=== PATIENT | female | born 1955 | race Caucasian/White ===

== ENCOUNTER 2016-10-27 18:36 | Inpatient (IN) ==
[2016-10-27] MEDS ORDERED: 0.9 % Sodium Chloride 1,000 ML IVC ONE (18:50)
[2016-10-27 19:10] LABS: Basophils % 0.2 %; Eosinophils % 0.1 %; Hematocrit 38.8 % (35.3-44.9); Hemoglobin 12.8 g/dL (11.5-15.4); Immature Granulocytes % 0.6 % (0-4); Lymphocytes # 1.5 K/mcL (0.6-4.6); Lymphocytes % 9.5 %; Mean Corpuscular Volume 91.1 fL (83.0-100.0); Mean Platelet Volume 9.6 fL (9.4-12.4); Monocytes % 6.1 %; Neutrophils # 13.3 K/mcL (1.6-8.9); Platelet Count 262 K/mcL (140-400); Red Blood Count 4.26 M/mcL (3.82-4.97); Red Cell Distribution Width 15.4 % (11.5-14.5); Segmented Neutrophils % 83.5 %
[2016-10-27 19:15] LABS: ABG Base Excess 4.7 mEq/L (-2.0 to 3.0); ABG HCO3 28.2 mEQ/L (21-27); ABG Oxygen Saturation 91 % (95-98); ABG PCO2 37 mmHg (35-45); ABG PH 7.49 pH Units (7.32-7.45); ABG PO2 55 mmHg (85-104); ABG TCO2 29.3 mEq/L (20-26); Blood Gas FiO2 28 %; INR 1.2; Prothrombin Time 12.6 Seconds (9.4-12.1)
[2016-10-27 19:17] LABS: Activated Partial Thrombo Time 27.9 Seconds (26.0-36.0)
[2016-10-27] MEDS ORDERED: Ipratropium/Albuterol Neb 3 ML IH ONE (19:17)
--- NOTE | 2016-10-27 19:18 | Emergency Department Note ---
Disposition Clinical Impression: Hypoxemia Pneumonia Qualifiers: Pneumonia type: due to unspecified organism Laterality: left Lung location: lower lobe of lung Qualified Code(s): J18.1 - Lobar pneumonia, unspecified organism Disposition: Admitted As Inpatient SOB HPI - General Chief Complaint: ED Altered Mental Status Stated Complaint: ams low o2 Time Seen by Provider: 10/27/16 18:37 Source: family (), EMS Mode of arrival: EMS Limitations: no limitations Nursing Notes Reviewed: Yes Vital Signs Reviewed: Yes - History of Present Illness Pt Subjective Complaint: shortness of breath Onset (ago): day(s) (3) Context: recent illness Severity: moderate Consistency/Duration: intermittent, gradually worsening Improves with: rest, bronchodilators Worsens with: nothing Known history of: COPD Associated symptoms: Reports: fever, cough, wheezing, sputum production Treatment prior to arrival: oxygen, bronchodilator Cough present: Yes Cough Description: Involuntary Cough Frequency: Intermittent Sputum production: Yes Sputum Amount: Small Sputum Color: Clear - Related Data Home Medications Medication Instructions Recorded Confirmed Alprazolam [Xanax 0.5 MG Tablet] 0.25 - 0.5 mg PO BID PRN 03/16/16 10/27/16 Atorvastatin Calcium [Lipitor] 20 mg PO HS 03/16/16 10/27/16 Citalopram Hydrobromide [Celexa] 40 mg PO QAM 03/16/16 10/27/16 Cyclobenzaprine [Flexeril] 10 mg PO TID 03/16/16 10/27/16 Metoprolol XL (24 HR) Succ [Toprol 25 mg PO DAILY 03/16/16 10/27/16 Xl] Albuterol Neb [Proventil Neb] 2.5 mg IH TID PRN 10/27/16 10/27/16 Budesonide/Formoterol 160/4.5 2 puff IH BIDR 10/27/16 10/27/16 [Symbicort 160/4.5] Gabapentin [Neurontin] 600 mg PO TID 10/27/16 10/27/16 Montelukast [Singulair] 10 mg PO HS 10/27/16 10/27/16 Naloxegol Oxalate [Movantik] 25 mg PO DAILY 10/27/16 10/27/16 Oxycodone HCl/Acetaminophen 1 each PO TID PRN 10/27/16 10/27/16 [Percocet 7.5-325 mg Tablet] Varenicline Tartrate [Chantix] 1 mg PO Q12H 10/27/16 10/27/16 Allergies Allergy/AdvReac Type Severity Reaction Status Date / Time No Known Allergies Allergy Unverified 08/12/15 09:10 All systems ED: reviewed and negative except as stated. Constitutional: Reports: fever, weakness Respiratory: Reports: cough, dyspnea, wheezes Past Medical History - Past Medical History Source: patient, old records reviewed, obtained from family, nursing notes reviewed Medical history: Reports: arthritis, asthma, COPD, hyperlipidemia, other Surgical history: Reports: hysterectomy, orthopedic, other Psychiatric history: Reports: anxiety, depression - Social History Smoking Status: Current every day smoker Smokeless Tobacco Status: No Alcohol use: Reports: occasionally Drug use: Reports: none Physical Exam - General Limitations: altered mental status (patient has some minor confusion with recalling some answers to her illness the last 2 days) General appearance: alert - Head Head exam: atraumatic, normocephalic, normal inspection - Eye Eye exam: Present: normal appearance, PERRL, EOMI - Expanded Eye Exam Pupils: Left: reactive - ENT ENT exam: normal exam, normal oropharynx, mucous membranes moist - Expanded ENT Exam External ear exam: Present: normal external inspection Mouth exam: Present: normal external inspection Teeth exam: Present: normal inspection Throat exam: Present: normal inspection - Neck Neck exam: Present: normal inspection, full ROM, trachea midline - Chest Chest inspection: Present: normal inspection, symmetric chest wall rise - Respiratory Respiratory exam: Present: wheezes (with course scattered rhonchi). Absent: respiratory distress - Cardiovascular Cardiovascular exam: Present: tachycardia - Abdominal Exam Abdominal exam: Present: soft, Non-Tender. Absent: tenderness, distention, guarding, rebound, rigidity - Extremities Exam Extremities exam: Present: normal inspection, full ROM. Absent: tenderness, pedal edema - Expanded Upper Extremity Exam Shoulder exam: Present: normal inspection, full ROM Arm exam: Present: normal inspection, full ROM Elbow exam: Present: normal inspection, full ROM Forearm/Wrist exam: Present: normal inspection, full ROM Hand exam: Present: normal inspection, full ROM Vascular exam: Normal: capillary refill, radial pulse - Expanded Lower Extremity Exam Hip/Pelvis exam: Present: normal inspection, full ROM Upper leg exam: Present: normal inspection, full ROM Knee exam: Present: normal inspection, full ROM Lower leg exam: Present: normal inspection, full ROM Ankle exam: Present: normal inspection, full ROM Foot/toe exam: Present: normal inspection, full ROM Neurovascular/Tendon exam: Absent: motor deficit, sensory deficit, tendon deficit - Back Exam Back exam: Present: normal inspection, full ROM. Absent: tenderness - Neurological Exam Neurological exam: Present: alert, oriented X3 - Expanded Neurological Exam Patient oriented to: Present: person, place, time Coma Scale Eye Opening: Spontaneous Coma Scale Motor Response: Obeys Commands Coma Scale Verbal Response: Oriented Coma Scale Total: 15 - Psychiatric Psychiatric exam: Present: normal affect, normal mood - Skin Skin exam: Present: warm, dry, intact, normal color Course Vital Signs Temperature 102.9 F H 10/27/16 18:37 Pulse Rate 122 10/27/16 18:37 Respiratory Rate 18 10/27/16 18:37 Blood Pressure 136/84 10/27/16 18:37 O2 Sat by Pulse Oximetry 88 L 10/27/16 18:37 Temperature 97.8 F 10/29/16 10:50 Pulse Rate 98 10/29/16 10:50 Respiratory Rate 16 10/29/16 10:50 Blood Pressure 100/68 10/29/16 10:50 O2 Sat by Pulse Oximetry 92 L 10/29/16 10:50 Oxygen Delivery Oxygen Delivery Nasal Cannula Shortness of Breath/Dyspnea - Differential Diagnosis Likely: acute exacerbation of chronic obstructive airways disease, congestive heart failure, pneumonia, asthma with exacerbation, pulmonary embolism, pneumothorax, arrhythmia - Medical Records Medical records reviewed: Yes I reviewed the patient's medical records. - Lab Data Lab results reviewed: Yes I reviewed the patient's lab results. Result diagrams: 10/28/16 03:24 10/28/16 03:24 Lab Results 10/27/16 10/27/16 10/27/16 Range/Units 18:50 18:50 18:50 WBC 15.9 H (4.3-11.1) K/mcL RBC 4.26 (3.82-4.97) M/mcL Hgb 12.8 (11.5-15.4) g/dL Hct 38.8 (35.3-44.9) % MCV 91.1 (83.0-100.0) fL MCH 30.0 (28.0-33.3) pg MCHC 33.0 (31.6-35.5) g/dL RDW 15.4 H (11.5-14.5) % Plt Count 262 (140-400) K/mcL MPV 9.6 (9.4-12.4) fL Immature Gran % 0.6 (0-4) % Seg Neutrophils % 83.5 % Lymphocytes % 9.5 % Monocytes % 6.1 % Eosinophils % 0.1 % Basophils % 0.2 % Neutrophils # 13.3 H (1.6-8.9) K/mcL Lymphocytes # 1.5 (0.6-4.6) K/mcL Monocytes # 1.0 (0.0-1.3) K/mcL Eosinophils # 0.0 (0.0-0.6) K/mcL Basophils # 0.0 (0.0-0.2) K/mcL PT 12.6 H (9.4-12.1) Seconds INR 1.2 APTT 27.9 (26.0-36.0) Seconds ABG pH (7.32-7.45) pH Units ABG pCO2 (35-45) mmHg ABG pO2 (85-104) mmHg ABG HCO3 (21-27) mEQ/L ABG Total CO2 (20-26) mEq/L ABG O2 Saturation (95-98) % ABG Base Excess (-2.0 to 3.0) mEq/L Blood Gas Modality Inspired O2 % Sodium 132 L (136-145) mEq/L Potassium 3.6 (3.5-4.5) mEq/L Chloride 95 L (98-109) mEq/L Carbon Dioxide 26 (19-29) mEq/L BUN 9 (7-20) mg/dL Creatinine 0.76 (0.57-1.11) mg/dL Est GFR ( Amer) > 60 (> 60) Est GFR (Non-Af Amer) > 60 (> 60) BUN/Creatinine Ratio 12 (6-26) Glucose 87 (70-99) mg/dL Calculated Osmolality 272 L (280-300) Lactic Acid (0.5-2.2) mmol/L Calcium 8.9 (8.6-10.8) mg/dL Troponin I (0-0.03) ng/mL B-Natriuretic Peptide (0-100) pg/mL 10/27/16 10/27/16 10/27/16 Range/Units 18:50 18:50 18:50 WBC (4.3-11.1) K/mcL RBC (3.82-4.97) M/mcL Hgb (11.5-15.4) g/dL Hct (35.3-44.9) % MCV (83.0-100.0) fL MCH (28.0-33.3) pg MCHC (31.6-35.5) g/dL RDW (11.5-14.5) % Plt Count (140-400) K/mcL MPV (9.4-12.4) fL Immature Gran % (0-4) % Seg Neutrophils % % Lymphocytes % % Monocytes % % Eosinophils % % Basophils % % Neutrophils # (1.6-8.9) K/mcL Lymphocytes # (0.6-4.6) K/mcL Monocytes # (0.0-1.3) K/mcL Eosinophils # (0.0-0.6) K/mcL Basophils # (0.0-0.2) K/mcL PT (9.4-12.1) Seconds INR APTT (26.0-36.0) Seconds ABG pH 7.49 H (7.32-7.45) pH Units ABG pCO2 37 (35-45) mmHg ABG pO2 55 L (85-104) mmHg ABG HCO3 28.2 H (21-27) mEQ/L ABG Total CO2 29.3 H (20-26) mEq/L ABG O2 Saturation 91 L (95-98) % ABG Base Excess 4.7 H (-2.0 to 3.0) mEq/L Blood Gas Modality [place] Inspired O2 28 % Sodium (136-145) mEq/L Potassium (3.5-4.5) mEq/L Chloride (98-109) mEq/L Carbon Dioxide (19-29) mEq/L BUN (7-20) mg/dL Creatinine (0.57-1.11) mg/dL Est GFR ( Amer) (> 60) Est GFR (Non-Af Amer) (> 60) BUN/Creatinine Ratio (6-26) Glucose (70-99) mg/dL Calculated Osmolality (280-300) Lactic Acid (0.5-2.2) mmol/L Calcium (8.6-10.8) mg/dL Troponin I 0.01 (0-0.03) ng/mL B-Natriuretic Peptide 15 (0-100) pg/mL 10/27/16 Range/Units 18:50 WBC (4.3-11.1) K/mcL RBC (3.82-4.97) M/mcL Hgb (11.5-15.4) g/dL Hct (35.3-44.9) % MCV (83.0-100.0) fL MCH (28.0-33.3) pg MCHC (31.6-35.5) g/dL RDW (11.5-14.5) % Plt Count (140-400) K/mcL MPV (9.4-12.4) fL Immature Gran % (0-4) % Seg Neutrophils % % Lymphocytes % % Monocytes % % Eosinophils % % Basophils % % Neutrophils # (1.6-8.9) K/mcL Lymphocytes # (0.6-4.6) K/mcL Monocytes # (0.0-1.3) K/mcL Eosinophils # (0.0-0.6) K/mcL Basophils # (0.0-0.2) K/mcL PT (9.4-12.1) Seconds INR APTT (26.0-36.0) Seconds ABG pH (7.32-7.45) pH Units ABG pCO2 (35-45) mmHg ABG pO2 (85-104) mmHg ABG HCO3 (21-27) mEQ/L ABG Total CO2 (20-26) mEq/L ABG O2 Saturation (95-98) % ABG Base Excess (-2.0 to 3.0) mEq/L Blood Gas Modality Inspired O2 % Sodium (136-145) mEq/L Potassium (3.5-4.5) mEq/L Chloride (98-109) mEq/L Carbon Dioxide (19-29) mEq/L BUN (7-20) mg/dL Creatinine (0.57-1.11) mg/dL Est GFR ( Amer) (> 60) Est GFR (Non-Af Amer) (> 60) BUN/Creatinine Ratio (6-26) Glucose (70-99) mg/dL Calculated Osmolality (280-300) Lactic Acid 1.1 (0.5-2.2) mmol/L Calcium (8.6-10.8) mg/dL Troponin I (0-0.03) ng/mL B-Natriuretic Peptide (0-100) pg/mL - Radiology Data Radiology results reviewed: Yes I reviewed the patient's radiology results. Critical Care Time Critical Care Time: Yes Total Critical Care Time: 35 Attestation: Critical care performed: Time is exclusive of separately billable procedures. Time includes: direct patient care, patient reassessment, coordination of patient care, interpretation of data (laboratory data, radiology data, and respiratory data), review of patient's medical records, medical consultation and documentation of patient care. Procedures included in critical care time: Procedures excluded from critical care time:
[2016-10-27 19:24] LABS: BUN/Creatinine Ratio 12 (6-26); Blood Urea Nitrogen 9 mg/dL (7-20); Calcium 8.9 mg/dL (8.6-10.8); Carbon Dioxide 26 mEq/L (19-29); Chloride 95 mEq/L (98-109); Glucose 87 mg/dL (70-99); Osmolality,Calculated 272 (280-300); Potassium 3.6 mEq/L (3.5-4.5); Sodium 132 mEq/L (136-145); eGFR For African Americans > 60 (> 60); eGFR For Non-African Americans > 60 (> 60)
[2016-10-27] MEDS ORDERED: methylPREDNISolone 125 MG/2 ML VIAL IVP ONE (19:46)
[2016-10-27] MEDS ORDERED: Levofloxacin 750 MG/150 ML 750 MG/150 ML BAG IVPB ONE (19:46)
--- NOTE | 2016-10-28 00:28 | Internal Med History&Physical ---
Date of Encounter: 10/27/16 Time of Encounter: 23:55 Assessment and Plan (1) COPD exacerbation Current visit: No Status: Acute COPD exacerbation with associated leukocytosis and possible pneumonia according to chest x-ray. We will continue with IV antibiotics. Systemic steroids and nebulizer therapy. Negative influenza testing. Oxygen supplementation will be provided. DVT prophylaxis as per hospital protocol. GI prophylaxis. Negative troponin. Brain natriuretic peptide within normal limits. (2) DVT prophylaxis Current visit: No Status: Acute DVT prophylaxis as per hospital protocol. (3) HTN (hypertension) Current visit: No Status: Acute Qualifiers: Qualified Code(s): I10 - Essential (primary) hypertension (4) Hyponatremia Current visit: No Status: Acute Seems to be chronic, hyponatremia levels noted in the past. Continue monitoring. Internal Medicine - H&P: HPI Chief complaint: Fever Admitted From: Emergency Dept Plans for Post Hospital Care: Home History of present illness: Ms. Dutton is a 61 year old female with past medical history of COPD, former smoker, hypertension. The patient presented to our emergency department complaining of 5 days of progressive shortness of breath, productive cough of yellowish sputum, fever and chills associated with generalized weakness and confusion. The patient has been febrile since arrival to our emergency department. She denies chest pain, loss of consciousness, recent trauma. Initial workup included a Duragesic count of 15.9, he will be put 0.5. Biochemistry was significant for sodium of 132, potassium 3.6, creatinine 0.76, glucose 87. Troponin initially negative, brain atretic peptide was 16. Chest x -ray was reported as possible atelectasis versus pneumonia. The patient has been admitted for further management and workup. Testing for influenza was negative. During my encounter with the patient she was alert, awake, oriented in time, place and person. Past Med Surg Social Fam HX - Past Medical History Medical history: arthritis, asthma, COPD, hyperlipidemia, other Psychiatric history: anxiety, depression - Past Surgical History Surgical History: hysterectomy, orthopedic, other - Social History Smoking Status: Former smoker Smokeless Tobacco Status: No Alcohol use: occasionally Drug use: none - Family History Mother Hx Family Cardiac Disorders: Yes (CHF) Hx Family Respiratory Disorders: Yes Father Hx Family Cardiac Disorders: Yes (DC) Internal Medicine - H&P: Meds Alprazolam [Xanax 0.5 MG Tablet] 0.25 - 0.5 mg PO BID PRN 03/16/16 [History] Atorvastatin Calcium [Lipitor] 20 mg PO HS 03/16/16 [History] Citalopram Hydrobromide [Celexa] 40 mg PO QAM 03/16/16 [History] Cyclobenzaprine [Flexeril] 10 mg PO TID 03/16/16 [History] Metoprolol XL (24 HR) Succ [Toprol Xl] 25 mg PO DAILY 03/16/16 [History] Albuterol Neb [Proventil Neb] 2.5 mg IH TID PRN 10/27/16 [History] Budesonide/Formoterol 160/4.5 [Symbicort 160/4.5] 2 puff IH BIDR 10/27/16 [ History] Gabapentin [Neurontin] 600 mg PO TID 10/27/16 [History] Montelukast [Singulair] 10 mg PO HS 10/27/16 [History] Naloxegol Oxalate [Movantik] 25 mg PO DAILY 10/27/16 [History] Oxycodone HCl/Acetaminophen [Percocet 7.5-325 mg Tablet] 1 each PO TID PRN 10/27 [History] Varenicline Tartrate [Chantix] 1 mg PO Q12H 10/27/16 [History] Allergies No Known Allergies Allergy (Unverified 08/12/15 09:10) All Systems PM: A 10-system review of systems was performed and is negative for pertinent findings except as documented above in the HPI. - Constitutional Constitutional: as per HPI, chills, excessive sweating, fever(s), malaise, no night sweats - EENT Eyes: as per HPI, no change in vision, no discharge, no pain, no photophobia Ears: as per HPI, no ear discharge, no ear pain, no tinnitus Nose, mouth and throat: as per HPI, no dysphagia, no nasal discharge, no neck pain, no sore throat - Breasts Breasts: as per HPI - Cardiovascular Cardiovascular ROS IM: as per HPI, no chest pain, no diaphoresis, no dyspnea, no lightheadedness, no palpitations, no syncope - Respiratory Respiratory: as per HPI, cough, dyspnea, no wheezing, no excessive phlegm production - Gastrointestinal Gastrointestinal: as per HPI, no abdominal pain, no diarrhea, no hematemesis, no hematochezia, no melena, no nausea, no vomiting - Genitourinary Genitourinary: as per HPI, no change in urinary stream, no dysuria, no flank pain, no hematuria Menstruation: as per HPI - Musculoskeletal Musculoskeletal ROS IM: as per HPI, no numbness, no tingling - Integumentary Integumentary IM: as per HPI, no rash, no unusual bruising - Neurological Neurological ROS: as per HPI, no confusion, no convulsions, no focal weakness, no numbness, no tingling, no tremor(s) - Psychiatric Psychiatric: as per HPI - Endocrine Endocrine IM: as per HPI - Hematologic/Lymphatic Hematologic/Lymphatic: as per HPI, no easy bruising - Constitutional Vitals: Temp Pulse Resp BP Pulse Ox 99.6 F 101 14 100/62 93 L 10/27/16 21:56 10/27/16 21:56 10/27/16 21:56 10/27/16 21:56 10/27/16 21:56 General appearance: Present: cooperative, A&O X 3, pleasant, no acute distress - Head Head exam: Present: atraumatic, normocephalic - Eye Eye exam: Present: PERRL, conjuntiva pink, sclera anicteric Pupils: Present: PERRL - Neck Neck exam general surgery: Present: supple, trachea midline. Absent: lymphadenopathy - Respiratory Respiratory exam: Present: decreased breath sounds, wheezes. Absent: accessory muscle use, rales, rhonchi - Cardiovascular Cardiovascular exam: Present: RRR, +S1, +S2. Absent: diastolic murmur, gallop, rubs, systolic murmur - GI/Abdominal GI/Abdominal exam: Present: normal bowel sounds, soft, no peritoneal signs. Absent: distended, tenderness - Extremities Exam Extremities exam: Present: warm, radial pulses palpable and symetrical. Absent : calf tenderness, cyanotic, pedal edema - Neurological Exam Neurological exam: Present: CN II-XII intact, oriented X3, no focal deficits. Absent: pronater drift, facial droop, speech deficit - Skin Skin exam: Present: dry, intact Internal Med - H&P Results - Labs CBC & Chem 7: 10/27/16 18:50 10/27/16 18:50
[2016-10-28] MEDS ORDERED: Naloxone 0.4 MG/ML INJ IVP PRN (00:32)
[2016-10-28] MEDS ORDERED: *HR* Morphine 2 MG/ML SYRINGE IVP PRN (00:32)
[2016-10-28] MEDS ORDERED: Ondansetron 4 MG/2 ML VIAL IVP PRN (00:32)
[2016-10-28] MEDS ORDERED: Albuterol 2.5 MG/3 ML NEBULIZER IH PRN (00:32)
[2016-10-28] MEDS ORDERED: Acetaminophen 325 MG TABLET PO PRN (00:32)
[2016-10-28 02:20] LABS: Bilirubin,Urine Negative (Negative); Blood,Urine Negative (Negative); Clarity,Urine Cloudy (Clear); Color,Urine Yellow (Yellow); Glucose,Urine (UA) Normal (Normal); Ketones,Urine Negative (Negative); Leukocyte Esterase,Urine Small (Negative); Nitrite,Urine Negative (Negative); Protein,Urine Negative (Neg-Trace); Specific Gravity,Urine 1.014 (1.010-1.025); Urobilinogen,Urine Normal (Normal)
[2016-10-28 02:22] LABS: Hyaline Casts,Urine None Seen per lpf (None-Few); Squamous Epithelial Cell,Urine Many per lpf (None-Few)
[2016-10-28 02:31] LABS: Bacteria,Urine Many per hpf (None-Few)
[2016-10-28] MEDS ORDERED: 0.9 % Sodium Chloride 1,000 ML IVC ONE (04:01)
[2016-10-28 04:25] LABS: Basophils % 0.1 %; Hematocrit 34.5 % (35.3-44.9); Hemoglobin 11.5 g/dL (11.5-15.4); Immature Granulocytes % 0.6 % (0-4); Lymphocytes # 0.6 K/mcL (0.6-4.6); Lymphocytes % 3.8 %; Mean Corpuscular HGB Conc 33.3 g/dL (31.6-35.5); Mean Corpuscular Hemoglobin 30.7 pg (28.0-33.3); Mean Corpuscular Volume 92.2 fL (83.0-100.0); Mean Platelet Volume 10.3 fL (9.4-12.4); Monocytes # 0.3 K/mcL (0.0-1.3); Monocytes % 1.6 %; Platelet Count 250 K/mcL (140-400); Red Blood Count 3.74 M/mcL (3.82-4.97); Red Cell Distribution Width 15.4 % (11.5-14.5); Segmented Neutrophils % 93.9 %
[2016-10-28 04:51] LABS: BUN/Creatinine Ratio 13 (6-26); Blood Urea Nitrogen 9 mg/dL (7-20); Calcium 8.2 mg/dL (8.6-10.8); Carbon Dioxide 24 mEq/L (19-29); Chloride 99 mEq/L (98-109); Glucose 156 mg/dL (70-99); Osmolality,Calculated 276 (280-300); Potassium 3.8 mEq/L (3.5-4.5); Sodium 132 mEq/L (136-145); eGFR For African Americans > 60 (> 60); eGFR For Non-African Americans > 60 (> 60)
[2016-10-28] MEDS: Ipratropium/Albuterol Neb 3 ML IH SCH ×4 (05:12→20:31)
[2016-10-28] MEDS: MethylPREDNISolone 40 MG/ML VIAL IVP SCH ×2 (05:32→18:13)
[2016-10-28] MEDS: Famotidine 20 MG/2 ML VIAL IVP SCH ×2 (05:33→18:12)
[2016-10-28] MEDS: *HR* Heparin 5,000 UNIT/ML VIAL SQ SCH ×2 (05:37→18:12)
[2016-10-28] MEDS ORDERED: ALPRAZolam 0.5 MG TABLET PO PRN (13:17)
[2016-10-28] MEDS ORDERED: *HR* HYDROcodone/Acet 5/325 mg TABLET PO PRN (13:47)
[2016-10-28] MEDS: 0.9 % Sodium Chloride 1,000 ML IVC SCH (14:38)
[2016-10-28] MEDS: Gabapentin 300 MG CAPSULE PO SCH ×2 (14:45→20:57)
[2016-10-28] MEDS: Metoprolol XL (24 HR) Succ 25 MG TAB.ER.24H PO SCH (14:46)
[2016-10-28] MEDS: (Naloxegol Oxalate [Movantik] 25 MG) PO SCH (14:46)
--- NOTE | 2016-10-28 14:52 | Internal Med Progress Note ---
Date of Encounter: 10/28/16 Time of Encounter: 14:00 - Assessment and plan (1) Pneumonia Current Visit: Yes Status: Acute Assessment and plan: Chest x-ray consistent with left lower lobe atelectasis versus pneumonia. Given her leukocytosis and fever upon presentation, clinical findings more consistent with pneumonia. Will continue levofloxacin. Continue pulmonary toilet measures. Flu swab negative. Currently tolerating room air. ITS Impressions Chest X-Ray 10/27/16 18:37 IMPRESSION: Linear opacities in the left lung base, atelectasis versus pneumonia. D/ / Elliot Novak MD / Elliot Novak MD Interpreting Provider: Elliot Novak MD (2) COPD exacerbation Current Visit: No Status: Acute Assessment and plan: On examination, patient is tolerating room air at this time however she states she is still more short of breath than usual. Poor aeration noted throughout. We will obtain an echocardiogram as well. Leukocytosis noted. Hypotension noted in treating with IV fluids. Heart rate stable. Lactic acid normal. Urine test for strep pneumoniae and Legionella negative. Patient with musculoskeletal chest pain worsened with coughing and movement. We will control her pain and anxiety. Mucolytics added (3) Acute on chronic respiratory failure with hypoxia and hypercapnia Current Visit: No Status: Chronic Assessment and plan: Acute on chronic. Patient states she uses 2 L per nasal cannula as needed at home and mostly only needs it at bedtime however over the past week or so she has had to use it more during the day. She is currently tolerating room air. (4) DVT prophylaxis Current Visit: No Status: Acute Assessment and plan: Subcutaneous heparin (5) HTN (hypertension) Current Visit: No Status: Chronic Assessment and plan: Patient has been borderline hypotensive thus far in the admission. Currently holding her metoprolol. We will continue to trend. Gentle IV fluids. Qualifiers: Qualified Code(s): I10 - Essential (primary) hypertension (6) Tobacco abuse Current Visit: No Status: Resolved (7) Anxiety Current Visit: No Status: Chronic Assessment and plan: Home Xanax has been continued (8) Hyponatremia Current Visit: No Status: Acute Assessment and plan: Acute on chronic times and associated with hyperosmolality. Patient stated she does not typically eat very much, we will continue to trend - Subjective Interval history: Patient seen and examined. On examination, patient sitting upright in bed. Patient alert and oriented 3 currently complains of chest pain with coughing as well as rib pain. Patient stating she is still more short of breath and usual. She states she is eating well. She also states her cough is now more productive. - Constitutional Vitals: Temp Pulse Resp BP Pulse Ox 96.9 F L 93 16 92/60 94 L 10/28/16 11:04 10/28/16 11:04 10/28/16 11:04 10/28/16 11:04 10/28/16 11:04 General appearance: Present: cooperative, mild distress, A&O X 3, pleasant, answers questions appropriately - Head Head exam: Present: atraumatic, normocephalic - Eye Eye exam: Present: PERRL, conjuntiva pink, sclera anicteric Pupils: Present: PERRL - Neck Neck exam general surgery: Present: supple, trachea midline. Absent: lymphadenopathy - Respiratory Respiratory exam: Present: accessory muscle use, decreased breath sounds, prolonged expiratory phase, respiratory distress (mild), wheezes. Absent: rales , rhonchi - Cardiovascular Cardiovascular exam: Present: RRR, +S1, +S2. Absent: diastolic murmur, gallop, rubs, systolic murmur - GI/Abdominal GI/Abdominal exam: Present: normal bowel sounds, soft, no peritoneal signs. Absent: distended, tenderness - Extremities Exam Extremities exam: Present: warm, radial pulses palpable and symetrical. Absent : calf tenderness, cyanotic, pedal edema - Neurological Exam Neurological exam: Present: alert, CN II-XII intact, oriented X3, no focal deficits, strengths equal and symetr throughout. Absent: pronater drift, facial droop, speech deficit - Skin Skin exam: Present: dry, intact, normal color, warm Internal Medicine: Result - Labs CBC & Chem 7: 10/28/16 03:24 10/28/16 03:24 Labs: Short CBC 10/28/16 Range/Units 03:24 WBC 16.0 H (4.3-11.1) K/mcL Hgb 11.5 (11.5-15.4) g/dL Hct 34.5 L (35.3-44.9) % Plt Count 250 (140-400) K/mcL Neutrophils # 15.0 H (1.6-8.9) K/mcL BMP 10/28/16 03:24 Sodium 132 L Potassium 3.8 Chloride 99 Carbon Dioxide 24 BUN 9 Creatinine 0.69 Glucose 156 H Calcium 8.2 L Urine 10/28/16 Range/Units 02:00 Urine Color Yellow (Yellow) Urine Clarity Cloudy A (Clear) Urine pH 6.0 (5.0-8.0) pH Units Ur Specific [place] 1.014 (1.010-1.025) Urine Protein Negative (Neg-Trace) mg/dL Urine Glucose (UA) Normal (Normal) mg/dL - ABG Interpretation ABG results: ABG ABG pH 7.49 pH Units (7.32-7.45) H 10/27/16 18:50 ABG pCO2 37 mmHg (35-45) 10/27/16 18:50 ABG pO2 55 mmHg (85-104) L 10/27/16 18:50 ABG O2 Saturation 91 % (95-98) L 10/27/16 18:50 PT/INR, D-dimer PT 12.6 Seconds (9.4-12.1) H 10/27/16 18:50 Consult Discharge Plan - Plan Referrals: Francois Daly MD [Primary Care Provider] -
[2016-10-28] MEDS: Budesonide/Formoterol 160/4.5 MDI IH SCH ×2 (16:49→20:31)
--- NOTE | 2016-10-28 18:07 | Electrocardiograph Report ---
[place] [id number] Test Date: 2016-10-27 Pat Name: Lore Dutton Department: 103 Room: 3B48 Gender: F [employer]: LISA : 1955 Requested By: Jean De La Rosa Order Number: [id number] Reading MD: Adelina Moulton Measurements Intervals [place] Rate: 120 P: 63 NV: 136 QRS: 71 QRSD: 81 T: 55 QT: 294 QTc: 366 Interpretive Statements SINUS TACHYCARDIA Electronically Signed On 10-28-2016 18:05:53 EDT by Adelina Moulton
[2016-10-28] MEDS: *HR* OxyCODONE/APAP 7.5/325 TABLET PO PRN (18:12)
[2016-10-28] MEDS ORDERED: Levofloxacin 750 MG/150 ML 750 MG/150 ML BAG IVPB SCH (21:00)
[2016-10-28] MEDS: ALPRAZolam 0.5 MG TABLET PO PRN (22:19)
[2016-10-29] MEDS: Ipratropium/Albuterol Neb 3 ML IH SCH ×5 (00:14→15:25)
[2016-10-29] MEDS: MethylPREDNISolone 40 MG/ML VIAL IVP SCH (05:32)
[2016-10-29] MEDS: Famotidine 20 MG/2 ML VIAL IVP SCH (05:33)
[2016-10-29] MEDS: *HR* Heparin 5,000 UNIT/ML VIAL SQ SCH (05:35)
[2016-10-29] MEDS: *HR* OxyCODONE/APAP 7.5/325 TABLET PO PRN ×2 (05:39→14:56)
[2016-10-29] MEDS: Budesonide/Formoterol 160/4.5 MDI IH SCH (07:56)
[2016-10-29] MEDS: Gabapentin 300 MG CAPSULE PO SCH ×2 (08:09→14:55)
[2016-10-29] MEDS: (Naloxegol Oxalate [Movantik] 25 MG) PO SCH (08:12)
[2016-10-29] MEDS: Metoprolol XL (24 HR) Succ 25 MG TAB.ER.24H PO SCH (08:20)
[2016-10-29] MEDS: 0.9 % Sodium Chloride 1,000 ML IVC SCH (10:03)
--- NOTE | 2016-10-29 10:54 | ECHO - Doppler Report ---
Echocardiogram Name: Lore Dutton Date of Study: 10/28/2016 Date: 1955 Ht: 62.0 in Medical Record#: [id number] Age: 61 Wt: 137.0 lb Gender: Female BSA: 1.63 Order #: [id number] Location: [facility] Room #: [id number] Reading Physician: Raudel Mart DO, KYRA, AGUSTIN PONCE E [employer] Retailer: Amy Elias Ordering Physician: Alicia Hodges CNP Primary Physician: Francois Daly MD Indications: Shortness of breath Impressions: LVEF 60-65%. Normal LV chamber size, wall thickness and function. Atypical septal motion possibly due to bundle branch block. Mild left ventricular diastolic dysfunction. Normal right ventricular structure and function. No evidence of pulmonary hypertension. No significant valvular dysfunction. Left Ventricular Wall Motion: Rest Echo Findings All wall segments showed normal motion. Findings: Study Quality * Technically adequate exam. ECG Findings * Normal sinus rhythm with a possible bundle branch block. Left Ventricle * LVEF 60-65%. * Normal LV chamber size, wall thickness and function. * Atypical septal motion possibly due to bundle branch block. * Mild left ventricular diastolic dysfunction. Right Ventricle * Normal right ventricular structure and function. Left Atrium * Mildly dilated left atrium. Right Atrium * Normal right atrial size. Interatrial Septum * Interatrial septum not well evaluated. Aortic Valve * Trileaflet aortic valve. * Trileaflet aortic valve with normal function. * No aortic regurgitation. * No aortic stenosis. Mitral Valve * Normal mitral valve structure and function. * No mitral stenosis. * No mitral regurgitation. Tricuspid Valve * Normal tricuspid valve structure and function. * Trace tricuspid regurgitation. * No evidence of pulmonary hypertension. Pulmonic Valve * Pulmonic valve not well visualized. * No pulmonic regurgitation. Aorta * Normally sized aortic root. Pericardium * The pericardium appears normal. IVC * Normal IVC dimensions and inspiratory collapse. Pulmonary Artery * Normal visualized portions of the main pulmonary artery. History Hypercholesteremia Family History of CAD 08/08/2011 a Previous Echo was performed. Measurements: BP: 111/ 71 2D Normal Values RVIDd: 2.80 cm <2.7 cm IVSd: .70 cm 0.6 - 1.0 cm LVIDd: 3.70 cm 3.7 - 5.6 cm LVPWd: .80 cm 0.6 - 1.1 cm LVIDs: 2.70 cm 1.5 - 3.6 cm AO: 2.30 cm < 4.0 cm LA: 3.10 cm 2.0 - 4.0cm %FS: 27.00 cm >25 % LA volume: 47 Mitral Valve Peak E:.89 m/sec Peak A:.79 m/sec E/A Ratio:1.1 Peak E' Lat Endy:10.2 cm/s Peak E' Med Endy:8.58 cm/s E/E' Lat Ratio:8.8 E/E' Med Ratio:10.4 Tricuspid Valve TV Regurg Peak Grad: 21.00mmHg TV Regurg Peak Endy: 2.27m/sec Updated by Raudel Mart DO, KYRA, KRIS, AGUSTIN on 10/29/2016 10:50:02 AM electronically signed on 10/29/2016 10:50:26 AM with status of Final Wall Motion Carpio: 1=Normal, 2=Hypokinesis, 3=Akinesis, 4=Dyskinesis, 5=Aneurysmal, 6=Hyperkinetic, X=Not Visualized (Blank)=Missing
[2016-10-29 15:14] VITALS: BP 125/81
[2016-10-29] MEDS: ALPRAZolam 0.5 MG TABLET PO PRN (15:38)
--- NOTE | 2016-10-29 17:32 | Discharge Summary ---
Date of Encounter: 10/29/16 Time of Encounter: 16:00 - Discharge Diagnosis (1) Pneumonia Priority: Primary Status: Acute Comments: Chest x-ray consistent with left lower lobe atelectasis versus pneumonia. Given her leukocytosis and fever upon presentation, she was treated for pneumonia of unknown etiology, no recent admissions or concern for pseudomonas, likely community-acquired and she was treated with levofloxacin. (2) COPD exacerbation Priority: Primary Status: Resolved Comments: Patient denies shortness of breath above her normal day of discharge (3) Acute on chronic respiratory failure with hypoxia and hypercapnia Priority: Secondary Status: Chronic Comments: Acute on chronic. Patient states she uses 2 L per nasal cannula as needed at home and mostly only needs it at bedtime however over the past week or so she has had to use it more during the day. She tolerated room air while admitted (4) DVT prophylaxis Priority: Primary Status: Acute Comments: Subcutaneous heparin while admitted (5) HTN (hypertension) Priority: Secondary Status: Chronic Comments: Patient was initially borderline hypotensive however became normotensive prior to discharge. Recommend daily blood pressure checks at home, keeping a log, and following up outpatient. (6) Tobacco abuse Priority: Secondary Status: Resolved (7) Anxiety Priority: Secondary Status: Chronic (8) Hyponatremia Priority: Primary Status: Acute Comments: Acute on chronic and associated with hyperosmolality. Patient stated she does not typically eat very much. Follow-up outpatient (9) Abnormal urinalysis Priority: Primary Status: Ruled-out Comments: Urine culture negative (10) Skin abnormality Priority: Primary Status: Acute Comments: Patient with cystic-like area to her left posterior upper back that she states is been present for several years. Consistent with benign cyst however just superior to this area is a skin tag that warrants further investigation of possible biopsy at the discretion of her primary care provider. She was instructed to show her primary care provider. She has a lengthy history of tanning. - Discharge Medications Prescriptions: GuaiFENesin ER [Mucinex] 600 mg PO BID #14 tbbp.12hr Levofloxacin 750 mg PO DAILY #5 tablet PredniSONE 10 mg PO DAILY #41 tablet Home Medications: Alprazolam [Xanax 0.5 MG Tablet] 0.25 - 0.5 mg PO BID PRN 03/16/16 [History] Atorvastatin Calcium [Lipitor] 20 mg PO HS 03/16/16 [History] Citalopram Hydrobromide [Celexa] 40 mg PO QAM 03/16/16 [History] Cyclobenzaprine [Flexeril] 10 mg PO TID 03/16/16 [History] Metoprolol XL (24 HR) Succ [Toprol Xl] 25 mg PO DAILY 03/16/16 [History] Albuterol Neb [Proventil Neb] 2.5 mg IH TID PRN 10/27/16 [History] Budesonide/Formoterol 160/4.5 [Symbicort 160/4.5] 2 puff IH BIDR 10/27/16 [ History] Gabapentin [Neurontin] 600 mg PO TID 10/27/16 [History] Montelukast [Singulair] 10 mg PO HS 10/27/16 [History] Naloxegol Oxalate [Movantik] 25 mg PO DAILY 10/27/16 [History] Oxycodone HCl/Acetaminophen [Percocet 7.5-325 mg Tablet] 1 each PO TID PRN 10/27 [History] Varenicline Tartrate [Chantix] 1 mg PO Q12H 10/27/16 [History] GuaiFENesin ER [Mucinex] 600 mg PO BID #14 tbbp.12hr 10/29/16 [Rx] Levofloxacin 750 mg PO DAILY #5 tablet 10/29/16 [Rx] PredniSONE 10 mg PO DAILY #41 tablet 10/29/16 [Rx] Allergies/Adverse Reactions: Allergies No Known Allergies Allergy (Unverified 08/12/15 09:10) Procedures/tests Complete & Pending: Procedures Performed prior 72 hours Category Date Time Status EV echocardiogram Routine Y 10/28/16 09:26 Completed Date of admission: 10/28/16 00:50 Primary care physician: Francois Daly MD Consults: 10/28/16 00:32 Consult to Nurse Navigator [CONS] Routine Comment: Discharging clinician: Alicia Hodges Anticipated date of discharge: 10/29/16 - Patient Status Disposition: Home, Self-Care Condition: Fair Functional capacity at discharge: independent ambulation Overall status at discharge: patient is progressing back to baseline - Discharge Instructions Follow Up With: Francois Daly MD [Primary Care Provider] - 11/05/16 3:00 pm Additional Instructions: Follow-up with primary care provider as scheduled - Diet and Activity Activity: increase activity as tolerated Diet: low fat, low cholesterol, low salt diet Hospital course: Ms. Dutton is a 61 year old female with history of COPD on 2 L per nasal cannula as needed at home, former tobacco abuse, hypertension. Patient presented to the emergency department chief complaint 5 days of progressive shortness of breath, productive cough with yellow sputum, fever and chills associated with generalized weakness and confusion. Patient was febrile upon presentation to the emergency department. Patient denied chest pain or loss of consciousness. Workup in the emergency department revealing left lower lobe atelectasis versus pneumonia. She had mild leukocytosis so she was admitted to the hospitalist service for further evaluation and management with suspicion of pneumonia and COPD exacerbation. Patient remained alert and oriented 3 throughout this admission and her leukocytosis remained stable. ABGs unremarkable. She was initially mildly hypotensive that resolved with IV fluids and her lactic acid was normal. Her urines test for strep pneumonia and legionella were negative. Patient had musculoskeletal chest pain that was abated with her regular pain medication. She was admitted and observed over the course of 3 days and on day of discharge, she denied shortness of breath above her norm and she was tolerating room air well. An echocardiogram was obtained due to her multiple readmissions for shortness of breath and initial weakness. Echocardiogram unremarkable with ejection fraction of 60-65%, mild diastolic dysfunction, with a possible bundle branch block-follow up outpatient with primary care provider. Patient also had an abnormal urinalysis however urine culture was negative. Flu swab negative. She was treated for her pneumonia with Levaquin. She was back to her baseline on day of discharge and she was discharged home in stable condition. Also of note, patient had an abnormal lesion to her back and she was extracted to show her primary care provider. She has a lengthy history of tanning. ITS Impressions Chest X-Ray 10/27/16 18:37 IMPRESSION: Linear opacities in the left lung base, atelectasis versus pneumonia. D/ / Elliot Novak MD / Elliot Novak MD Interpreting Provider: Elliot Novak MD Echocardiogram impressions: LVEF 60-65%. Normal LV chamber size, wall thickness and function. Atypical septal motion possibly due to bundle branch block. Mild left ventricular diastolic dysfunction. Normal right ventricular structure and function. No evidence of pulmonary hypertension. No significant valvular dysfunction. - Time Spent with Patient Total time spent providing and/or coordinating discharge services: - Constitutional Vitals: Temp Pulse Resp BP Pulse Ox 98.1 F 106 16 125/81 90 L 10/29/16 15:11 10/29/16 15:11 10/29/16 15:11 10/29/16 15:11 10/29/16 15:11 General appearance: Present: cooperative, A&O X 3, pleasant, no acute distress, answers questions appropriately - Head Head exam: Present: atraumatic, normocephalic - Eye Eye exam: Present: PERRL, conjuntiva pink, sclera anicteric Pupils: Present: PERRL - Neck Neck exam general surgery: Present: supple, trachea midline. Absent: lymphadenopathy - Respiratory Respiratory exam: Present: decreased breath sounds, prolonged expiratory phase, wheezes. Absent: accessory muscle use, rales, respiratory distress, rhonchi - Cardiovascular Cardiovascular exam: Present: RRR, +S1, +S2. Absent: diastolic murmur, gallop, rubs, systolic murmur - GI/Abdominal GI/Abdominal exam: Present: normal bowel sounds, soft, no peritoneal signs. Absent: distended, tenderness - Extremities Exam Extremities exam: Present: warm, radial pulses palpable and symetrical. Absent : calf tenderness, cyanotic, pedal edema - Neurological Exam Neurological exam: Present: alert, CN II-XII intact, normal gait, oriented X3, no focal deficits, strengths equal and symetr throughout. Absent: pronater drift, facial droop, speech deficit - Skin Skin exam: Present: dry, intact, normal color, warm
[2016-10-29] MEDS ORDERED: Famotidine 20 MG TABLET PO SCH (21:00)
== END 2016-10-29 18:25 | disposition home or self-care (01) | DRG 190 ==
LOC: EMEROO 18:36 → 3BNU 18:36
PROVIDERS: ADMIT Internal Medicine; ATTEND Nurse Practitioner Family

== ENCOUNTER 2016-12-24 07:46 | Inpatient (IN) ==
[2016-12-24] MEDS ORDERED: Ipratropium/Albuterol Neb 3 ML IH ONE (08:07)
[2016-12-24] MEDS ORDERED: Albuterol 2.5 MG/3 ML NEBULIZER IH ONE ×2 (08:07→10:33)
--- NOTE | 2016-12-24 08:28 | Emergency Department Note ---
Disposition Clinical Impression: COPD exacerbation Disposition: Admitted As Inpatient Condition: Fair Referrals: NO,PCP [Non-Partnered Physician] - Forms: ED Satisfaction Letter Time of Disposition: 11:24 SOB HPI - General Chief Complaint: ED Shortness of Breath/Dyspnea Stated Complaint: short of breath Time Seen by Provider: 12/24/16 07:57 Source: EMS Mode of arrival: EMS Limitations: altered mental status Nursing Notes Reviewed: Yes Vital Signs Reviewed: Yes - History of Present Illness 61-year-old female patient presents to the emergency department via EMS with complaint of altered mental status as well as shortness of breath. Patient has known COPD. It was reported by EMS that patient's oxygen saturation at home was 65% on 2 L which she normally wears. Patient is significantly somnolent, and it has been reported that she does take Percocet 7.5 mg. She denies any chest pain. She denies any recent illnesses. She denies any fever, chills, nausea, vomiting or abdominal pain. She denies any dizziness or lightheadedness. She has no known drug allergies. She has been on Percocet for an extended period of time which is prescribed by Dr. Payne for chronic back pain. Pt Subjective Complaint: shortness of breath, cough Onset (ago): hour(s) Severity: moderate, severe Consistency/Duration: constant, gradually worsening Improves with: bronchodilators Worsens with: nothing Known history of: COPD Associated symptoms: Reports: cough, wheezing. Denies: chest pain, pain with inspiration, fever Treatment prior to arrival: oxygen, bronchodilator, other (Solu-Medrol, 125 mg via IV) - Related Data Home Medications Medication Instructions Recorded Confirmed ALPRAZolam [Xanax 0.5 MG Tablet] 0.25 - 0.5 mg PO BID PRN 03/16/16 10/27/16 Atorvastatin Calcium [Lipitor] 20 mg PO HS 03/16/16 10/27/16 Citalopram Hydrobromide [Celexa] 40 mg PO QAM 03/16/16 10/27/16 Cyclobenzaprine [Flexeril] 10 mg PO TID 03/16/16 10/27/16 Metoprolol XL (24 HR) Succ [Toprol 25 mg PO DAILY 03/16/16 10/27/16 Xl] Albuterol Neb [Proventil Neb] 2.5 mg IH TID PRN 10/27/16 10/27/16 Budesonide/Formoterol 160/4.5 2 puff IH BIDR 10/27/16 10/27/16 [Symbicort 160/4.5] Gabapentin [Neurontin] 600 mg PO TID 10/27/16 10/27/16 Montelukast [Singulair] 10 mg PO HS 10/27/16 10/27/16 Naloxegol Oxalate [Movantik] 25 mg PO DAILY 10/27/16 10/27/16 Oxycodone HCl/Acetaminophen 1 each PO TID PRN 10/27/16 10/27/16 [Percocet 7.5-325 mg Tablet] Varenicline Tartrate [Chantix] 1 mg PO Q12H 10/27/16 10/27/16 Previous Rx's Medication Instructions Recorded GuaiFENesin ER [Mucinex] 600 mg PO BID #14 tbbp.12hr 10/29/16 levoFLOXacin [Levofloxacin] 750 mg PO DAILY #5 tablet 10/29/16 predniSONE [PredniSONE] 10 mg PO DAILY #41 tablet 10/29/16 Allergies Allergy/AdvReac Type Severity Reaction Status Date / Time No Known Allergies Allergy Unverified 08/12/15 09:10 All systems ED: reviewed and negative except as stated. Constitutional: Denies: fever, chills Cardiovascular: Denies: chest pain, palpitations Respiratory: Reports: cough, dyspnea, wheezes Gastrointestinal: Denies: abdominal pain, nausea, vomiting Genitourinary: Denies: urgency, dysuria Musculoskeletal: Denies: back pain, neck pain Integumentary: Denies: rash, abrasion, lesions Neurological: Denies: headache Psychiatric: Denies: anxiety, depression, suicidal thoughts, homicidal thoughts Past Medical History - Past Medical History Attestation: Yes The following information was validated with the patient. Source: patient, nursing notes reviewed Medical history: Reports: arthritis, asthma, COPD, hyperlipidemia, other Surgical history: Reports: hysterectomy, orthopedic, other Psychiatric history: Reports: anxiety, depression - Social History Smoking Status: Former smoker Smokeless Tobacco Status: No Alcohol use: Reports: occasionally Drug use: Reports: none Physical Exam - General Limitations: no limitations General appearance: appears intoxicated - Head Head exam: atraumatic, normocephalic, normal inspection - Eye Eye exam: Present: normal appearance, PERRL - Neck Neck exam: Present: normal inspection, full ROM, trachea midline - Chest Chest inspection: Present: normal inspection, symmetric chest wall rise - Expanded Respiratory Exam Location: wheezes: Lower, Upper, Right, Left, decreased breath sounds: Lower - Cardiovascular Cardiovascular exam: Present: regular rate, normal rhythm, normal heart sounds - Abdominal Exam Abdominal exam: Present: soft, Non-Tender, normal bowel sounds - Extremities Exam Extremities exam: Present: normal inspection, full ROM. Absent: tenderness, pedal edema - Expanded Lower Extremity Exam Gait: observed and normal - Back Exam Back exam: Present: normal inspection, full ROM. Absent: tenderness - Neurological Exam Neurological exam: Present: alert, oriented X3 - Psychiatric Psychiatric exam: Present: normal affect, normal mood - Skin Skin exam: Present: warm, dry, intact, normal color Course Course Narrative: Patient was very somnolent upon arrival to the emergency department, 2 mg of Narcan was administered and patient has been alert and oriented, appropriate since this medication was administered. Nebulize treatments being given at this time. Awaiting results of patient's chest x-ray. Oxygen saturation 96-97 % on 2 L which the patient wears at home. Patient is afebrile, nontoxic appearing. She continues to deny any chest pain. We will reevaluate the patient with plan to discharge home. - Consultations Consultation #1: I spoke with the Hospitalist, Dr. Murillo, he accepts the patient. Additional labs being ordered. Vital Signs Temperature 97.4 F L 12/24/16 07:49 Pulse Rate 98 12/24/16 07:49 Respiratory Rate 16 12/24/16 07:49 Blood Pressure 112/65 12/24/16 07:49 O2 Sat by Pulse Oximetry 100 12/24/16 07:49 Temperature 97.4 F L 12/24/16 07:49 Pulse Rate 90 12/24/16 11:03 Respiratory Rate 14 12/24/16 11:03 Blood Pressure 100/54 12/24/16 11:03 O2 Sat by Pulse Oximetry 94 12/24/16 11:03 Oxygen Delivery Oxygen Delivery Bipap Shortness of Breath/Dyspnea - Lab Data Lab results reviewed: Yes I reviewed the patient's lab results. Lab Results 05/19/17 Range/Units 09:49 VBG pH 7.30 L (7.32-7.42) pH Units VBG pCO2 71 H (41-51) mmHg VBG pO2 52 H (25-40) mmHg VBG HCO3 34.9 H (21-27) mEq/L - Radiology Data Radiology results reviewed: Yes I reviewed the patient's radiology results.
[2016-12-24 09:56] LABS: VBG HCO3 34.9 mEq/L (21-27); VBG PH 7.3 pH Units (7.32-7.42)
[2016-12-24] MEDS ORDERED: Ondansetron 4 MG/2 ML VIAL IVP PRN (11:26)
[2016-12-24] MEDS ORDERED: Acetaminophen 325 MG TABLET PO PRN (11:26)
[2016-12-24] MEDS ORDERED: Naloxone 0.4 MG/ML INJ IVP PRN (11:26)
[2016-12-24 11:46] LABS: ABG Base Excess 5.9 mEq/L (-2.0 to 3.0); ABG HCO3 33.1 mEQ/L (21-27); ABG Oxygen Saturation 91 % (95-98); ABG PCO2 60 mmHg (35-45); ABG PH 7.35 pH Units (7.32-7.45); ABG PO2 65 mmHg (85-104); ABG TCO2 34.9 mEq/L (20-26); Blood Gas FiO2 40 %
[2016-12-24] MEDS: Ipratropium/Albuterol Neb 3 ML IH SCH ×3 (11:47→21:28)
[2016-12-24 11:52] LABS: Basophils # 0.1 K/mcL (0.0-0.2); Basophils % 0.3 %; Eosinophils % 0.2 %; Hematocrit 38.4 % (35.3-44.9); Immature Granulocytes % 0.4 % (0-4); Lymphocytes # 1.3 K/mcL (0.6-4.6); Lymphocytes % 7.8 %; Mean Corpuscular HGB Conc 31.3 g/dL (31.6-35.5); Mean Corpuscular Hemoglobin 30.6 pg (28.0-33.3); Mean Platelet Volume 10.4 fL (9.4-12.4); Monocytes # 0.7 K/mcL (0.0-1.3); Monocytes % 4.3 %; Neutrophils # 14.5 K/mcL (1.6-8.9); Platelet Count 271 K/mcL (140-400); Red Blood Count 3.92 M/mcL (3.82-4.97); Red Cell Distribution Width 14.4 % (11.5-14.5)
--- NOTE | 2016-12-24 11:53 | Internal Med History&Physical ---
Date of Encounter: 12/24/16 Time of Encounter: 11:50 Assessment and Plan (1) COPD with acute exacerbation Current visit: Yes Status: Acute Patient has a history of COPD and uses home breathing treatments. She is on home oxygen. She has worsening shortness of breath, cough and change in the color of her sputum and amount of sputum. She was somnolent on arrival to the emergency room and received Narcan with partial resolution of symptoms. Exam reveals diffuse wheezing bilaterally. She is currently on BiPAP support. VBG reveals pH of 7.3. ABG reveals hypoxia and hypercapnia. Patient will be admitted to the hospital for acute exacerbation of COPD to inpatient status. I expect the patient to be in the hospital at least 2 midnights. High-risk due to risk of worsening respiratory failure that may require intubation and mechanical ventilation. Intravenous steroids and by mouth antibiotics. Current BiPAP support for now. Breathing treatments around the clock. (2) Acute on chronic respiratory failure with hypoxia and hypercapnia Current visit: Yes Status: Acute Patient's ABG reveals a PCO2 of 60 and PO2 of 65. Mild respiratory acidosis with a pH of 7.35 on BiPAP. Continue BiPAP support with supplemental oxygen to keep oxygen saturation between 88-92%. Management of COPD exacerbation as above. (3) HTN (hypertension) Current visit: Yes Status: Chronic Control blood pressure. Continue home medications. Qualifiers: Hypertension type: essential hypertension Qualified Code(s): I10 - Essential (primary) hypertension (4) Abdominal pain Current visit: Yes Status: Acute Patient reports abdominal pain over the past week. We will obtain a bladder scan as the patient reports urinary urgency but inability to urinate. We will also obtain a KUB. Patient will be given stool softeners. Further management to depend on the results of imaging. Qualifiers: Abdominal location: generalized Qualified Code(s): R10.84 - Generalized abdominal pain (5) Tobacco abuse Current visit: Yes Status: Chronic Patient counseled regarding smoking cessation. She states that nicotine patch causes itching. She is willing to quit. Will order nicotine gum when necessary. Internal Medicine - H&P: HPI Chief complaint: Shortness of breath Admitted From: Emergency Dept Plans for Post Hospital Care: Home History of present illness: Ms. Dutton is a 61 year old female with a history of COPD on home oxygen who presented to the emergency room via EMS after she was found to have worsening shortness of breath and was found to be somnolent. According to EMS report, she was found to have a saturation of 65% on 2 L of oxygen at home. She was brought to the emergency department and was given Narcan. The patient was placed on BiPAP and an ABG and VBG were obtained in the emergency department. Patient is being admitted for COPD exacerbation and respiratory failure. Patient states that she has had shortness of breath over the past week that has been gradually getting worse. She reports baseline cough with white colored sputum production. However, over the past week, her sputum has changed yellowish and is increased in amount. She has been experiencing worsening shortness of breath which shortness of breath currently present at rest. She also reports palpitations and feeling lightheaded over the past week. She denies any nausea or vomiting. She reports having regular bowel movements with her last bowel movement yesterday morning. However, she reports having abdominal pain over the past week that started in the lower abdomen and is currently diffuse. She reports that her abdominal pain improves with bowel movements and denies any aggravating factors. There is no radiation of the pain. Denies any diarrhea or constipation. No relation of the abdominal pain to food. She reports some wheezing but denies having any chest pain. She denies any swelling in her legs. She reports a 3 pound weight gain recently. She states that she continues to smoke and smokes about 4 cigarettes every day. Past Med Surg Social Fam HX - Past Medical History Attestation: Yes The following information was validated with the patient. Source: patient Medical history: arthritis, asthma, COPD, hyperlipidemia Psychiatric history: anxiety, depression - Past Surgical History Surgical History: hysterectomy, orthopedic, other - Social History Smoking Status: Current every day smoker Smokeless Tobacco Status: No Alcohol use: occasionally Drug use: none Current living situation: Home Activity Level: Independent ambulation - Family History Mother Hx Family Cardiac Disorders: Yes (CHF) Hx Family Respiratory Disorders: Yes Father Hx Family Cardiac Disorders: Yes ([place]) Internal Medicine - H&P: Meds ALPRAZolam [Xanax 0.5 MG Tablet] 0.25 - 0.5 mg PO BID PRN 03/16/16 [History] Atorvastatin Calcium [Lipitor] 20 mg PO HS 03/16/16 [History] Citalopram Hydrobromide [Celexa] 40 mg PO QAM 03/16/16 [History] Cyclobenzaprine [Flexeril] 10 mg PO TID 03/16/16 [History] Metoprolol XL (24 HR) Succ [Toprol Xl] 25 mg PO DAILY 03/16/16 [History] Albuterol Neb [Proventil Neb] 2.5 mg IH TID PRN 10/27/16 [History] Budesonide/Formoterol 160/4.5 [Symbicort 160/4.5] 2 puff IH BIDR 10/27/16 [ History] Gabapentin [Neurontin] 600 mg PO TID 10/27/16 [History] Montelukast [Singulair] 10 mg PO HS 10/27/16 [History] Naloxegol Oxalate [Movantik] 25 mg PO DAILY 10/27/16 [History] Oxycodone HCl/Acetaminophen [Percocet 7.5-325 mg Tablet] 1 each PO TID PRN 10/27 [History] Varenicline Tartrate [Chantix] 1 mg PO Q12H 10/27/16 [History] GuaiFENesin ER [Mucinex] 600 mg PO BID #14 tbbp.12hr 10/29/16 [Rx] levoFLOXacin [Levofloxacin] 750 mg PO DAILY #5 tablet 10/29/16 [Rx] predniSONE [PredniSONE] 10 mg PO DAILY #41 tablet 10/29/16 [Rx] Allergies No Known Allergies Allergy (Unverified 08/12/15 09:10) All Systems PM: A 10-system review of systems was performed and is negative for pertinent findings except as documented above in the HPI. Review of systems: 10 systems have been reviewed and are negative except as mentioned in the history of present illness - Constitutional Vitals: Temp Pulse Resp BP Pulse Ox 97.4 F L 90 14 100/54 94 12/24/16 07:49 12/24/16 11:03 12/24/16 11:49 12/24/16 11:49 12/24/16 11:49 Exam: Gen.: Lying in bed with a BiPAP connected. Mild distress. Eyes: Pupils equal, round and reactive to light. Extraocular muscles intact. ENT: Moist mucous membranes. No oropharyngeal erythema or discharge. Chest: Reduced breath sounds. Bilateral diffuse intermittent wheezing present. CVS: First and second heart sounds present. No murmurs, rubs or gallops. Abdomen: Soft, tenderness to palpation diffusely without any rebound tenderness , guarding or rigidity; mildly distended. Bowel sounds present. Skin: No decubitus ulcers appreciated. HYDRAULIC BLOCKER: No focal neuro deficits present. Psychiatric: Alert, awake and oriented to time, place and person. Lymphatic system: No lymphadenopathy appreciated Internal Med - H&P Results - ABG Interpretation Interpretation: ABG interpreted by me ABG results: 12/24/16 12/24/16 09:49 11:15 ABG pH 7.35 ABG pCO2 60 H ABG pO2 65 L ABG HCO3 33.1 H ABG Total CO2 34.9 H ABG O2 Saturation 91 L ABG Base Excess 5.9 H VBG pH 7.30 L VBG pCO2 71 H VBG pO2 52 H VBG HCO3 34.9 H Interpretation: abnormal (Hypoxia and hypercapnia), respiratory acidosis (Mild) - EKG Data -: EKG Interpreted by Myself EKG shows normal: sinus rhythm, ST-T waves (No ST-T wave changes suggestive of ischemia) Rate: tachycardia - EKG Data Prior EKG available for review: no - Impressions ITS Impressions Chest X-Ray 12/24/16 08:07 IMPRESSION: Patchy airspace disease to the left base may represent atelectasis or evolving infiltrate. Follow-up recommended to ensure resolution. D/ / 12/24/2016 09:30:53 Jude Simpson MD / [email or web address] Interpreting Provider: Jude Simpson MD - Diagnostic Studies Chest x-ray Status: image reviewed by me (Questionable left lower lobe infiltrate versus atelectasis seen)
[2016-12-24 12:01] LABS: BUN/Creatinine Ratio 13 (6-26); Blood Urea Nitrogen 10 mg/dL (7-20); Calcium 9.3 mg/dL (8.6-10.8); Carbon Dioxide 31 mEq/L (19-29); Chloride 98 mEq/L (98-109); Glucose 136 mg/dL (70-99); Osmolality,Calculated 287 (280-300); Potassium 3.8 mEq/L (3.5-4.5); Sodium 138 mEq/L (136-145); eGFR For African Americans > 60 (> 60); eGFR For Non-African Americans > 60 (> 60)
[2016-12-24] MEDS: methylPREDNISolone 40 MG in 0.9 % Sodium Chloride 50 ML IVPB SCH ×2 (14:11→20:58)
[2016-12-24] MEDS: Sennosides/Docusate Sodium TABLET PO SCH ×2 (14:12→21:18)
[2016-12-24] MEDS: Doxycycline 100 MG CAPSULE PO SCH ×2 (14:12→21:18)
[2016-12-24] MEDS ORDERED: ALPRAZolam 0.5 MG TABLET PO PRN (17:21)
[2016-12-24] MEDS: *HR* OxyCODONE/APAP 7.5/325 TABLET PO PRN (18:08)
[2016-12-24] MEDS: *HR* Heparin 5,000 UNIT/ML VIAL SQ SCH (18:11)
[2016-12-24] MEDS: Gabapentin 300 MG CAPSULE PO SCH (21:18)
[2016-12-24] MEDS: ALPRAZolam 0.25 MG TABLET PO PRN (21:19)
[2016-12-24] MEDS: Budesonide/Formoterol 160/4.5 MDI IH SCH (21:28)
[2016-12-25] MEDS: *HR* Heparin 5,000 UNIT/ML VIAL SQ SCH ×3 (00:17→16:17)
[2016-12-25] MEDS: Ipratropium/Albuterol Neb 3 ML IH SCH ×4 (03:30→21:04)
[2016-12-25] MEDS: *HR* OxyCODONE/APAP 7.5/325 TABLET PO PRN ×3 (03:45→20:40)
[2016-12-25 04:02] LABS: Basophils % 0.1 %; Hematocrit 34.3 % (35.3-44.9); Hemoglobin 10.9 g/dL (11.5-15.4); Immature Granulocytes % 0.8 % (0-4); Lymphocytes # 0.9 K/mcL (0.6-4.6); Lymphocytes % 5.3 %; Mean Corpuscular HGB Conc 31.8 g/dL (31.6-35.5); Mean Corpuscular Hemoglobin 30.7 pg (28.0-33.3); Mean Corpuscular Volume 96.6 fL (83.0-100.0); Mean Platelet Volume 9.9 fL (9.4-12.4); Monocytes # 0.5 K/mcL (0.0-1.3); Monocytes % 2.9 %; Neutrophils # 14.9 K/mcL (1.6-8.9); Platelet Count 261 K/mcL (140-400); Red Blood Count 3.55 M/mcL (3.82-4.97); Red Cell Distribution Width 14.3 % (11.5-14.5); Segmented Neutrophils % 90.9 %
[2016-12-25 04:35] LABS: Alanine Aminotransferase 14 Units/L (0-55); Albumin 3.1 g/dL (3.5-5.0); Alkaline Phosphatase 43 Units/L (38-126); Aspartate Amino Transferase 16 Units/L (5-34); BUN/Creatinine Ratio 15 (6-26); Bilirubin,Total 0.3 mg/dL (0.2-1.2); Blood Urea Nitrogen 11 mg/dL (7-20); Calcium 9.1 mg/dL (8.6-10.8); Carbon Dioxide 29 mEq/L (19-29); Chloride 100 mEq/L (98-109); Globulin 3.1 g/dL (2.4-3.5); Glucose 131 mg/dL (70-99); Osmolality,Calculated 283 (280-300); Potassium 4.6 mEq/L (3.5-4.5); Sodium 136 mEq/L (136-145); Total Protein 6.2 g/dL (6.0-8.3); eGFR For African Americans > 60 (> 60); eGFR For Non-African Americans > 60 (> 60)
[2016-12-25] MEDS: Gabapentin 300 MG CAPSULE PO SCH ×3 (08:25→20:41)
[2016-12-25] MEDS: Metoprolol XL (24 HR) Succ 25 MG TAB.ER.24H PO SCH (08:25)
[2016-12-25] MEDS: Sennosides/Docusate Sodium TABLET PO SCH ×2 (08:26→20:40)
[2016-12-25] MEDS: Doxycycline 100 MG CAPSULE PO SCH ×2 (08:26→20:41)
[2016-12-25] MEDS: MethylPREDNISolone 40 MG/ML VIAL IVP SCH ×2 (08:26→20:41)
[2016-12-25] MEDS: Levofloxacin 750 MG/150 ML 750 MG/150 ML BAG IVPB SCH (08:26)
--- NOTE | 2016-12-25 09:36 | Internal Med Progress Note ---
Date of Encounter: 12/25/16 Time of Encounter: 09:33 - Assessment and plan (1) Pneumonia Current Visit: Yes Status: Acute Assessment and plan: Left lower lung suspicious for infiltrates Patient with increasing work of breathing and change in sputum culture on presentation She also has rhonchi on lung exam She has leukocytosis which has not improved since admission Will start her on levofloxacin Obtain sputum culture Check Streptococcal and Legionella Ag Qualifiers: Pneumonia type: due to unspecified organism Laterality: left Lung location: lower lobe of lung Qualified Code(s): J18.1 - Lobar pneumonia, unspecified organism (2) COPD exacerbation Current Visit: Yes Status: Acute Assessment and plan: Patient has a history of COPD and chronic resp failure on home oxygen She has worsening shortness of breath, cough and change in the color of her sputum and amount of sputum. She was somnolent on arrival to the emergency room and received Narcan with partial resolution of symptoms. ABG revealed hypoxia and hypercapnia, she was placed on BIPAP She seems to have slighlty improved this am Continue IV steroids for one more day Change to prednisone po from tmrw am Start levoflox for suspected pneumonia, follow pneumonia work up Continue duonebs (3) Acute on chronic respiratory failure with hypoxia and hypercapnia Current Visit: Yes Status: Acute Assessment and plan: As above, continue O2 (4) HTN (hypertension) Current Visit: Yes Status: Chronic Assessment and plan: Continue home meds Qualifiers: Hypertension type: essential hypertension Qualified Code(s): I10 - Essential (primary) hypertension (5) HLD (hyperlipidemia) Current Visit: Yes Status: Chronic Assessment and plan: Continue Zocor Qualifiers: Qualified Code(s): E78.5 - Hyperlipidemia, unspecified (6) Constipation Current Visit: Yes Status: Chronic Assessment and plan: Possibly secondary to opiate use Continue senna plus Qualifiers: Constipation type: unspecified constipation type Qualified Code(s): K59.00 - Constipation, unspecified - Subjective Interval history: 61 F with PMH of COPD, Chronic respiratory failure on home O2, HTN, Chronic pain on opiates Seen and evaluated at bedside She is admitted and being managed for acute on chronic hypoxic and hypercapneic respiratory failure secondary to COPDE, suspected pneumonia on L lung base Denies new complains - Constitutional Vitals: Temp Pulse Resp BP Pulse Ox 97.4 F L 89 14 105/55 92 05/20/17 06:50 12/25/16 06:50 12/25/16 06:50 12/25/16 06:50 12/25/16 06:50 General appearance: Present: A&O X 3, pleasant, no acute distress - Head Head exam: Present: atraumatic, normocephalic - Eye Eye exam: Present: PERRL, conjuntiva pink, sclera anicteric Pupils: Present: PERRL - Neck Neck exam general surgery: Present: supple, trachea midline. Absent: lymphadenopathy - Respiratory Respiratory exam: Present: rhonchi (Left lung base rhonchi). Absent: accessory muscle use, rales, wheezes, tachypnea - Cardiovascular Cardiovascular exam: Present: RRR, +S1, +S2. Absent: diastolic murmur, gallop, rubs, systolic murmur - GI/Abdominal GI/Abdominal exam: Present: normal bowel sounds, soft, no peritoneal signs. Absent: distended, tenderness - Extremities Exam Extremities exam: Present: warm, radial pulses palpable and symetrical. Absent : calf tenderness, cyanotic, pedal edema - Neurological Exam Neurological exam: Present: alert, CN II-XII intact, oriented X3, no focal deficits. Absent: pronater drift, facial droop, speech deficit - Skin Skin exam: Present: dry, intact Internal Medicine: Result - Labs CBC & Chem 7: 12/25/16 03:35 12/25/16 03:35 Labs: Short CBC 12/25/16 Range/Units 03:35 WBC 16.4 H (4.3-11.1) K/mcL Hgb 10.9 L (11.5-15.4) g/dL Hct 34.3 L (35.3-44.9) % Plt Count 261 (140-400) K/mcL Neutrophils # 14.9 H (1.6-8.9) K/mcL BMP 12/25/16 03:35 Sodium 136 Potassium 4.6 H Chloride 100 Carbon Dioxide 29 BUN 11 Creatinine 0.73 Glucose 131 H Calcium 9.1 Liver Function 12/25/16 Range/Units 03:35 Total Bilirubin 0.3 (0.2-1.2) mg/dL AST 16 (5-34) Units/L ALT 14 (0-55) Units/L Alkaline Phosphatase 43 (38-126) Units/L Albumin 3.1 L (3.5-5.0) g/dL - ABG Interpretation ABG results: ABG ABG pH 7.35 pH Units (7.32-7.45) 12/24/16 11:15 ABG pCO2 60 mmHg (35-45) H 12/24/16 11:15 ABG pO2 65 mmHg (85-104) L 12/24/16 11:15 ABG O2 Saturation 91 % (95-98) L 12/24/16 11:15 Consult Discharge Plan - Plan Referrals: Francois Daly MD [Primary Care Provider] - 01/04/17 2:00 pm
[2016-12-25] MEDS: Budesonide/Formoterol 160/4.5 MDI IH SCH ×2 (10:55→21:04)
[2016-12-25] MEDS: ALPRAZolam 0.25 MG TABLET PO PRN (22:23)
[2016-12-26] MEDS: *HR* Heparin 5,000 UNIT/ML VIAL SQ SCH ×4 (00:47→23:49)
[2016-12-26 04:01] LABS: Basophils % 0.1 %; Hematocrit 35.6 % (35.3-44.9); Hemoglobin 11.3 g/dL (11.5-15.4); Immature Granulocytes % 0.9 % (0-4); Lymphocytes # 1.1 K/mcL (0.6-4.6); Lymphocytes % 5.9 %; Mean Corpuscular HGB Conc 31.7 g/dL (31.6-35.5); Mean Corpuscular Volume 97.5 fL (83.0-100.0); Mean Platelet Volume 10.3 fL (9.4-12.4); Monocytes # 0.7 K/mcL (0.0-1.3); Monocytes % 3.6 %; Platelet Count 311 K/mcL (140-400); Red Blood Count 3.65 M/mcL (3.82-4.97); Red Cell Distribution Width 14.6 % (11.5-14.5); Segmented Neutrophils % 89.5 %
[2016-12-26 04:13] LABS: BUN/Creatinine Ratio 22 (6-26); Blood Urea Nitrogen 18 mg/dL (7-20); Calcium 9.2 mg/dL (8.6-10.8); Carbon Dioxide 29 mEq/L (19-29); Chloride 101 mEq/L (98-109); Glucose 142 mg/dL (70-99); Osmolality,Calculated 292 (280-300); Potassium 4.4 mEq/L (3.5-4.5); Sodium 139 mEq/L (136-145); eGFR For African Americans > 60 (> 60); eGFR For Non-African Americans > 60 (> 60)
[2016-12-26] MEDS: Ipratropium/Albuterol Neb 3 ML IH SCH ×4 (04:50→21:10)
[2016-12-26] MEDS: Sennosides/Docusate Sodium TABLET PO SCH ×2 (08:06→20:23)
[2016-12-26] MEDS: Gabapentin 300 MG CAPSULE PO SCH ×3 (08:06→20:24)
[2016-12-26] MEDS: Doxycycline 100 MG CAPSULE PO SCH ×2 (08:06→20:23)
[2016-12-26] MEDS: Metoprolol XL (24 HR) Succ 25 MG TAB.ER.24H PO SCH (08:06)
[2016-12-26] MEDS: Levofloxacin 750 MG/150 ML 750 MG/150 ML BAG IVPB SCH (08:07)
[2016-12-26] MEDS ORDERED: predniSONE 20 MG TABLET PO SCH (09:00)
--- NOTE | 2016-12-26 09:27 | Internal Med Progress Note ---
Date of Encounter: 12/26/16 Time of Encounter: 09:25 - Assessment and plan (1) Pneumonia Current Visit: Yes Status: Acute Assessment and plan: Left lower lung suspicious for infiltrates Patient with increasing work of breathing and change in sputum culture on presentation She also has rhonchi on lung exam She has leukocytosis which has not improved since admission Sputum culture negative Continue levoflox Worsening leukocytosis possibly from steroids, patient reports clinical improvement, will monitor Qualifiers: Pneumonia type: due to unspecified organism Laterality: left Lung location: lower lobe of lung Qualified Code(s): J18.1 - Lobar pneumonia, unspecified organism (2) COPD exacerbation Current Visit: Yes Status: Acute Assessment and plan: Patient has a history of COPD and chronic resp failure on home oxygen She has worsening shortness of breath, cough and change in the color of her sputum and amount of sputum. She was somnolent on arrival to the emergency room and received Narcan with partial resolution of symptoms. ABG revealed hypoxia and hypercapnia, she was placed on BIPAP She seems to have slighlty improved this am Continue duonebs, prednisone, levoflox (3) Acute on chronic respiratory failure with hypoxia and hypercapnia Current Visit: Yes Status: Acute Assessment and plan: As above, continue O2 (4) HTN (hypertension) Current Visit: Yes Status: Chronic Assessment and plan: Continue home meds Qualifiers: Hypertension type: essential hypertension Qualified Code(s): I10 - Essential (primary) hypertension (5) HLD (hyperlipidemia) Current Visit: Yes Status: Chronic Assessment and plan: Continue Zocor Qualifiers: Hyperlipidemia type: unspecified Qualified Code(s): E78.5 - Hyperlipidemia , unspecified (6) Constipation Current Visit: Yes Status: Chronic Assessment and plan: Possibly secondary to opiate use Continue senna plus Qualifiers: Constipation type: unspecified constipation type Qualified Code(s): K59.00 - Constipation, unspecified (7) Leukocytosis Current Visit: Yes Status: Acute Assessment and plan: Possibly from use of steroids COntinue to monitor Qualifiers: Leukocytosis type: unspecified Qualified Code(s): D72.829 - Elevated white blood cell count, unspecified - Subjective Interval history: 61 F with PMH of COPD, Chronic respiratory failure on home O2, HTN, Chronic pain on opiates Seen and evaluated at bedside She is admitted and being managed for acute on chronic hypoxic and hypercapneic respiratory failure secondary to COPDE, suspected pneumonia on L lung base Denies new complains She is moving her bowels now leukocytosis slightly worse, possibly from steroids - Constitutional Vitals: Temp Pulse Resp BP Pulse Ox 98.2 F 87 16 119/78 96 12/26/16 06:37 12/26/16 06:37 12/26/16 06:37 12/26/16 06:37 12/26/16 06:37 General appearance: Present: A&O X 3, pleasant, no acute distress - Head Head exam: Present: atraumatic, normocephalic - Eye Eye exam: Present: PERRL, conjuntiva pink, sclera anicteric Pupils: Present: PERRL - Neck Neck exam general surgery: Present: supple, trachea midline. Absent: lymphadenopathy - Respiratory Respiratory exam: Present: rhonchi (LL base). Absent: accessory muscle use, rales, wheezes - Cardiovascular Cardiovascular exam: Present: RRR, +S1, +S2. Absent: diastolic murmur, gallop, rubs, systolic murmur - GI/Abdominal GI/Abdominal exam: Present: normal bowel sounds, soft, no peritoneal signs. Absent: distended, tenderness - Extremities Exam Extremities exam: Present: warm, radial pulses palpable and symetrical. Absent : calf tenderness, cyanotic, pedal edema - Neurological Exam Neurological exam: Present: alert, CN II-XII intact, oriented X3, no focal deficits. Absent: pronater drift, facial droop, speech deficit - Skin Skin exam: Present: dry, intact Internal Medicine: Result - Labs CBC & Chem 7: 12/26/16 03:40 12/26/16 03:40 Labs: Short CBC 12/26/16 Range/Units 03:40 WBC 17.9 H (4.3-11.1) K/mcL Hgb 11.3 L (11.5-15.4) g/dL Hct 35.6 (35.3-44.9) % Plt Count 311 (140-400) K/mcL Neutrophils # 16.0 H (1.6-8.9) K/mcL BMP 12/26/16 03:40 Sodium 139 Potassium 4.4 Chloride 101 Carbon Dioxide 29 BUN 18 Creatinine 0.83 Glucose 142 H Calcium 9.2 - ABG Interpretation ABG results: ABG ABG pH 7.35 pH Units (7.32-7.45) 12/24/16 11:15 ABG pCO2 60 mmHg (35-45) H 12/24/16 11:15 ABG pO2 65 mmHg (85-104) L 12/24/16 11:15 ABG O2 Saturation 91 % (95-98) L 12/24/16 11:15 Consult Discharge Plan - Plan Referrals: Francois Daly MD [Primary Care Provider] - 01/04/17 2:00 pm
[2016-12-26] MEDS: Budesonide/Formoterol 160/4.5 MDI IH SCH ×2 (10:46→21:10)
[2016-12-26] MEDS: *HR* OxyCODONE/APAP 7.5/325 TABLET PO PRN ×2 (12:28→20:24)
[2016-12-26] MEDS: ALPRAZolam 0.25 MG TABLET PO PRN (20:23)
[2016-12-27] MEDS: Ipratropium/Albuterol Neb 3 ML IH SCH (03:44)
[2016-12-27 05:13] LABS: Basophils % 0.1 %; Hematocrit 35.1 % (35.3-44.9); Hemoglobin 11.3 g/dL (11.5-15.4); Immature Granulocytes % 1.3 % (0-4); Lymphocytes # 2.9 K/mcL (0.6-4.6); Lymphocytes % 19.1 %; Mean Corpuscular HGB Conc 32.2 g/dL (31.6-35.5); Mean Corpuscular Hemoglobin 31.1 pg (28.0-33.3); Mean Corpuscular Volume 96.7 fL (83.0-100.0); Mean Platelet Volume 10.3 fL (9.4-12.4); Monocytes # 1.3 K/mcL (0.0-1.3); Monocytes % 8.4 %; Neutrophils # 10.6 K/mcL (1.6-8.9); Platelet Count 303 K/mcL (140-400); Red Blood Count 3.63 M/mcL (3.82-4.97); Red Cell Distribution Width 14.6 % (11.5-14.5); Segmented Neutrophils % 71.1 %
[2016-12-27 07:54] VITALS: BP 160/99
--- NOTE | 2016-12-27 10:23 | Discharge Summary ---
Date of Encounter: 12/27/16 Time of Encounter: 10:17 - Discharge Diagnosis (1) Pneumonia Priority: Primary Status: Acute Qualifiers: Pneumonia type: due to unspecified organism Laterality: left Lung location: lower lobe of lung Qualified Code(s): J18.1 - Lobar pneumonia, unspecified organism (2) COPD exacerbation Priority: Primary Status: Acute (3) Acute on chronic respiratory failure with hypoxia and hypercapnia Priority: Primary Status: Acute (4) HTN (hypertension) Priority: Secondary Status: Chronic Qualifiers: Hypertension type: essential hypertension Qualified Code(s): I10 - Essential (primary) hypertension (5) HLD (hyperlipidemia) Priority: Secondary Status: Chronic Qualifiers: Hyperlipidemia type: unspecified Qualified Code(s): E78.5 - Hyperlipidemia , unspecified (6) Constipation Priority: Secondary Status: Chronic Qualifiers: Constipation type: unspecified constipation type Qualified Code(s): K59.00 - Constipation, unspecified (7) Leukocytosis Priority: Primary Status: Acute Qualifiers: Leukocytosis type: unspecified Qualified Code(s): D72.829 - Elevated white blood cell count, unspecified - Discharge Medications Prescriptions: levoFLOXacin [Levofloxacin] 750 mg PO DAILY #3 tablet predniSONE [PredniSONE] 40 mg PO DAILY #6 tablet Home Medications: ALPRAZolam [Xanax 0.5 MG Tablet] 0.25 - 0.5 mg PO BID PRN 03/16/16 [History] Atorvastatin Calcium [Lipitor] 20 mg PO HS 03/16/16 [History] Citalopram Hydrobromide [Celexa] 40 mg PO QAM 03/16/16 [History] Cyclobenzaprine [Flexeril] 10 mg PO TID 03/16/16 [History] Metoprolol XL (24 HR) Succ [Toprol Xl] 25 mg PO DAILY 03/16/16 [History] Albuterol Neb [Proventil Neb] 2.5 mg IH TID PRN 10/27/16 [History] Budesonide/Formoterol 160/4.5 [Symbicort 160/4.5] 2 puff IH BIDR 10/27/16 [ History] Gabapentin [Neurontin] 600 mg PO TID 10/27/16 [History] Montelukast [Singulair] 10 mg PO HS 10/27/16 [History] Naloxegol Oxalate [Movantik] 25 mg PO DAILY 10/27/16 [History] Oxycodone HCl/Acetaminophen [Percocet 7.5-325 mg Tablet] 1 each PO TID PRN 10/27 [History] Varenicline Tartrate [Chantix] 1 mg PO Q12H 10/27/16 [History] Albuterol Sulfate [Proair Hfa] 2 puff IH Q4-6H PRN 12/24/16 [History] Tiotropium [Spiriva] 1 cap IH DAILY 12/24/16 [History] levoFLOXacin [Levofloxacin] 750 mg PO DAILY #3 tablet 12/27/16 [Rx] predniSONE [PredniSONE] 40 mg PO DAILY #6 tablet 12/27/16 [Rx] Allergies/Adverse Reactions: Allergies No Known Allergies Allergy (Verified 12/24/16 13:53) Date of admission: 12/24/16 12:18 Primary care physician: Francois Daly MD Discharging clinician: Reji Farley Anticipated date of discharge: 12/27/16 - Patient Status Disposition: Home, Self-Care Condition: Fair Functional capacity at discharge: independent ambulation Overall status at discharge: patient is back to baseline - Discharge Instructions Follow Up With: Francois Daly MD [Primary Care Provider] - 01/04/17 2:00 pm - Diet and Activity Activity: resume usual activities as tolerated, wear oxygen at night Diet: low salt diet Interval History: See below Hospital course: Ms. Dutton is a 61 year old female with PMH of chronic pain, COPD, HTN, Tobacco abuse, chronic resp failure on home O2 patient was admitted and managed for altered mental status, Acute on chronic respiratory failure secondary to COPD exacerbation and LLL pnuemonia She was managed with IV antibiotics, Steroids, nebs and BiPAP She has made remarkable improvement and has not required oxygen supplementation during the day Sputum culture was negative, CBC on admission with leukocytosis, CXR with LLL infiltrate. ABG with hypoxia and hypercapnea. Patient denies using excess of her pain medications. patient has been clinically stable for the past 24 hrs Incidental worsening leukocytosis secodnary to steroids, this has improved with changing IV steroids to po Patient is discharged on 3 more days of Levofloxacin, Prednsione Continue home spiriva and symbicort Follow up with PCP Plan of care discussed, verbalized understanding Spent 3 minutes on tobacco cessation counselling, verbalizes understanding, has chantix at home Time spent discussing smoking cessation with patient: 3 to 10 minutes (3 minutes spent on tobacco cessation counselling) - Time Spent with Patient Total time spent providing and/or coordinating discharge services: Less than 30 minutes - Constitutional Vitals: Temp Pulse Resp BP Pulse Ox 97.9 F 90 16 160/99 95 12/27/16 07:50 12/27/16 07:50 12/27/16 07:50 12/27/16 07:50 12/27/16 08:15 General appearance: Present: A&O X 3, pleasant, no acute distress - Head Head exam: Present: atraumatic, normocephalic - Eye Eye exam: Present: PERRL, conjuntiva pink, sclera anicteric Pupils: Present: PERRL - Neck Neck exam general surgery: Present: supple, trachea midline. Absent: lymphadenopathy - Respiratory Respiratory exam: Present: CTAB. Absent: accessory muscle use, rales, rhonchi, wheezes - Cardiovascular Cardiovascular exam: Present: RRR, +S1, +S2. Absent: diastolic murmur, gallop, rubs, systolic murmur - GI/Abdominal GI/Abdominal exam: Present: normal bowel sounds, soft, no peritoneal signs. Absent: distended, tenderness - Extremities Exam Extremities exam: Present: warm, radial pulses palpable and symetrical. Absent : calf tenderness, cyanotic, pedal edema - Neurological Exam Neurological exam: Present: alert, CN II-XII intact, oriented X3, no focal deficits. Absent: pronater drift, facial droop, speech deficit - Skin Skin exam: Present: dry, intact
--- NOTE | 2016-12-27 16:36 | Electrocardiograph Report ---
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
== END 2016-12-27 10:14 | disposition home or self-care (01) | DRG 189 ==
LOC: 3ANU 07:46 → EMEROO 07:46 → 3ANU 13:06
PROVIDERS: ADMIT Internal Medicine Sleep Medicine; ATTEND Internal Medicine

== ENCOUNTER 2017-01-03 19:13 | Inpatient (IN) ==
[2017-01-03] MEDS ORDERED: Ipratropium/Albuterol Neb 3 ML IH ONE (19:22)
[2017-01-03] MEDS ORDERED: methylPREDNISolone 125 MG/2 ML VIAL IVP ONE (19:23)
[2017-01-03] MEDS ORDERED: Acetaminophen 650 MG RECTAL SUPP RC ONE (19:24)
[2017-01-03] MEDS ORDERED: Piperacillin/Tazobactam 4.5 GM in D5% in Water (Mini-Bag+) 100 ML IVPB ONE (19:26)
--- NOTE | 2017-01-03 19:27 | Emergency Department Note ---
Disposition Clinical Impression: Hypoxia Pneumonia Qualifiers: Pneumonia type: due to unspecified organism Laterality: unspecified laterality Lung location: unspecified part of lung Qualified Code(s): J18.9 - Pneumonia, unspecified organism Sepsis Qualifiers: Sepsis type: sepsis due to unspecified organism Qualified Code(s): A41.9 - Sepsis, unspecified organism Altered mental status Qualifiers: Altered mental status type: unspecified Qualified Code(s): R41.82 - Altered mental status, unspecified Disposition: Admitted As Inpatient Condition: Fair Referrals: NO,PCP [Non-Partnered Physician] - Forms: ED Satisfaction Letter SOB HPI - General Chief Complaint: ED Shortness of Breath/Dyspnea Stated Complaint: SOB Source: patient Mode of arrival: EMS Limitations: no limitations Nursing Notes Reviewed: Yes Vital Signs Reviewed: Yes - History of Present Illness 61-year-old female with a significant history of COPD on home oxygen therapy as well as home steroids. Patient presents via EMS due to concerns of confusion and hypoxia. EMS reports that the patient was hypoxic with oxygen saturations 65-70%. Patient is typically on 2 L nasal cannula. EMS also reported the patient was hypotensive upon arrival with systolic pressure in the 70s. Patient received IV fluid hydration with improvement in blood pressure. Patient also received 2 neb treatments in route. Patient is a poor historian and does not provide a very accurate history. Patient's family at bedside also notes that the patient is an noncurrent smoker. Patient denies any abdominal pain. No nausea or vomiting. No chest pain. Patient does note a cough. Patient's history was reviewed in [facility]. Patient was recently admitted for altered mental status, pneumonia. Patient was discharged on the of this month. Patient has been culture which grew Pseudomonas. - Related Data Home Medications Medication Instructions Recorded Confirmed ALPRAZolam [Xanax 0.5 MG Tablet] 0.25 - 0.5 mg PO BID PRN 03/16/16 12/24/16 Atorvastatin Calcium [Lipitor] 20 mg PO HS 03/16/16 12/24/16 Citalopram Hydrobromide [Celexa] 40 mg PO QAM 03/16/16 12/24/16 Cyclobenzaprine [Flexeril] 10 mg PO TID 03/16/16 12/24/16 Metoprolol XL (24 HR) Succ [Toprol 25 mg PO DAILY 03/16/16 12/24/16 Xl] Albuterol Neb [Proventil Neb] 2.5 mg IH TID PRN 10/27/16 12/24/16 Budesonide/Formoterol 160/4.5 2 puff IH BIDR 10/27/16 12/24/16 [Symbicort 160/4.5] Gabapentin [Neurontin] 600 mg PO TID 10/27/16 12/24/16 Montelukast [Singulair] 10 mg PO HS 10/27/16 12/24/16 Naloxegol Oxalate [Movantik] 25 mg PO DAILY 10/27/16 12/24/16 Oxycodone HCl/Acetaminophen 1 each PO TID PRN 10/27/16 12/24/16 [Percocet 7.5-325 mg Tablet] Varenicline Tartrate [Chantix] 1 mg PO Q12H 10/27/16 12/24/16 Albuterol Sulfate [Proair Hfa] 2 puff IH Q4-6H PRN 12/24/16 12/24/16 Tiotropium [Spiriva] 1 cap IH DAILY 12/24/16 12/24/16 Previous Rx's Medication Instructions Recorded levoFLOXacin [Levofloxacin] 750 mg PO DAILY #3 tablet 12/27/16 predniSONE [PredniSONE] 40 mg PO DAILY #6 tablet 12/27/16 Allergies Allergy/AdvReac Type Severity Reaction Status Date / Time No Known Allergies Allergy Verified 12/24/16 13:53 Limitations: ROS unobtainable due to patients medical condition Past Medical History - Past Medical History Medical history: Reports: arthritis, asthma, COPD, hyperlipidemia, hypertension , other Surgical history: Reports: hysterectomy, orthopedic, other Psychiatric history: Reports: anxiety, depression - Social History Smoking Status: Former smoker Smokeless Tobacco Status: No Alcohol use: Reports: occasionally Drug use: Reports: unknown Physical Exam - General Limitations: no limitations General appearance: alert, in distress - Head Head exam: atraumatic, normocephalic, normal inspection - Eye Eye exam: Present: normal appearance, PERRL, EOMI. Absent: scleral icterus - ENT ENT exam: normal exam, mucous membranes dry - Neck Neck exam: Present: normal inspection, trachea midline - Chest Chest inspection: Present: normal inspection, symmetric chest wall rise - Respiratory Respiratory exam: Present: respiratory distress, accessory muscle use, prolonged expiratory phase, other (Scattered rhonchi with diffuse expiratory wheeze) - Cardiovascular Cardiovascular exam: Present: normal rhythm, tachycardia - Abdominal Exam Abdominal exam: Present: soft, Non-Tender. Absent: guarding, rebound - Extremities Exam Extremities exam: Present: normal inspection. Absent: pedal edema - Back Exam Back exam: Present: normal inspection. Absent: CVA tenderness (R), CVA tenderness (L) - Neurological Exam Neurological exam: Present: alert, CN II-XII intact, other (Patient is alert to person, place. Patient is slow to respond.) - Skin Skin exam: Present: warm, dry, intact, normal color Course Course Narrative: Patient seen and examined. Patient does meet SIRS criteria with tachycardia and temperature. Source is likely in the lungs. Patient will get the sepsis order set. Patient received IV fluid in route. Patient will get supplemented with continued IV fluid hydration. Lab work, EKG, chest x-ray. Respiratory a bedside is provided positive pressure ventilation as well as aerosols and steroids. Patient states that if her breathing does not improve she is aware that she may need to be intubated. However will try to avoid this with aggressive respiratory measures early on. Patient's history was reviewed and she had left lower lobe pneumonia received Levaquin for Pseudomonas. Patient was discharged with Levaquin. Given this information the patient was prophylactically started on Zosyn for presumed pneumonia. - Reevaluation(s) Reevaluation #1: patient seen and examined. Patient appears patient's blood pressures responded to IV fluids. Patient's oxygen saturation is improved after positive pressure. Awaiting head CT. Patient's labs reviewed. Patient does have a leukocytosis. Likely combination of recent steroid use as well as worsening infection. Patient's lactate was normal. Patients receiving 2 L normal saline plus the IV fluids plus what the patient received an route meets the 30 cc/kg. plan of care was discussed with the patient as well as the patient's family at bedside. Time: 20:37 Reevaluation #2: Patient returned from CAT scan. Paged hospitalist for admission. Patient does not need intubation at this time. Patient's resting M BiPAP. No increased work of breathing. Time: 21:02 Reevaluation #3: Spoke with hospitalist for admission. Hospitalist states they will come down to evaluate the patient. Time: 21:18 Vital Signs Temperature 100.9 F H 01/03/17 19:16 Pulse Rate 118 01/03/17 19:16 Respiratory Rate 24 01/03/17 19:16 Blood Pressure 119/32 01/03/17 19:16 O2 Sat by Pulse Oximetry 85 01/03/17 19:16 Temperature 100.9 F H 01/03/17 19:16 Pulse Rate 103 01/03/17 21:04 Respiratory Rate 24 01/03/17 21:04 Blood Pressure 104/90 01/03/17 21:04 O2 Sat by Pulse Oximetry 92 01/03/17 21:04 Oxygen Delivery Oxygen Delivery Bipap Shortness of Breath/Dyspnea - MDM Narrative Medical decision making narrative: 61-year-old female history of COPD presents for violation of altered mental status, hypoxia. EMS reported the patient was hypoxic with oxygen saturation 60s 70%. Patients typically on 2 L nasal cannula. Patient was hypoxic with her normal home oxygen. Patient was placed on BiPAP initially upon arrival to the ED. Patient is also noted be hypotensive with blood pressure in the 70s. Patient's blood pressure has responded to fluids. Patient vitals and clinical exam did trigger sepsis with likely source in the lungs. Patient's records reviewed and was on Levaquin the past which grew Pseudomonas. Patient was started on Vanco and Zosyn preemptively. Patient's chest x-ray shows worsening left lower lobe pneumonia. Patient received IV fluids in route via EMS as well as 2 L of normal saline ordered from the ER. Patient's labwork reviewed shows that she is acidotic with a respiratory component. PCO2 of 68. Bicarbonate was also elevated likely secondary to compensation. Patient's lactate was normal. Patient's urine does show no signs of infection. Patient's abdominal exam was benign and not warranting any imaging in the emergency department. Patient did have a history of a fall and was a poor historian on exam and based on the patient's mental status a CT of the head was warranted and obtained. Family as well as the patient has been updated throughout the ED course. Patient's aware that she is going to be admitted for pneumonia receiving IV antibiotics. CODE STATUS was discussed and the patient states that she would like intubation for respiratory status were to decline. - Lab Data Lab results reviewed: Yes I reviewed the patient's lab results. Result diagrams: 01/03/17 19:49 01/03/17 19:49 Lab Results 01/03/17 01/03/17 01/03/17 Range/Units 19:49 19:49 19:49 WBC 16.0 H (4.3-11.1) K/mcL RBC 4.06 (3.82-4.97) M/mcL Hgb 12.4 (11.5-15.4) g/dL Hct 39.8 (35.3-44.9) % MCV 98.0 (83.0-100.0) fL MCH 30.5 (28.0-33.3) pg MCHC 31.2 L (31.6-35.5) g/dL RDW 14.3 (11.5-14.5) % Plt Count 267 (140-400) K/mcL MPV 9.0 L (9.4-12.4) fL Immature Gran % 0.8 (0-4) % Seg Neutrophils % 84.0 % Lymphocytes % 10.8 % Monocytes % 3.7 % Eosinophils % 0.5 % Basophils % 0.2 % Neutrophils # 13.4 H (1.6-8.9) K/mcL Lymphocytes # 1.7 (0.6-4.6) K/mcL Monocytes # 0.6 (0.0-1.3) K/mcL Eosinophils # 0.1 (0.0-0.6) K/mcL Basophils # 0.0 (0.0-0.2) K/mcL Immature Plt Fraction 2.3 (1.1-6.1) % PT 11.8 (9.4-12.1) Seconds INR 1.1 APTT 25.4 L (26.0-36.0) Seconds ABG pH (7.32-7.45) pH Units ABG pCO2 (35-45) mmHg ABG pO2 (85-104) mmHg ABG HCO3 (21-27) mEQ/L ABG Total CO2 (20-26) mEq/L ABG O2 Saturation (95-98) % ABG Base Excess (-2.0 to 3.0) mEq/L Blood Gas Modality Inspired O2 % Sodium 135 L (136-145) mEq/L Potassium 4.1 (3.5-4.5) mEq/L Chloride 101 (98-109) mEq/L Carbon Dioxide 24 (19-29) mEq/L BUN 16 (7-20) mg/dL Creatinine 0.85 (0.57-1.11) mg/dL Est GFR ( Amer) > 60 (> 60) Est GFR (Non-Af Amer) > 60 (> 60) BUN/Creatinine Ratio 19 (6-26) Glucose 78 (70-99) mg/dL Calculated Osmolality 280 (280-300) Lactic Acid (0.5-2.2) mmol/L Calcium 8.6 (8.6-10.8) mg/dL Phosphorus 4.0 (2.3-4.7) mg/dL Magnesium 1.6 (1.6-2.6) mg/dL Total Bilirubin 0.6 (0.2-1.2) mg/dL Direct Bilirubin 0.3 (0.0-0.5) mg/dL Indirect Bilirubin 0.3 (0.0-1.2) mg/dL AST 26 (5-34) Units/L ALT 23 (0-55) Units/L Alkaline Phosphatase 44 (38-126) Units/L Troponin I (0-0.03) ng/mL Serum Total Protein 5.9 L (6.0-8.3) g/dL Albumin 3.1 L (3.5-5.0) g/dL Globulin 2.8 (2.4-3.5) g/dL Albumin/Globulin Ratio 1.1 (1.1-2.2) Urine Color (Yellow) Urine Clarity (Clear) Urine pH (5.0-8.0) pH Units Ur Specific [place] (1.010-1.025) Urine Protein (Neg-Trace) mg/dL Urine Glucose (UA) (Normal) mg/dL Urine Ketones (Negative) mg/dL Urine Blood (Negative) Urine Nitrite (Negative) Urine Bilirubin (Negative) Urine Urobilinogen (Normal) mg/dL Ur Leukocyte Esterase (Negative) Ur Culture Indicated? (NO) 01/03/17 01/03/17 01/03/17 Range/Units 19:49 19:49 19:50 WBC (4.3-11.1) K/mcL RBC (3.82-4.97) M/mcL Hgb (11.5-15.4) g/dL Hct (35.3-44.9) % MCV (83.0-100.0) fL MCH (28.0-33.3) pg MCHC (31.6-35.5) g/dL RDW (11.5-14.5) % Plt Count (140-400) K/mcL MPV (9.4-12.4) fL Immature Gran % (0-4) % Seg Neutrophils % % Lymphocytes % % Monocytes % % Eosinophils % % Basophils % % Neutrophils # (1.6-8.9) K/mcL Lymphocytes # (0.6-4.6) K/mcL Monocytes # (0.0-1.3) K/mcL Eosinophils # (0.0-0.6) K/mcL Basophils # (0.0-0.2) K/mcL Immature Plt Fraction (1.1-6.1) % PT (9.4-12.1) Seconds INR APTT (26.0-36.0) Seconds ABG pH 7.27 L (7.32-7.45) pH Units ABG pCO2 68 H (35-45) mmHg ABG pO2 52 L (85-104) mmHg ABG HCO3 31.2 H (21-27) mEQ/L ABG Total CO2 33.3 H (20-26) mEq/L ABG O2 Saturation 81 L (95-98) % ABG Base Excess 2.4 (-2.0 to 3.0) mEq/L Blood Gas Modality [place] Inspired O2 32 % Sodium (136-145) mEq/L Potassium (3.5-4.5) mEq/L Chloride (98-109) mEq/L Carbon Dioxide (19-29) mEq/L BUN (7-20) mg/dL Creatinine (0.57-1.11) mg/dL Est GFR ( Amer) (> 60) Est GFR (Non-Af Amer) (> 60) BUN/Creatinine Ratio (6-26) Glucose (70-99) mg/dL Calculated Osmolality (280-300) Lactic Acid 1.3 (0.5-2.2) mmol/L Calcium (8.6-10.8) mg/dL Phosphorus (2.3-4.7) mg/dL Magnesium (1.6-2.6) mg/dL Total Bilirubin (0.2-1.2) mg/dL Direct Bilirubin (0.0-0.5) mg/dL Indirect Bilirubin (0.0-1.2) mg/dL AST (5-34) Units/L ALT (0-55) Units/L Alkaline Phosphatase (38-126) Units/L Troponin I 0.00 (0-0.03) ng/mL Serum Total Protein (6.0-8.3) g/dL Albumin (3.5-5.0) g/dL Globulin (2.4-3.5) g/dL Albumin/Globulin Ratio (1.1-2.2) Urine Color (Yellow) Urine Clarity (Clear) Urine pH (5.0-8.0) pH Units Ur Specific [place] (1.010-1.025) Urine Protein (Neg-Trace) mg/dL Urine Glucose (UA) (Normal) mg/dL Urine Ketones (Negative) mg/dL Urine Blood (Negative) Urine Nitrite (Negative) Urine Bilirubin (Negative) Urine Urobilinogen (Normal) mg/dL Ur Leukocyte Esterase (Negative) Ur Culture Indicated? (NO) 01/03/17 Range/Units 20:30 WBC (4.3-11.1) K/mcL RBC (3.82-4.97) M/mcL Hgb (11.5-15.4) g/dL Hct (35.3-44.9) % MCV (83.0-100.0) fL MCH (28.0-33.3) pg MCHC (31.6-35.5) g/dL RDW (11.5-14.5) % Plt Count (140-400) K/mcL MPV (9.4-12.4) fL Immature Gran % (0-4) % Seg Neutrophils % % Lymphocytes % % Monocytes % % Eosinophils % % Basophils % % Neutrophils # (1.6-8.9) K/mcL Lymphocytes # (0.6-4.6) K/mcL Monocytes # (0.0-1.3) K/mcL Eosinophils # (0.0-0.6) K/mcL Basophils # (0.0-0.2) K/mcL Immature Plt Fraction (1.1-6.1) % PT (9.4-12.1) Seconds INR APTT (26.0-36.0) Seconds ABG pH (7.32-7.45) pH Units ABG pCO2 (35-45) mmHg ABG pO2 (85-104) mmHg ABG HCO3 (21-27) mEQ/L ABG Total CO2 (20-26) mEq/L ABG O2 Saturation (95-98) % ABG Base Excess (-2.0 to 3.0) mEq/L Blood Gas Modality Inspired O2 % Sodium (136-145) mEq/L Potassium (3.5-4.5) mEq/L Chloride (98-109) mEq/L Carbon Dioxide (19-29) mEq/L BUN (7-20) mg/dL Creatinine (0.57-1.11) mg/dL Est GFR ( Amer) (> 60) Est GFR (Non-Af Amer) (> 60) BUN/Creatinine Ratio (6-26) Glucose (70-99) mg/dL Calculated Osmolality (280-300) Lactic Acid (0.5-2.2) mmol/L Calcium (8.6-10.8) mg/dL Phosphorus (2.3-4.7) mg/dL Magnesium (1.6-2.6) mg/dL Total Bilirubin (0.2-1.2) mg/dL Direct Bilirubin (0.0-0.5) mg/dL Indirect Bilirubin (0.0-1.2) mg/dL AST (5-34) Units/L ALT (0-55) Units/L Alkaline Phosphatase (38-126) Units/L Troponin I (0-0.03) ng/mL Serum Total Protein (6.0-8.3) g/dL Albumin (3.5-5.0) g/dL Globulin (2.4-3.5) g/dL Albumin/Globulin Ratio (1.1-2.2) Urine Color Yellow (Yellow) Urine Clarity Clear (Clear) Urine pH 6.0 (5.0-8.0) pH Units Ur Specific [place] 1.013 (1.010-1.025) Urine Protein Negative (Neg-Trace) mg/dL Urine Glucose (UA) Normal (Normal) mg/dL Urine Ketones Negative (Negative) mg/dL Urine Blood Negative (Negative) Urine Nitrite Negative (Negative) Urine Bilirubin Negative (Negative) Urine Urobilinogen Normal (Normal) mg/dL Ur Leukocyte Esterase Negative (Negative) Ur Culture Indicated? NO (NO) - Radiology Data Radiology results reviewed: Yes I reviewed the patient's radiology results. Chest X-Ray 01/03/17 19:22 IMPRESSION: Marked worsening in the appearance of the chest. Very large left lung pneumonia. Moderate to large right lung pneumonia. Moderate underlying emphysematous changes. D/ / Placido Farrell MD / Placido Farrell MD Interpreting Provider: Placido Farrell MD Chest X-Ray 01/03/17 19:22 IMPRESSION: Marked worsening in the appearance of the chest. Very large left lung pneumonia. Moderate to large right lung pneumonia. Moderate underlying emphysematous changes. D/ / Placido Farrell MD / Placido Farrell MD Interpreting Provider: Placido Farrell MD - EKG Data EKG attestation: Yes I reviewed and interpreted this EKG. EKG shows normal: Reports: sinus rhythm Rate: Reports: tachycardia Rhythm: Reports: NSR [place]/QRS: Reports: normal T wave inversions noted in: Reports: v1 Interpretation: Reports: no acute changes, unchanged when compared to prior tracing (date), nonspecific ST-T wave changes S.B.A.R. - S.B.A.R. Situation: Demographics, MOA Background: Presenting Complaint, Relevant PMH, Meds, & Allergies Assessment: Vital Signs, Course and respsone to treatment, Patient/Family Expectation Recommendation: Barrier(s) to disposition, Recommendation based on pending studies, treatments, or consults S.B.A.R. Report Given to: Dr. Dias [email or web address] Repor Time: 21:18
[2017-01-03] MEDS: 0.9 % Sodium Chloride 1,000 ML IVC SCH (19:33)
[2017-01-03] MEDS ORDERED: Vancomycin 1,000 MG in D5% in Water 250 ML IVPB ONE (19:44)
[2017-01-03 19:58] LABS: Basophils % 0.2 %; Eosinophils # 0.1 K/mcL (0.0-0.6); Eosinophils % 0.5 %; Hematocrit 39.8 % (35.3-44.9); Hemoglobin 12.4 g/dL (11.5-15.4); Immature Granulocytes % 0.8 % (0-4); Immature Platelets 2.3 % (1.1-6.1); Lymphocytes # 1.7 K/mcL (0.6-4.6); Lymphocytes % 10.8 %; Mean Corpuscular HGB Conc 31.2 g/dL (31.6-35.5); Mean Corpuscular Hemoglobin 30.5 pg (28.0-33.3); Monocytes # 0.6 K/mcL (0.0-1.3); Monocytes % 3.7 %; Neutrophils # 13.4 K/mcL (1.6-8.9); Platelet Count 267 K/mcL (140-400); Red Blood Count 4.06 M/mcL (3.82-4.97); Red Cell Distribution Width 14.3 % (11.5-14.5)
[2017-01-03 20:04] LABS: INR 1.1; Prothrombin Time 11.8 Seconds (9.4-12.1)
[2017-01-03 20:06] LABS: Activated Partial Thrombo Time 25.4 Seconds (26.0-36.0)
[2017-01-03 20:06] LABS: ABG Base Excess 2.4 mEq/L (-2.0 to 3.0); ABG HCO3 31.2 mEQ/L (21-27); ABG Oxygen Saturation 81 % (95-98); ABG PCO2 68 mmHg (35-45); ABG PH 7.27 pH Units (7.32-7.45); ABG PO2 52 mmHg (85-104); ABG TCO2 33.3 mEq/L (20-26)
[2017-01-03 20:07] LABS: Blood Gas FiO2 32 %
[2017-01-03 20:11] LABS: BUN/Creatinine Ratio 19 (6-26); Blood Urea Nitrogen 16 mg/dL (7-20); Carbon Dioxide 24 mEq/L (19-29); Chloride 101 mEq/L (98-109); Glucose 78 mg/dL (70-99); Potassium 4.1 mEq/L (3.5-4.5); Sodium 135 mEq/L (136-145); eGFR For African Americans > 60 (> 60); eGFR For Non-African Americans > 60 (> 60)
[2017-01-03 20:12] LABS: Alanine Aminotransferase 23 Units/L (0-55); Albumin 3.1 g/dL (3.5-5.0); Albumin/Globulin Ratio 1.1 (1.1-2.2); Alkaline Phosphatase 44 Units/L (38-126); Aspartate Amino Transferase 26 Units/L (5-34); Bilirubin,Direct 0.3 mg/dL (0.0-0.5); Bilirubin,Indirect 0.3 mg/dL (0.0-1.2); Bilirubin,Total 0.6 mg/dL (0.2-1.2); Calcium 8.6 mg/dL (8.6-10.8); Globulin 2.8 g/dL (2.4-3.5); Magnesium 1.6 mg/dL (1.6-2.6); Osmolality,Calculated 280 (280-300); Total Protein 5.9 g/dL (6.0-8.3)
[2017-01-03 20:34] LABS: Bilirubin,Urine Negative (Negative); Blood,Urine Negative (Negative); Clarity,Urine Clear (Clear); Color,Urine Yellow (Yellow); Glucose,Urine (UA) Normal (Normal); Ketones,Urine Negative (Negative); Leukocyte Esterase,Urine Negative (Negative); Nitrite,Urine Negative (Negative); Protein,Urine Negative (Neg-Trace); Specific Gravity,Urine 1.013 (1.010-1.025); Urobilinogen,Urine Normal (Normal)
[2017-01-03] MEDS ORDERED: 0.9 % Sodium Chloride 1,000 ML IVC ONE (21:09)
[2017-01-03] MEDS ORDERED: Naloxone 0.4 MG/ML INJ IVP PRN (21:55)
[2017-01-03] MEDS ORDERED: Ondansetron 4 MG/2 ML VIAL IVP PRN (21:55)
[2017-01-03] MEDS ORDERED: Acetaminophen 325 MG TABLET PO PRN ×2 (21:55→22:23)
--- NOTE | 2017-01-03 22:41 | Internal Med History&Physical ---
<MonalisaKwaku Jerri - Last Filed: 01/03/17 23:06> Date of Encounter: 01/03/17 Time of Encounter: 22:32 Assessment and Plan (1) Acute on chronic respiratory failure with hypoxia and hypercapnia Current visit: No Status: Acute Secondary to pneumonia and COPD exacerbation. Respiratory acidosis upon arrival. Patient tolerating BiPAP well, oxygenation and mentation improving. Continue BiPAP. Discussed with family and patient and they are all agreeable to intubation and mechanical ventilation if required. (2) Pneumonia Current visit: No Status: Acute Recently discharged from hospital with pneumonia due to pseudomonas, which was stovall-sensitive. Patient apparently improved for a short time with levaquin but then worsened. Patient received total of 7 days which was likey inadequate. Will initiate zosyn 4.5gm q6h. Patient received a dose of vancomycin in the ED. Will not continue at this time. If patient fails to respond to zosyn, then we would consider broadening abx coverage. Paitent will likely require at least 2 weeks of treatment Qualifiers: Pneumonia type: due to unspecified organism Laterality: left Lung location: lower lobe of lung Qualified Code(s): J18.1 - Lobar pneumonia, unspecified organism (3) Sepsis Current visit: Yes Status: Acute Due to pnuemonia as discussed above. Patient presented with fever of 100.9, tachycardia, tachypnea, leukocytosis. Initial lactate was 1.3. Fluid bolus of 30cc/kg given. Blood cultures drawn and antibiotic initiated. Blood pressure stable. Will continue to monitor Qualifiers: Sepsis type: sepsis due to unspecified organism Qualified Code(s): A41.9 - Sepsis, unspecified organism (4) COPD with acute exacerbation Current visit: No Status: Acute Likely related to pneumonia as discussed above. Antibiotics initiated with zosyn , steroids and scheduled breathing treatments ordered. Continue symbicort (5) Chronic pain Current visit: Yes Status: Acute Hold pain medication due to decline in respiratory function and AMS. Qualifiers: Chronic pain type: other chronic pain Qualified Code(s): G89.29 - Other chronic pain (6) DVT prophylaxis Current visit: No Status: Acute Heparin 5000 SQ bid Internal Medicine - H&P: HPI Chief complaint: Dyspnea Admitted From: Emergency Dept Plans for Post Hospital Care: Home History of present illness: Ms. Dutton is a 61 year old female with history of severe COPD and recent pneumonia presents with dyspnea and cough. is at bedside and gives most of the history. The state that the patient was recently discharged from the hospital with pneumonia. She felt better a home for a few days but then her shortness of breath and cough returned. Patient reports productive cough with green sputum. Patient normally wears O2 as needed but she has needed it constantly for the last few days. states today her oxygen saturation dropped and would not respond despite increasing her oxygen, he also reports she seemed "loopy". Her oxygen then dropped into the 60s and EMS was called. Upon arrival to the ED patient oxygen saturation was in the 80s and was placed on BiPAP and she improved to the 90s. At the time of my exam patient was awake, alert and answering questions. Family stated that patient seems to be a little more "loopy" than baseline but is much improved from earlier in the day. Past Med Surg Social Fam HX - Past Medical History Medical history: arthritis, asthma, COPD, hyperlipidemia, hypertension, other Psychiatric history: anxiety, depression - Past Surgical History Surgical History: hysterectomy, orthopedic, other - Social History Smoking Status: Former smoker Smokeless Tobacco Status: No Alcohol use: occasionally Drug use: unknown - Family History Mother Hx Family Cardiac Disorders: Yes (CHF) Hx Family Respiratory Disorders: Yes Father Hx Family Cardiac Disorders: Yes ([place]) Internal Medicine - H&P: Meds ALPRAZolam [Xanax 0.5 MG Tablet] 0.25 - 0.5 mg PO BID PRN 03/16/16 [History] Atorvastatin Calcium [Lipitor] 20 mg PO HS 03/16/16 [History] Citalopram Hydrobromide [Celexa] 40 mg PO QAM 03/16/16 [History] Cyclobenzaprine [Flexeril] 10 mg PO TID 03/16/16 [History] Metoprolol XL (24 HR) Succ [Toprol Xl] 25 mg PO DAILY 03/16/16 [History] Albuterol Neb [Proventil Neb] 2.5 mg IH TID PRN 10/27/16 [History] Budesonide/Formoterol 160/4.5 [Symbicort 160/4.5] 2 puff IH BIDR 10/27/16 [ History] Gabapentin [Neurontin] 600 mg PO TID 10/27/16 [History] Montelukast [Singulair] 10 mg PO HS 10/27/16 [History] Naloxegol Oxalate [Movantik] 25 mg PO DAILY 10/27/16 [History] Oxycodone HCl/Acetaminophen [Percocet 7.5-325 mg Tablet] 1 each PO TID PRN 10/27 [History] Varenicline Tartrate [Chantix] 1 mg PO Q12H 10/27/16 [History] Albuterol Sulfate [Proair Hfa] 2 puff IH Q4-6H PRN 12/24/16 [History] Tiotropium [Spiriva] 1 cap IH DAILY 12/24/16 [History] levoFLOXacin [Levofloxacin] 750 mg PO DAILY #3 tablet 12/27/16 [Rx] predniSONE [PredniSONE] 40 mg PO DAILY #6 tablet 12/27/16 [Rx] Allergies No Known Allergies Allergy (Verified 12/24/16 13:53) ROS unobtainable: other (Due to patient being on BiPAP and slightly altered in mentation) All Systems PM: A 10-system review of systems was performed and is negative for pertinent findings except as documented above in the HPI. - Constitutional Vitals: Temp Pulse Resp BP Pulse Ox 100.9 F H 91 22 108/40 94 01/03/17 19:16 01/03/17 22:22 01/03/17 22:22 01/03/17 22:22 01/03/17 22:22 General appearance: Present: mild distress, A&O X 3, pleasant, answers questions appropriately - Head Head exam: Present: atraumatic, normal inspection, normocephalic - Eye Eye exam: Present: EOMI, PERRL - ENT ENT exam: Present: mucous membranes dry - Neck Neck exam general surgery: Present: full ROM, supple. Absent: tenderness - Respiratory Respiratory exam: Present: respiratory distress (mild), rhonchi (bibasilar, L>R) , wheezes (throughout), tachypnea. Absent: rales - Cardiovascular Cardiovascular exam: Present: RRR. Absent: gallop, rubs, systolic murmur - GI/Abdominal GI/Abdominal exam: Present: normal bowel sounds, soft. Absent: distended, tenderness - Extremities Exam Extremities exam: Present: warm. Absent: pedal edema, tenderness - Neurological Exam Neurological exam: Present: alert, altered, CN II-XII intact, no focal deficits , strengths equal and symetr throughout - Skin Skin exam: Present: dry, intact, warm Internal Med - H&P Results - Labs CBC & Chem 7: 01/03/17 19:49 01/03/17 19:49 - ABG Interpretation Interpretation: respiratory acidosis - Diagnostic Studies Chest x-ray Status: image reviewed by me (bilaterally opacities concerning for pneumonia, L> R) <Kade Murillo - Last Filed: 01/03/17 23:14> Date of Encounter: 01/03/17 Internal Medicine - H&P: HPI History of present illness: Ms. Dutton is a 61 year old female All Systems PM: A 10-system review of systems was performed and is negative for pertinent findings except as documented above in the HPI. - Constitutional Vitals: Temp Pulse Resp BP Pulse Ox 100.9 F H 91 14 105/61 94 01/03/17 19:16 01/03/17 22:22 01/03/17 22:38 01/03/17 22:38 01/03/17 22:22 Internal Med - H&P Results - Labs CBC & Chem 7: 01/03/17 19:49 01/03/17 19:49 - Attending Attestation I examined this patient and my medical decision-making was reviewed with Dr. Castaneda. I agree with the documented findings, disposition and treatment plan as described except to the extent set forth below. 61 yo CF with COPD who was recently admitted last week with pneumonia and discharged on levaquin returned due to worsening SOB, cough, sputum and fevers. After her discharge, her sputum cultures were positive for Pseudomonas. On exam, she has bilateral basal rhonchi more on the left and diffuse wheezing. Patient is awake on BIPAP and answering questions appropriately. Accompanied by her who states that her mental status is much improved compared to when she came to the ER. Labs reviewed and CXR personally reviewed - Bilateral basal infiltrates with left greater worsened compared to CXR on 12/24/16 A/P: 1. Pseudomonal pneumonia of bilateral basal regions with left greater than right - Admit to inpatient status. Expected to be in the hospital at least 2 midnights. High risk due to risk of worsening resp. failure and septic shock. Zosyn iv. Eventual quinolone on DC. Needs 2 weeks of antibiotic therapy in total. Expected DC dispo to home. 2. Acute hypoxic and hypercapnic respiratory failure - Pt. uses oxygen at home only at night and as needed during the day for the past 3 months per her PMD only for COPD. Never had a sleep study. BIPAP with oxygen supplementation. Due to pneumonia and COPD exacerbation. Duonebs. Symptomatically improved. Monitor. 3. COPD exacerbation - As above. Duonebs. Counselled regarding smoking cessation. pt. willing to quit. 4. Sepsis due to Pseudomonas pneumonia ROULA PrinceBS
[2017-01-03] MEDS ORDERED: 0.9 % Sodium Chloride 1,000 ML IVC SCH (23:15)
[2017-01-03] MEDS: Ipratropium/Albuterol Neb 3 ML IH SCH (23:48)
[2017-01-03] MEDS ORDERED: Sennosides 8.6 MG TABLET PO PRN (23:53)
[2017-01-04] MEDS: 0.9 % Sodium Chloride 1,000 ML IVC SCH (00:42)
[2017-01-04] MEDS: methylPREDNISolone 125 MG/2 ML VIAL IVP SCH ×5 (00:56→23:49)
[2017-01-04 01:43] LABS: ABG Base Excess 0.7 mEq/L (-2.0 to 3.0); ABG HCO3 29.7 mEQ/L (21-27); ABG Oxygen Saturation 95 % (95-98); ABG PH 7.23 pH Units (7.32-7.45); ABG PO2 88 mmHg (85-104); ABG TCO2 31.9 mEq/L (20-26)
[2017-01-04 01:45] LABS: ABG PCO2 71 mmHg (35-45); Blood Gas FiO2 50 %
[2017-01-04] MEDS: Piperacillin/Tazobactam 3.375 GM in D5% in Water (Mini-Bag+) 100 ML IVPB SCH ×3 (03:25→20:12)
[2017-01-04] MEDS: Ipratropium/Albuterol Neb 3 ML IH SCH ×5 (03:36→20:46)
[2017-01-04 04:17] LABS: ABG Base Excess 2.8 mEq/L (-2.0 to 3.0); ABG HCO3 31.6 mEQ/L (21-27); ABG Oxygen Saturation 97 % (95-98); ABG PH 7.25 pH Units (7.32-7.45); ABG PO2 105 mmHg (85-104); ABG TCO2 33.8 mEq/L (20-26)
[2017-01-04 04:18] LABS: ABG PCO2 72 mmHg (35-45)
--- NOTE | 2017-01-04 04:46 | Event Note ---
Date of Encounter: 01/04/17 Time of Encounter: 04:43 I reevaluated the patient several times throughout the night and each time she was sleeping when I entered the room with shallow breathing on BiPAP machine. She was arousable but was confused at times. We continued to titrate up her BiPAP settings however ABG showed no improvement in her respiratory acidosis. At that time given the patient's continuing respiratory acidosis despite increasing BiPAP settings and patient's somnolence it was decided to intubate and provide mechanical ventilation. I was able to discuss this with the patient and she seemed to understand. Attempts were made to contact the however these were unsuccessful. The patient was brought to the intensive care unit and intubation was performed as well as placement of a right central venous catheter (see procedure notes for details). Antibiotics were broadened to include Vancomycin and Levaquin in addition to the Zosyn that has already been ordered. Sputum culture has been sent.
[2017-01-04] MEDS ORDERED: *HR* Etomidate 20 MG/10 ML AMPUL IVP ONE ×2 (04:47→09:04)
[2017-01-04] MEDS ORDERED: *HR* Midazolam HCl 5 MG/5 ML VIAL IVP ONE ×2 (04:47→09:04)
[2017-01-04] MEDS ORDERED: Vancomycin 1,000 MG in D5% in Water 250 ML IVPB SCH (05:00)
[2017-01-04 05:18] LABS: Hematocrit 34.7 % (35.3-44.9); Hemoglobin 10.7 g/dL (11.5-15.4); Mean Corpuscular HGB Conc 30.8 g/dL (31.6-35.5); Mean Corpuscular Hemoglobin 30.7 pg (28.0-33.3); Mean Corpuscular Volume 99.4 fL (83.0-100.0); Mean Platelet Volume 9.5 fL (9.4-12.4); Platelet Count 236 K/mcL (140-400); Red Blood Count 3.49 M/mcL (3.82-4.97); Red Cell Distribution Width 14.3 % (11.5-14.5)
[2017-01-04] MEDS ORDERED: *HR* Midazolam HCl 2 MG/2 ML VIAL ONE (05:27)
[2017-01-04] MEDS: FentaNYL (PF) 1,000 MCG in 0.9 % Sodium Chloride 80 ML IVC SCH ×3 (05:33→21:59)
[2017-01-04 05:41] LABS: Alanine Aminotransferase 19 Units/L (0-55); Albumin 2.7 g/dL (3.5-5.0); Albumin/Globulin Ratio 1.1 (1.1-2.2); Alkaline Phosphatase 30 Units/L (38-126); Aspartate Amino Transferase 19 Units/L (5-34); BUN/Creatinine Ratio 16 (6-26); Bilirubin,Total 0.5 mg/dL (0.2-1.2); Blood Urea Nitrogen 12 mg/dL (7-20); Calcium 8.2 mg/dL (8.6-10.8); Carbon Dioxide 28 mEq/L (19-29); Chloride 105 mEq/L (98-109); Globulin 2.5 g/dL (2.4-3.5); Glucose 140 mg/dL (70-99); Magnesium 1.8 mg/dL (1.6-2.6); Osmolality,Calculated 286 (280-300); Potassium 4.3 mEq/L (3.5-4.5); Sodium 137 mEq/L (136-145); Total Protein 5.2 g/dL (6.0-8.3); eGFR For African Americans > 60 (> 60); eGFR For Non-African Americans > 60 (> 60)
[2017-01-04 06:07] LABS: Neutrophils # 32.5 K/mcL (1.6-8.9)
[2017-01-04 06:08] LABS: Platelet Estimate Normal (Normal)
[2017-01-04] MEDS ORDERED: *HR* Midazolam HCl 2 MG/2 ML VIAL IVP ONE (06:08)
--- NOTE | 2017-01-04 06:12 | Procedure Note ---
Date of procedure: 01/04/17 Pre-op diagnosis: Hypercapnic Respiratory failure Post-op diagnosis: same Procedure: Endotracheal intubation: Patient continued to have worsening hypercapnic respiratory failure despite BiPAP therapy therefore is determined to intubate the patient placed on mechanical ventilation. This was discussed with the patient who gave verbal consent. Also, attempts were made to reach the but these were unsuccessful. Patient was transferred to the ICU. The patient was given 20 mg of etomidate and 5 mg of Versed for sedation. An initial attempt was made however there was difficulty opening the patient's mouth so 30 mg succinylcholine and 2 mg of Versed were given. The size 4 glidascope blade was then introduced in the oropharynx. The vocal cords were visualized and a size 7.5 ET tube was visualized passing through the vocal cords and secured at the 23 cm kallie at the lips. CO2 detector was positive for color change in the remote bilateral breath sounds. The patient was placed on mechanical ventilation. The patient tolerated the procedure well, there were no immediate complications. Chest x-ray to confirm ET tube placement is pending. The attending physician, Dr. Murillo, was present for the entire procedure. Anesthesia: MAC Surgeon: Kwaku Sheldon Estimated blood loss (cc): 0 Pathology: none sent Condition: critical Disposition: ICU
[2017-01-04 06:19] LABS: ABG Base Excess 0.1 mEq/L (-2.0 to 3.0); ABG HCO3 26.8 mEQ/L (21-27); ABG Oxygen Saturation 99 % (95-98); ABG PCO2 52 mmHg (35-45); ABG PH 7.32 pH Units (7.32-7.45); ABG PO2 153 mmHg (85-104); ABG TCO2 28.4 mEq/L (20-26)
--- NOTE | 2017-01-04 06:19 | Procedure Note ---
Date of procedure: 01/04/17 Pre-op diagnosis: Sepsis/hypotension Post-op diagnosis: same Procedure: Central venous catheter placement: Verbal consent was obtained earlier in the evening from the and the patient. Attempts to reach the prior to performing the procedure were unsuccessful. The right internal jugular vein was surveyed using ultrasound and deemed to be a suitable target. The patient was cleaned and draped in usual sterile fashion. Under ultrasound guidance the introducer needle was introduced into the right internal jugular vein. Dark red blood was returned. The guidewire was passed through the syringe and needle apparatus and resistance was felt so the guidewire was withdrawn. The syringe was removed and dark red blood was seen following from the needle to the guidewire was then passed through the needle and into the vein without resistance. The needle was then removed, and a terri in the skin was made. the dilator was passed over the guidewire in the skin and soft tissues were dilated. The dilator was then removed and a 20 cm triple-lumen catheter was passed over the guidewire and advanced into the right internal jugular vein. The guidewire was then removed intact. All 3 ports were tested and shown to draw blood and flush easily. the catheter was then sutured in place at 4 points, Biopatch and sterile dressing were applied. Chest x-ray is ordered to confirm placement. The patient tolerated the procedure well, there were no immediate complications. Anesthesia: WALI, local Surgeon: Kwaku Sheldon Estimated blood loss (cc): 5 IV fluids (cc): 15 Pathology: none sent Condition: critical Disposition: ICU
[2017-01-04] MEDS ORDERED: Lacri-Lube 3.5 GM TUBE BOTH EYES PRN (06:20)
[2017-01-04 06:21] LABS: Blood Gas FiO2 60 %
[2017-01-04] MEDS: Vancomycin 1,250 MG in D5% in Water 250 ML IVPB SCH ×2 (06:49→17:04)
[2017-01-04] MEDS: *HR* Heparin 5,000 UNIT/ML VIAL SQ SCH ×2 (06:53→17:43)
[2017-01-04] MEDS: Pantoprazole 40 MG VIAL IVP SCH (07:29)
[2017-01-04] MEDS: Lacri-Lube 3.5 GM TUBE BOTH EYES SCH ×4 (07:32→20:14)
[2017-01-04] MEDS: Budesonide/Formoterol 160/4.5 MDI IH SCH ×2 (07:54→20:46)
[2017-01-04] MEDS: Chlorhexidine Rinse 15 ML MOUTHWASH MM SCH ×2 (08:20→20:11)
[2017-01-04] MEDS: Levofloxacin 750 MG/150 ML 750 MG/150 ML BAG IVPB SCH (08:20)
[2017-01-04] MEDS: Metoprolol XL (24 HR) Succ 25 MG TAB.ER.24H PO SCH (08:22)
[2017-01-04] MEDS ORDERED: *HR* Succinylcholine 200 MG/10 ML VIAL IVP ONE (09:04)
[2017-01-04] MEDS ORDERED: Dextrose Gel 15 GM PO PRN ×2 (11:33)
[2017-01-04] MEDS ORDERED: D5% in Water 1,000 ML IVC PRN (11:33)
[2017-01-04] MEDS ORDERED: *HR* Dextrose 50 % in Water (Syg) 50 ML SYRINGE IVP PRN (11:33)
--- NOTE | 2017-01-04 11:46 | Pulmonology Consult Note ---
<Steven Kelly - Last Filed: 01/04/17 12:43> Date of Encounter: 01/04/17 Time of Encounter: 11:35 Assessment and Plan (1) Sepsis Current Visit: Yes Status: Acute Sever sepsis. She meets criteria with Fever, Tachycardia, Leukocytosis and organ dysfunction ( respiratory failure). Source ( Bacterial pneumonia) Blood and sputum cultures have been sent. Currently she is hemodynamcially stable. Lactic acidosis of 2.9 initially. Now trending down. Continue vancomycin, Zosyn, and levofloxacin. (2) Acute on chronic respiratory failure with hypoxia and hypercapnia Current Visit: No Status: Acute Multifacotrial. AECOPD with bacterial pneumonia. Baseline Severe COPD Continued tobacco abuse. Sputum Cultures from last admission have grown Sarmiento sensitive Pseudomonas. Continue LEvofloxacin and Zosyn. Continue Vancomycin for MRSA coverage. May consider deescalating if improving clinically. Continue IV steroids and bronchodialators. Currently she is meeting ventilatory and oxygenation goals Wean Fio2 on vent if possible. (3) Bacterial pneumonia Current Visit: Yes Status: Acute as stated above. (4) COPD with acute exacerbation Current Visit: No Status: Acute as stated above. (5) Tobacco abuse Current Visit: Yes Status: Acute advise cessation. Nicotine patch when off vent. (6) Leukocytosis Current Visit: Yes Status: Acute trending up. However she was started on steroids. Continue to monitor. (7) Anemia Current Visit: Yes Status: Acute etiology unclear. Possibly from recent hospitalization/ repeat testing. check hematinics. (8) DVT prophylaxis Current Visit: No Status: Acute SQ heparin History of Present Illness Consult date: 01/04/17 Requesting physician: Kade Murillo Reason for consult: COPD, other (rewpiratory failure) Chief complaint: dyspnea History of present illness: Mrs. Dutton is a 61-year-old female with past medical history of severe COPD and asthma. She was recently admitted to [facility] and treated for a COPD exacerbation and pneumonia. Her sputum cultures would grow pansensitive pseudomonas aeruginosa . She was discharged with levofloxacin. Reportedly she stated that she completed this course of antibiotic. She would be readmitted to the hospital on 01/03/2017 with acute exacerbation of COPD and also worsening pneumonia based on radiographic imaging. She would continue to be hypercapnic and eventually require mechanical intubation. Currently the patient is intubated and on sedation. Therefore the history was supplemented by the medical record. Currently no family at bedside. Past Med Surg Social Fam HX - Past Medical History Medical history: arthritis, asthma, COPD, hyperlipidemia, hypertension, other Psychiatric history: anxiety, depression - Past Surgical History Surgical History: hysterectomy, orthopedic, other - Social History Smoking Status: Former smoker Smokeless Tobacco Status: No Alcohol use: occasionally Drug use: unknown - Family History Mother Hx Family Cardiac Disorders: Yes (CHF) Hx Family Respiratory Disorders: Yes Father Hx Family Cardiac Disorders: Yes ([place]) Medications and Allergies ALPRAZolam [Xanax 0.5 MG Tablet] 0.25 - 0.5 mg PO BID PRN 03/16/16 [History] Atorvastatin Calcium [Lipitor] 20 mg PO HS 03/16/16 [History] Citalopram Hydrobromide [Celexa] 40 mg PO QAM 03/16/16 [History] Cyclobenzaprine [Flexeril] 10 mg PO TID 03/16/16 [History] Metoprolol XL (24 HR) Succ [Toprol Xl] 25 mg PO DAILY 03/16/16 [History] Albuterol Neb [Proventil Neb] 2.5 mg IH TID PRN 10/27/16 [History] Budesonide/Formoterol 160/4.5 [Symbicort 160/4.5] 2 puff IH BIDR 10/27/16 [ History] Montelukast [Singulair] 10 mg PO HS 10/27/16 [History] Naloxegol Oxalate [Movantik] 25 mg PO DAILY 10/27/16 [History] Oxycodone HCl/Acetaminophen [Percocet 7.5-325 mg Tablet] 1 each PO TID PRN 10/27 [History] Varenicline Tartrate [Chantix] 1 mg PO Q12H 10/27/16 [History] Albuterol Sulfate [Proair Hfa] 2 puff IH Q4-6H PRN 12/24/16 [History] Tiotropium [Spiriva] 1 cap IH DAILY 12/24/16 [History] Gabapentin [Neurontin] 600 mg PO HS 01/04/17 [History] Allergies No Known Allergies Allergy (Verified 01/04/17 07:02) ROS unobtainable: due to mental status All Systems: A 10-system review of systems was performed and is negative for pertinent findings except as documented above in the HPI. Physical Examination Vital Signs: Vital Signs, Last 4 Hours Temp Pulse Resp BP Pulse Ox 01/04/17 11:18 14 98 01/04/17 11:00 70 14 90/56 99 01/04/17 10:00 71 14 97/58 98 01/04/17 09:44 14 98 01/04/17 09:00 70 14 93/57 100 01/04/17 08:00 72 14 97/61 100 01/04/17 07:56 14 99 01/04/17 07:46 97.9 F Gen.: This is a well-developed well-nourished 61-year-old female who is currently on mechanical ventilation and on IV sedation. She is tolerating that well. HEENT: Head is normocephalic atraumatic. Pupils are equally round react light. Anicteric sclera. Moist mucous membranes. There is endotracheal and OG tube in place. Trachea is midline. There is a right CVC in place is clean and well dressed. Heart: Regular rate and rhythm without murmurs rubs or gallops. Lungs: Clearly she is diminished. There is normal rise and expanse of the chest wall bilaterally. She does have some mild expiratory wheezes. Abdomen: Abdomen is soft, nondistended, nontender to palpation. Musculoskeletal: Grossly normal for age no gross deformity noted. Extremities: There is no clubbing, cyanosis or edema. Integument: There is no rashes or lesions noted on exam. Ventilator Settings Ventilator Settings: Ventilator Settings, Last 8 Hours Ventilator Mode VC+ Ventilator Mode VC+ Ventilator Mode VC+ Ventilator Mode VC+ Ventilator Mode VC+ Ventilator Mode VC+ Ventilator Mode VC+ Ventilator Mode VC+ Ventilator Tidal Volume 450 Setting Ventilator Tidal Volume 450 Setting Ventilator Tidal Volume 450 Setting Ventilator Tidal Volume 450 Setting Ventilator Tidal Volume 450 Setting Ventilator Tidal Volume 450 Setting Ventilator Tidal Volume 450 Setting Ventilator Tidal Volume 450 Setting Ventilator Respiratory Rate 14 Setting Ventilator Respiratory Rate 14 Setting Ventilator Respiratory Rate 14 Setting Ventilator Respiratory Rate 14 Setting Ventilator Respiratory Rate 14 Setting Ventilator Respiratory Rate 16 Setting Ventilator Respiratory Rate 16 Setting Ventilator Respiratory Rate 16 Setting Actual Respiratory Rate 14 Actual Respiratory Rate 19 Actual Respiratory Rate 14 Actual Respiratory Rate 14 Actual Respiratory Rate 14 Actual Respiratory Rate 16 Positive End Expiratory 5 Pressure Positive End Expiratory 5 Pressure Positive End Expiratory 5 Pressure Positive End Expiratory 5 Pressure Positive End Expiratory 5 Pressure Positive End Expiratory 5 Pressure Positive End Expiratory 5 Pressure Positive End Expiratory 5 Pressure Peak Inspiratory Airway 21 Pressure Peak Inspiratory Airway 23 Pressure Peak Inspiratory Airway 21 Pressure Peak Inspiratory Airway 29 Pressure Peak Inspiratory Airway 23 Pressure Peak Inspiratory Airway 23 Pressure Peak Inspiratory Airway 22 Pressure Results - Laboratory Findings CBC and BMP: 01/04/17 04:26 01/04/17 04:26 ABG ABG pH 7.32 pH Units (7.32-7.45) 01/04/17 06:06 ABG pCO2 52 mmHg (35-45) H D 01/04/17 06:06 ABG pO2 153 mmHg (85-104) H 01/04/17 06:06 ABG O2 Saturation 99 % (95-98) H 01/04/17 06:06 PT/INR, D-dimer PT 11.8 Seconds (9.4-12.1) 01/03/17 19:49 Abnormal lab findings: Abnormal lab results WBC 32.5 K/mcL (4.3-11.1) H* D 01/04/17 04:26 RBC 3.49 M/mcL (3.82-4.97) L 01/04/17 04:26 Hgb 10.7 g/dL (11.5-15.4) L D 01/04/17 04:26 Hct 34.7 % (35.3-44.9) L 01/04/17 04:26 MCHC 30.8 g/dL (31.6-35.5) L 01/04/17 04:26 Band Neutrophils % 34.0 % (0-4) H 01/04/17 04:26 Neutrophils # 32.5 K/mcL (1.6-8.9) H 01/04/17 04:26 APTT 25.4 Seconds (26.0-36.0) L 01/03/17 19:49 ABG pCO2 52 mmHg (35-45) H D 01/04/17 06:06 ABG pO2 153 mmHg (85-104) H 01/04/17 06:06 ABG Total CO2 28.4 mEq/L (20-26) H 01/04/17 06:06 ABG O2 Saturation 99 % (95-98) H 01/04/17 06:06 Glucose 140 mg/dL (70-99) H 01/04/17 04:26 POC Glucose 141 (58-89) H 01/04/17 05:10 Lactic Acid 2.6 mmol/L (0.5-2.2) H 01/04/17 10:30 Calcium 8.2 mg/dL (8.6-10.8) L 01/04/17 04:26 Alkaline Phosphatase 30 Units/L (38-126) L 01/04/17 04:26 Serum Total Protein 5.2 g/dL (6.0-8.3) L 01/04/17 04:26 Albumin 2.7 g/dL (3.5-5.0) L 01/04/17 04:26 - Microbiology Findings Microbiology Findings: Microbiology, Last 48 Hours 01/04/17 05:25 Sputum Culture - Preliminary Sputum - Clinical Findings Intake & Output: Intake & Output 01/03/17 01/04/17 01/04/17 23:59 07:59 15:59 Intake Total 100 / 1100 0 / 0 500 / 500 Output Total 0 / 0 1300 / 1300 Balance 100 / 1100 -1300 / -1300 500 / 500 Weight 66.5 kg 66.5 kg Consult Discharge Plan - Plan Referrals: Francois Daly MD [Primary Care Provider] - <Adeline Ely M - Last Filed: 01/04/17 16:46> Date of Encounter: 01/04/17 All Systems: A 10-system review of systems was performed and is negative for pertinent findings except as documented above in the HPI. Physical Examination Vital Signs: Vital Signs, Last 4 Hours Temp Pulse Resp BP Pulse Ox 01/04/17 16:00 98.1 F 74 14 107/62 97 01/04/17 15:52 14 96 01/04/17 15:00 74 14 103/82 97 01/04/17 14:00 75 14 99/53 96 01/04/17 13:58 14 97 01/04/17 13:00 74 14 94/57 95 Ventilator Settings Ventilator Settings: Ventilator Settings, Last 8 Hours Ventilator Mode VC+ Ventilator Mode VC+ Ventilator Mode VC+ Ventilator Mode VC+ Ventilator Mode VC+ Ventilator Mode VC+ Ventilator Mode VC+ Ventilator Mode VC+ Ventilator Tidal Volume 450 Setting Ventilator Tidal Volume 450 Setting Ventilator Tidal Volume 450 Setting Ventilator Tidal Volume 450 Setting Ventilator Tidal Volume 450 Setting Ventilator Tidal Volume 450 Setting Ventilator Tidal Volume 450 Setting Ventilator Tidal Volume 450 Setting Ventilator Respiratory Rate 14 Setting Ventilator Respiratory Rate 14 Setting Ventilator Respiratory Rate 14 Setting Ventilator Respiratory Rate 14 Setting Ventilator Respiratory Rate 14 Setting Ventilator Respiratory Rate 14 Setting Ventilator Respiratory Rate 14 Setting Ventilator Respiratory Rate 14 Setting Actual Respiratory Rate 14 Actual Respiratory Rate 14 Actual Respiratory Rate 14 Actual Respiratory Rate 14 Actual Respiratory Rate 14 Actual Respiratory Rate 14 Actual Respiratory Rate 19 Actual Respiratory Rate 14 Positive End Expiratory 5 Pressure Positive End Expiratory 5 Pressure Positive End Expiratory 5 Pressure Positive End Expiratory 5 Pressure Positive End Expiratory 5 Pressure Positive End Expiratory 5 Pressure Positive End Expiratory 5 Pressure Positive End Expiratory 5 Pressure Peak Inspiratory Airway 21 Pressure Peak Inspiratory Airway 21 Pressure Peak Inspiratory Airway 20 Pressure Peak Inspiratory Airway 20 Pressure Peak Inspiratory Airway 20 Pressure Peak Inspiratory Airway 21 Pressure Peak Inspiratory Airway 23 Pressure Peak Inspiratory Airway 21 Pressure Results - Laboratory Findings CBC and BMP: 01/04/17 04:26 01/04/17 04:26 ABG ABG pH 7.32 pH Units (7.32-7.45) 01/04/17 06:06 ABG pCO2 52 mmHg (35-45) H D 01/04/17 06:06 ABG pO2 153 mmHg (85-104) H 01/04/17 06:06 ABG O2 Saturation 99 % (95-98) H 01/04/17 06:06 PT/INR, D-dimer PT 11.8 Seconds (9.4-12.1) 01/03/17 19:49 Abnormal lab findings: Abnormal lab results WBC 32.5 K/mcL (4.3-11.1) H* D 01/04/17 04:26 RBC 3.49 M/mcL (3.82-4.97) L 01/04/17 04:26 Hgb 10.7 g/dL (11.5-15.4) L D 01/04/17 04:26 Hct 34.7 % (35.3-44.9) L 01/04/17 04:26 MCHC 30.8 g/dL (31.6-35.5) L 01/04/17 04:26 Band Neutrophils % 34.0 % (0-4) H 01/04/17 04:26 Neutrophils # 32.5 K/mcL (1.6-8.9) H 01/04/17 04:26 APTT 25.4 Seconds (26.0-36.0) L 01/03/17 19:49 ABG pCO2 52 mmHg (35-45) H D 01/04/17 06:06 ABG pO2 153 mmHg (85-104) H 01/04/17 06:06 ABG Total CO2 28.4 mEq/L (20-26) H 01/04/17 06:06 ABG O2 Saturation 99 % (95-98) H 01/04/17 06:06 Glucose 140 mg/dL (70-99) H 01/04/17 04:26 POC Glucose 131 (58-89) H 01/04/17 11:31 Lactic Acid 2.6 mmol/L (0.5-2.2) H 01/04/17 10:30 Calcium 8.2 mg/dL (8.6-10.8) L 01/04/17 04:26 Alkaline Phosphatase 30 Units/L (38-126) L 01/04/17 04:26 Serum Total Protein 5.2 g/dL (6.0-8.3) L 01/04/17 04:26 Albumin 2.7 g/dL (3.5-5.0) L 01/04/17 04:26 - Microbiology Findings Microbiology Findings: Microbiology, Last 48 Hours 01/04/17 05:25 Sputum Culture - Preliminary Sputum - Clinical Findings Intake & Output: Intake & Output 01/04/17 01/04/17 01/04/17 07:59 15:59 23:59 Intake Total 0 / 0 714 / 714 100 / 100 Output Total 1300 / 1300 300 / 300 450 / 450 Balance -1300 / -1300 414 / 414 -350 / -350 Weight 66.5 kg
[2017-01-04] MEDS: Insulin LISPRO 300 UNITS/3 ML VIAL SQ SCH ×2 (11:58→17:56)
[2017-01-04] MEDS ORDERED: Dexmedetomidine HCl 400 MCG/100 ML MLS IVC ONE (13:36)
[2017-01-04] MEDS: Dexmedetomidine HCl 400 MCG/100 ML MLS IVC SCH ×2 (13:51→22:00)
[2017-01-04] MEDS: ALPRAZolam 0.5 MG TABLET PO SCH ×2 (15:04→20:12)
--- NOTE | 2017-01-04 18:16 | Electrocardiograph Report ---
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
[2017-01-04] MEDS: Norepinephrine 4 MG in D5% in Water 250 ML IVC SCH (19:51)
[2017-01-05] MEDS: Ipratropium/Albuterol Neb 3 ML IH SCH ×6 (00:02→19:40)
[2017-01-05] MEDS: Lacri-Lube 3.5 GM TUBE BOTH EYES SCH ×3 (00:25→09:52)
[2017-01-05] MEDS: Insulin LISPRO 300 UNITS/3 ML VIAL SQ SCH ×4 (00:26→18:49)
[2017-01-05] MEDS: Piperacillin/Tazobactam 3.375 GM in D5% in Water (Mini-Bag+) 100 ML IVPB SCH ×3 (03:07→20:46)
[2017-01-05 04:23] LABS: ABG Base Excess 3.5 mEq/L (-2.0 to 3.0); ABG HCO3 27.8 mEQ/L (21-27); ABG Oxygen Saturation 99 % (95-98); ABG PCO2 40 mmHg (35-45); ABG PH 7.45 pH Units (7.32-7.45); ABG PO2 119 mmHg (85-104); Blood Gas FiO2 40 %
[2017-01-05] MEDS: Norepinephrine 4 MG in D5% in Water 250 ML IVC SCH (04:40)
[2017-01-05] MEDS: FentaNYL (PF) 1,000 MCG in 0.9 % Sodium Chloride 80 ML IVC SCH (04:40)
[2017-01-05 05:01] LABS: Basophils % 0.1 %; Hematocrit 31.4 % (35.3-44.9); Hemoglobin 10.2 g/dL (11.5-15.4); Immature Granulocytes % 1.3 % (0-4); Lymphocytes # 0.5 K/mcL (0.6-4.6); Mean Corpuscular HGB Conc 32.5 g/dL (31.6-35.5); Mean Corpuscular Volume 95.4 fL (83.0-100.0); Mean Platelet Volume 9.6 fL (9.4-12.4); Monocytes # 0.7 K/mcL (0.0-1.3); Monocytes % 3.1 %; Neutrophils # 22.2 K/mcL (1.6-8.9); Platelet Count 204 K/mcL (140-400); Red Blood Count 3.29 M/mcL (3.82-4.97); Red Cell Distribution Width 14.1 % (11.5-14.5); Segmented Neutrophils % 93.5 %
[2017-01-05 05:06] LABS: Ionized Calcium 1.25 mmol/L (1.15-1.35)
[2017-01-05 05:17] LABS: % Iron Saturation 8 % (15-50); BUN/Creatinine Ratio 17 (6-26); Blood Urea Nitrogen 11 mg/dL (7-20); Calcium 8.5 mg/dL (8.6-10.8); Carbon Dioxide 26 mEq/L (19-29); Chloride 109 mEq/L (98-109); Glucose 137 mg/dL (70-99); Iron 18 mcg/dL (50-170); Osmolality,Calculated 294 (280-300); Sodium 141 mEq/L (136-145); Transferrin 153 mg/dL (180-382); eGFR For African Americans > 60 (> 60); eGFR For Non-African Americans > 60 (> 60)
[2017-01-05 05:18] LABS: Potassium 3.1 mEq/L (3.5-4.5)
[2017-01-05 05:32] LABS: Platelet Estimate Normal (Normal)
[2017-01-05 05:37] LABS: Ferritin 234 ng/ml (5-204)
[2017-01-05] MEDS: Pantoprazole 40 MG VIAL IVP SCH (05:38)
[2017-01-05] MEDS: Vancomycin 1,250 MG in D5% in Water 250 ML IVPB SCH (05:38)
[2017-01-05] MEDS: *HR* Heparin 5,000 UNIT/ML VIAL SQ SCH ×2 (05:38→18:49)
[2017-01-05] MEDS: methylPREDNISolone 125 MG/2 ML VIAL IVP SCH (05:38)
[2017-01-05] MEDS: Dexmedetomidine HCl 400 MCG/100 ML MLS IVC SCH (05:41)
[2017-01-05 06:05] LABS: Folate 13.4 ng/mL (7.0-31.4)
[2017-01-05] MEDS ORDERED: Calcium Gluconate 1,000 MG in D5% in Water 100 ML IVPB PRN (06:41)
[2017-01-05] MEDS ORDERED: Potassium Phosphate 44 MEQ in 0.9 % Sodium Chloride 250 ML IVPB PRN (06:41)
[2017-01-05] MEDS ORDERED: Potassium Chloride 40 MEQ/200 ML BAG IVPB PRN (06:41)
[2017-01-05] MEDS ORDERED: Magnesium Sulfate 2 GM in D5% in Water 100 ML IVPB PRN (06:41)
[2017-01-05] MEDS ORDERED: Sodium Phosphate 30 MMOL in D5% in Water 100 ML IVPB PRN (06:41)
--- NOTE | 2017-01-05 06:54 | Pulmonology Progress Note ---
<Florence Tidwell - Last Filed: 01/05/17 10:33> Date of Encounter: 01/05/17 Time of Encounter: 08:23 Assessment and Plan (1) Sepsis Current Visit: Yes Status: Acute patient had fever, tachycardia, leukocytosis. source of infection: bacterial pneumonia. sputum culture grew gram negative david and strep agalectiae blood cultures showed no growth. lactate trending down. Plan: continue zosyn, levaquin. continue bronchodilators and IV steroids with insulin coverage. attempt to wean off BiAPAP as tolerated. continue to monitor for today. if sable, will transfer out of ICU. Qualifiers: Sepsis type: sepsis due to unspecified organism Qualified Code(s): A41.9 - Sepsis, unspecified organism (2) Acute on chronic respiratory failure with hypoxia and hypercapnia Current Visit: No Status: Acute etiology multifactorial in setting of COPD, continued tobacco use, bacterial pneumonia. Sputum Cultures from last admission have grown Sarmiento sensitive Pseudomonas. Plan decreased dose of IV steroids today. continue zosyn and levaquin. continue bronchodilators. cotinue with BiPAP and wean off as tolerated. (3) Bacterial pneumonia Current Visit: Yes Status: Acute as above (4) COPD with acute exacerbation Current Visit: No Status: Acute as above (5) Leukocytosis Current Visit: Yes Status: Acute white count trending down. etiology likely secondary to pneumonia/COPD exacerbation Plan: continue antibiotics. Qualifiers: Leukocytosis type: unspecified Qualified Code(s): D72.829 - Elevated white blood cell count, unspecified (6) Anemia Current Visit: Yes Status: Acute normal MCV B12/folate normal low iron, ferritin. will hold off on iron supplementation for now in setting of sepsis. Qualifiers: Anemia type: iron deficiency Iron deficiency anemia type: unspecified iron deficiency Qualified Code(s): D50.9 - Iron deficiency anemia, unspecified (7) DVT prophylaxis Current Visit: No Status: Acute Heparin SQ Neuro/sedation: patient is off sedation currently. very somnolent, alert but not oriented. will continue to monitor. Pulm: had acute/chronic respiratory failure with hypoxia and hypercapnia, currently resolved. multifactorial in setting of pneumonia, COPD exacerbation, continued tobacco use. On BiPAP now. will monitor. cardiac: no issues currently. GI/Fluids/electrolytes: electrolyte protocol. Protonix for GI prophylaxis, senna plus. KUB pending. on Senna plus. Renal: no issues at this time. Endo: low dose sliding scale insulin for steroid coverage. ID: on zosyn, levaquin. Heme/onc: heparin for DVT prophylaxis. Low iron. will hold iron supplementation for now in setting of sepsis. disposition: transfer out of ICU today if stable. Subjective Principal diagnosis: sepsis Interval history: 61 year old female evaluated at bedside. There were no acute events overnight. Objective PUL Vital signs: Last Vital Signs Temp 97.7 F 01/05/17 00:00 Pulse 56 01/05/17 06:00 Resp 16 01/05/17 06:30 BP 118/71 01/05/17 06:00 Pulse Ox 100 01/05/17 06:30 General appearance: alert, lethargic (somnolent) Eyes: nonicteric ENT: oropharynx moist Neck: supple Effort: other (on BIPAP) Auscultation: bilateral: rales Cardiovascular: regular rate and rhythm Gastrointestinal: hypoactive bowel sounds, soft, non-tender Integumentary: normal Extremities: no cyanosis, no edema Musculoskeletal: no deformities anxious Ventilator Settings Ventilator Settings: Ventilator Settings, Last 8 Hours Ventilator Mode VC+ Ventilator Mode VC+ Ventilator Mode VC+ Ventilator Mode VC+ Ventilator Mode VC+ Ventilator Mode VC+ Ventilator Mode VC+ Ventilator Mode VC+ Ventilator Mode VC+ Ventilator Mode VC+ Ventilator Mode VC+ Ventilator Mode VC+ Ventilator Tidal Volume 450 Setting Ventilator Tidal Volume 450 Setting Ventilator Tidal Volume 450 Setting Ventilator Tidal Volume 450 Setting Ventilator Tidal Volume 450 Setting Ventilator Tidal Volume 450 Setting Ventilator Tidal Volume 450 Setting Ventilator Tidal Volume 450 Setting Ventilator Tidal Volume 450 Setting Ventilator Tidal Volume 450 Setting Ventilator Tidal Volume 450 Setting Ventilator Tidal Volume 450 Setting Ventilator Respiratory Rate 16 Setting Ventilator Respiratory Rate 16 Setting Ventilator Respiratory Rate 16 Setting Ventilator Respiratory Rate 16 Setting Ventilator Respiratory Rate 14 Setting Ventilator Respiratory Rate 16 Setting Ventilator Respiratory Rate 14 Setting Ventilator Respiratory Rate 14 Setting Ventilator Respiratory Rate 14 Setting Ventilator Respiratory Rate 16 Setting Ventilator Respiratory Rate 14 Setting Ventilator Respiratory Rate 14 Setting Actual Respiratory Rate 16 Actual Respiratory Rate 14 Actual Respiratory Rate 14 Actual Respiratory Rate 24 Actual Respiratory Rate 14 Actual Respiratory Rate 14 Actual Respiratory Rate 14 Actual Respiratory Rate 14 Actual Respiratory Rate 14 Actual Respiratory Rate 14 Actual Respiratory Rate 14 Positive End Expiratory 5 Pressure Positive End Expiratory 5 Pressure Positive End Expiratory 5 Pressure Positive End Expiratory 5 Pressure Positive End Expiratory 5 Pressure Positive End Expiratory 5 Pressure Positive End Expiratory 5 Pressure Positive End Expiratory 5 Pressure Positive End Expiratory 5 Pressure Positive End Expiratory 5 Pressure Positive End Expiratory 5 Pressure Positive End Expiratory 5 Pressure Peak Inspiratory Airway 25 Pressure Peak Inspiratory Airway 24 Pressure Peak Inspiratory Airway 24 Pressure Peak Inspiratory Airway 32 Pressure Peak Inspiratory Airway 25 Pressure Peak Inspiratory Airway 24 Pressure Peak Inspiratory Airway 25 Pressure Peak Inspiratory Airway 23 Pressure Peak Inspiratory Airway 22 Pressure Peak Inspiratory Airway 23 Pressure Peak Inspiratory Airway 22 Pressure Results - Laboratory Findings CBC and BMP: 01/05/17 04:50 01/05/17 04:00 ABG ABG pH 7.45 pH Units (7.32-7.45) 01/05/17 04:12 ABG pCO2 40 mmHg (35-45) 01/05/17 04:12 ABG pO2 119 mmHg (85-104) H 01/05/17 04:12 ABG O2 Saturation 99 % (95-98) H 01/05/17 04:12 PT/INR, D-dimer PT 11.8 Seconds (9.4-12.1) 01/03/17 19:49 Abnormal lab findings: Abnormal lab results WBC 23.7 K/mcL (4.3-11.1) H 01/05/17 04:50 RBC 3.29 M/mcL (3.82-4.97) L 01/05/17 04:50 Hgb 10.2 g/dL (11.5-15.4) L 01/05/17 04:50 Hct 31.4 % (35.3-44.9) L 01/05/17 04:50 Band Neutrophils % 34.0 % (0-4) H 01/04/17 04:26 Neutrophils # 22.2 K/mcL (1.6-8.9) H 01/05/17 04:50 Lymphocytes # 0.5 K/mcL (0.6-4.6) L 01/05/17 04:50 APTT 25.4 Seconds (26.0-36.0) L 01/03/17 19:49 ABG pO2 119 mmHg (85-104) H 01/05/17 04:12 ABG HCO3 27.8 mEQ/L (21-27) H 01/05/17 04:12 ABG Total CO2 29.0 mEq/L (20-26) H 01/05/17 04:12 ABG O2 Saturation 99 % (95-98) H 01/05/17 04:12 ABG Base Excess 3.5 mEq/L (-2.0 to 3.0) H 01/05/17 04:12 Potassium 3.1 mEq/L (3.5-4.5) L D 01/05/17 04:00 Glucose 137 mg/dL (70-99) H 01/05/17 04:00 POC Glucose 165 (58-89) H 01/04/17 23:51 Calcium 8.5 mg/dL (8.6-10.8) L 01/05/17 04:00 Iron 18 mcg/dL (50-170) L 01/05/17 04:00 % Saturation 8 % (15-50) L 01/05/17 04:00 Transferrin 153 mg/dL (180-382) L 01/05/17 04:00 Ferritin 234 ng/ml (5-204) H 01/05/17 04:00 Alkaline Phosphatase 30 Units/L (38-126) L 01/04/17 04:26 Serum Total Protein 5.2 g/dL (6.0-8.3) L 01/04/17 04:26 Albumin 2.7 g/dL (3.5-5.0) L 01/04/17 04:26 - Microbiology Findings Microbiology Findings: Microbiology, Last 48 Hours 01/04/17 05:25 Sputum Culture - Preliminary Sputum Gram Negative David Strep agalactiae - (Group B) - Clinical Findings Intake & Output: Intake & Output 01/04/17 01/04/17 01/05/17 15:59 23:59 07:59 Intake Total 714 / 714 656 / 656 265 / 265 Output Total 300 / 300 900 / 900 500 / 500 Balance 414 / 414 -244 / -244 -235 / -235 Weight 68.9 kg Consult Discharge Plan - Plan Referrals: Francois Daly MD [Primary Care Provider] - <Adeline Ely - Last Filed: 01/05/17 12:20> Date of Encounter: 01/05/17 Objective PUL Vital signs: Last Vital Signs Temp 97.2 F L 01/05/17 11:44 Pulse 91 01/05/17 12:00 Resp 14 01/05/17 12:00 BP 110/78 01/05/17 12:00 Pulse Ox 98 01/05/17 12:00 Ventilator Settings Ventilator Settings: Ventilator Settings, Last 8 Hours Ventilator Mode VC+ Ventilator Mode VC+ Ventilator Mode VC+ Ventilator Tidal Volume 450 Setting Ventilator Tidal Volume 450 Setting Ventilator Tidal Volume 450 Setting Ventilator Respiratory Rate 16 Setting Ventilator Respiratory Rate 16 Setting Ventilator Respiratory Rate 16 Setting Actual Respiratory Rate 16 Actual Respiratory Rate 14 Actual Respiratory Rate 14 Positive End Expiratory 5 Pressure Positive End Expiratory 5 Pressure Positive End Expiratory 5 Pressure Peak Inspiratory Airway 25 Pressure Peak Inspiratory Airway 24 Pressure Peak Inspiratory Airway 24 Pressure Results - Laboratory Findings CBC and BMP: 01/05/17 04:50 01/05/17 04:00 ABG ABG pH 7.37 pH Units (7.32-7.45) 01/05/17 11:48 ABG pCO2 48 mmHg (35-45) H 01/05/17 11:48 ABG pO2 99 mmHg (85-104) 01/05/17 11:48 ABG O2 Saturation 97 % (95-98) 01/05/17 11:48 PT/INR, D-dimer PT 11.8 Seconds (9.4-12.1) 01/03/17 19:49 Abnormal lab findings: Abnormal lab results WBC 23.7 K/mcL (4.3-11.1) H 01/05/17 04:50 RBC 3.29 M/mcL (3.82-4.97) L 01/05/17 04:50 Hgb 10.2 g/dL (11.5-15.4) L 01/05/17 04:50 Hct 31.4 % (35.3-44.9) L 01/05/17 04:50 Band Neutrophils % 34.0 % (0-4) H 01/04/17 04:26 Neutrophils # 22.2 K/mcL (1.6-8.9) H 01/05/17 04:50 Lymphocytes # 0.5 K/mcL (0.6-4.6) L 01/05/17 04:50 APTT 25.4 Seconds (26.0-36.0) L 01/03/17 19:49 ABG pCO2 48 mmHg (35-45) H 01/05/17 11:48 ABG HCO3 27.7 mEQ/L (21-27) H 01/05/17 11:48 ABG Total CO2 29.2 mEq/L (20-26) H 01/05/17 11:48 Potassium 3.1 mEq/L (3.5-4.5) L D 01/05/17 04:00 Glucose 137 mg/dL (70-99) H 01/05/17 04:00 POC Glucose 108 (58-89) H 01/05/17 11:40 Calcium 8.5 mg/dL (8.6-10.8) L 01/05/17 04:00 Iron 18 mcg/dL (50-170) L 01/05/17 04:00 % Saturation 8 % (15-50) L 01/05/17 04:00 Transferrin 153 mg/dL (180-382) L 01/05/17 04:00 Ferritin 234 ng/ml (5-204) H 01/05/17 04:00 Alkaline Phosphatase 30 Units/L (38-126) L 01/04/17 04:26 Serum Total Protein 5.2 g/dL (6.0-8.3) L 01/04/17 04:26 Albumin 2.7 g/dL (3.5-5.0) L 01/04/17 04:26 - Microbiology Findings Microbiology Findings: Microbiology, Last 48 Hours 01/04/17 05:25 Sputum Culture - Preliminary Sputum Gram Negative David Strep agalactiae - (Group B) - Clinical Findings Intake & Output: Intake & Output 01/04/17 01/05/17 01/05/17 23:59 07:59 15:59 Intake Total 656 / 656 365 / 365 Output Total 900 / 900 700 / 700 200 / 200 Balance -244 / -244 -335 / -335 -200 / -200 Weight 68.9 kg - Attending Attestation I examined this patient and my medical decision-making was reviewed with the AUDIT OFFICER/PA/Advanced Practice Nurse/Resident Physician. I agree with the documented findings, disposition and treatment plan as described except to the extent set forth below. Patient seen and examined. Labs, radiology, chart personally reviewed. 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 It was difficult to do a reliable spontaneous breathing trial due to her agitation and patient was extubated successfully to BiPAP. Bronchodilators and treatment for COPD exacerbation. Cardiovascular: stable GI: Nutrition per dietary and GI prophylaxis per routine Heme: DVT prophylaxis per routine ID: Continue antibiotics and plan to de-escalation Renal; urine out put and renal funtion reviewed Endorcine: blood glucose is monitored Lines: all lines checked and no evidence of infections Skin: skin care to prevent pressure ulcers per nursing routine care If patient remained stable then we will consider transferring patient to the floor.
[2017-01-05] MEDS ORDERED: Aminoglycoside Consult 1 EACH MC ONE (07:33)
[2017-01-05] MEDS: Budesonide/Formoterol 160/4.5 MDI IH SCH ×2 (08:15→19:40)
[2017-01-05] MEDS: Levofloxacin 750 MG/150 ML 750 MG/150 ML BAG IVPB SCH (09:52)
[2017-01-05] MEDS: Metoprolol XL (24 HR) Succ 25 MG TAB.ER.24H PO SCH (11:27)
[2017-01-05] MEDS: Sennosides/Docusate Sodium TABLET PO SCH ×2 (11:27→20:42)
[2017-01-05] MEDS: ALPRAZolam 0.5 MG TABLET PO SCH ×2 (11:28→20:42)
[2017-01-05] MEDS ORDERED: Haloperidol Lactate 5 MG/ML VIAL IVP ONE (11:36)
[2017-01-05] MEDS: *HR* Metoprolol 5 MG/5 ML VIAL IVP SCH ×2 (11:49→18:48)
[2017-01-05 11:53] LABS: ABG Base Excess 1.9 mEq/L (-2.0 to 3.0); ABG HCO3 27.7 mEQ/L (21-27); ABG Oxygen Saturation 97 % (95-98); ABG PCO2 48 mmHg (35-45); ABG PH 7.37 pH Units (7.32-7.45); ABG PO2 99 mmHg (85-104); ABG TCO2 29.2 mEq/L (20-26); Blood Gas FiO2 30 %; Blood Gas Respiration Rate 12
[2017-01-05] MEDS ORDERED: SODIUM CHLORIDE/NAHCO3/KCL/PEG 4,000 ML SOLN.RECON PO ONE (13:26)
[2017-01-05] MEDS ORDERED: MOM Conc 10 ML UD.LIQ PO ONE ×2 (18:21→18:45)
[2017-01-05] MEDS ORDERED: MethylPREDNISolone 40 MG/ML VIAL IVP SCH (21:00)
[2017-01-06] MEDS: *HR* Metoprolol 5 MG/5 ML VIAL IVP SCH ×2 (00:12→05:37)
[2017-01-06] MEDS: Ipratropium/Albuterol Neb 3 ML IH SCH ×8 (00:14→23:59)
[2017-01-06] MEDS: Insulin LISPRO 300 UNITS/3 ML VIAL SQ SCH ×2 (00:17→05:27)
[2017-01-06 03:49] LABS: Hematocrit 28.7 % (35.3-44.9); Hemoglobin 9.6 g/dL (11.5-15.4); Immature Granulocytes % 1.2 % (0-4); Lymphocytes # 0.4 K/mcL (0.6-4.6); Lymphocytes % 1.9 %; Mean Corpuscular HGB Conc 33.4 g/dL (31.6-35.5); Mean Corpuscular Hemoglobin 31.4 pg (28.0-33.3); Mean Corpuscular Volume 93.8 fL (83.0-100.0); Mean Platelet Volume 9.6 fL (9.4-12.4); Monocytes # 0.7 K/mcL (0.0-1.3); Monocytes % 3.5 %; Neutrophils # 19.1 K/mcL (1.6-8.9); Platelet Count 242 K/mcL (140-400); Red Blood Count 3.06 M/mcL (3.82-4.97); Red Cell Distribution Width 14.4 % (11.5-14.5); Segmented Neutrophils % 93.4 %
[2017-01-06 03:57] LABS: Ionized Calcium 1.18 mmol/L (1.15-1.35)
[2017-01-06 04:02] LABS: Magnesium 2.2 mg/dL (1.6-2.6); Phosphorous 2.6 mg/dL (2.3-4.7)
[2017-01-06 04:04] LABS: BUN/Creatinine Ratio 23 (6-26); Blood Urea Nitrogen 14 mg/dL (7-20); Calcium 8.3 mg/dL (8.6-10.8); Carbon Dioxide 29 mEq/L (19-29); Chloride 106 mEq/L (98-109); Glucose 129 mg/dL (70-99); Osmolality,Calculated 294 (280-300); Potassium 2.8 mEq/L (3.5-4.5); Sodium 141 mEq/L (136-145); eGFR For African Americans > 60 (> 60); eGFR For Non-African Americans > 60 (> 60)
[2017-01-06] MEDS: Norepinephrine 4 MG in D5% in Water 250 ML IVC SCH (04:22)
[2017-01-06] MEDS: Piperacillin/Tazobactam 3.375 GM in D5% in Water (Mini-Bag+) 100 ML IVPB SCH (04:50)
[2017-01-06] MEDS: *HR* Heparin 5,000 UNIT/ML VIAL SQ SCH ×2 (05:37→18:22)
--- NOTE | 2017-01-06 06:56 | Pulmonology Progress Note ---
<FabienFlorence landa - Last Filed: 01/06/17 08:31> Date of Encounter: 01/06/17 Time of Encounter: 08:31 Assessment and Plan (1) Sepsis Current Visit: Yes Status: Acute patient had fever, tachycardia, leukocytosis. source of infection: bacterial pneumonia. sputum culture grew gram negative david and strep agalectiae blood cultures showed no growth. lactate trending down. Plan: continue zosyn, levaquin, de escalate when sensitivities result. continue bronchodilators. switched from IV to PO steroids today. wean off nasal canula as tolerated. . will transfer out of ICU today. Qualifiers: Sepsis type: sepsis due to unspecified organism Qualified Code(s): A41.9 - Sepsis, unspecified organism (2) Acute on chronic respiratory failure with hypoxia and hypercapnia Current Visit: No Status: Acute etiology multifactorial in setting of COPD, continued tobacco use, bacterial pneumonia. Sputum Cultures from last admission have grown Sarmiento sensitive Pseudomonas. Plan continue oral steroids and taper down continue zosyn and levaquin. continue bronchodilators. wean off nasal canula as tolerated. (3) Bacterial pneumonia Current Visit: Yes Status: Acute as above (4) COPD with acute exacerbation Current Visit: No Status: Acute as above (5) Leukocytosis Current Visit: Yes Status: Acute white count trending down. etiology likely secondary to pneumonia/COPD exacerbation Plan: continue antibiotics. Qualifiers: Leukocytosis type: unspecified Qualified Code(s): D72.829 - Elevated white blood cell count, unspecified (6) Anemia Current Visit: Yes Status: Acute normal MCV B12/folate normal low iron, ferritin. will hold off on iron supplementation for now in setting of sepsis. Qualifiers: Anemia type: iron deficiency Iron deficiency anemia type: unspecified iron deficiency Qualified Code(s): D50.9 - Iron deficiency anemia, unspecified (7) DVT prophylaxis Current Visit: No Status: Acute Heparin SQ Neuro/sedation: Alert and oriented x3, mentating well. Pulm: had acute/chronic respiratory failure with hypoxia and hypercapnia, currently resolved. multifactorial in setting of pneumonia, COPD exacerbation, continued tobacco use. On BiPAP now. will monitor. cardiac: no issues currently. GI/Fluids/electrolytes: senna plus. Renal: no issues at this time. Endo: low dose sliding scale insulin for steroid coverage. ID: on zosyn, levaquin. awaiting sensitivities from microbiology. Heme/onc: heparin for DVT prophylaxis. Low iron. will hold iron supplementation for now in setting of sepsis. disposition: transfer out of ICU Subjective Principal diagnosis: sepsis Interval history: 61 year old female evaluated at bedside. There were no acute events overnight. she is currently alert and oriented x3, mentating well. she passed her bedside swallow eval. Objective PUL Vital signs: Last Vital Signs Temp 98.8 F 01/06/17 04:00 Pulse 94 01/06/17 06:00 Resp 16 01/06/17 06:00 BP 124/95 01/06/17 06:00 Pulse Ox 95 01/06/17 06:00 General appearance: no acute distress, alert Eyes: nonicteric ENT: oropharynx moist Mallampati (class): 2 Neck: supple, no lymphadenopathy, no JVD Auscultation: bilateral: diminished breath sounds Cardiovascular: regular rate and rhythm Gastrointestinal: normoactive bowel sounds, soft, non-tender Extremities: no cyanosis, no edema normal mental status anxious Results - Laboratory Findings CBC and BMP: 01/06/17 03:35 01/06/17 03:35 ABG ABG pH 7.37 pH Units (7.32-7.45) 01/05/17 11:48 ABG pCO2 48 mmHg (35-45) H 01/05/17 11:48 ABG pO2 99 mmHg (85-104) 01/05/17 11:48 ABG O2 Saturation 97 % (95-98) 01/05/17 11:48 PT/INR, D-dimer PT 11.8 Seconds (9.4-12.1) 01/03/17 19:49 Abnormal lab findings: Abnormal lab results WBC 20.5 K/mcL (4.3-11.1) H 01/06/17 03:35 RBC 3.06 M/mcL (3.82-4.97) L 01/06/17 03:35 Hgb 9.6 g/dL (11.5-15.4) L 01/06/17 03:35 Hct 28.7 % (35.3-44.9) L 01/06/17 03:35 Band Neutrophils % 34.0 % (0-4) H 01/04/17 04:26 Neutrophils # 19.1 K/mcL (1.6-8.9) H 01/06/17 03:35 Lymphocytes # 0.4 K/mcL (0.6-4.6) L 01/06/17 03:35 APTT 25.4 Seconds (26.0-36.0) L 01/03/17 19:49 ABG pCO2 48 mmHg (35-45) H 01/05/17 11:48 ABG HCO3 27.7 mEQ/L (21-27) H 01/05/17 11:48 ABG Total CO2 29.2 mEq/L (20-26) H 01/05/17 11:48 Potassium 2.8 mEq/L (3.5-4.5) L 01/06/17 03:35 Glucose 129 mg/dL (70-99) H 01/06/17 03:35 POC Glucose 137 (58-89) H 01/05/17 23:34 Calcium 8.3 mg/dL (8.6-10.8) L 01/06/17 03:35 Iron 18 mcg/dL (50-170) L 01/05/17 04:00 % Saturation 8 % (15-50) L 01/05/17 04:00 Transferrin 153 mg/dL (180-382) L 01/05/17 04:00 Ferritin 234 ng/ml (5-204) H 01/05/17 04:00 Alkaline Phosphatase 30 Units/L (38-126) L 01/04/17 04:26 Serum Total Protein 5.2 g/dL (6.0-8.3) L 01/04/17 04:26 Albumin 2.7 g/dL (3.5-5.0) L 01/04/17 04:26 - Microbiology Findings Microbiology Findings: Microbiology, Last 48 Hours 01/04/17 05:25 Sputum Culture - Preliminary Sputum Gram Negative David Strep agalactiae - (Group B) - Clinical Findings Intake & Output: Intake & Output 01/05/17 01/05/17 01/06/17 15:59 23:59 07:59 Intake Total 100 / 100 100 / 100 Output Total 375 / 375 325 / 325 175 / 175 Balance -375 / -375 -225 / -225 -75 / -75 Weight 68.2 kg Consult Discharge Plan - Plan Referrals: Francois Daly MD [Primary Care Provider] - <Adeline Ely M - Last Filed: 01/06/17 12:45> Date of Encounter: 01/06/17 Objective PUL Vital signs: Last Vital Signs Temp 98.0 F 01/06/17 11:07 Pulse 102 01/06/17 11:55 Resp 16 01/06/17 08:18 BP 103/67 01/06/17 08:00 Pulse Ox 95 01/06/17 08:18 Results - Laboratory Findings CBC and BMP: 01/06/17 03:35 01/06/17 09:20 ABG ABG pH 7.37 pH Units (7.32-7.45) 01/05/17 11:48 ABG pCO2 48 mmHg (35-45) H 01/05/17 11:48 ABG pO2 99 mmHg (85-104) 01/05/17 11:48 ABG O2 Saturation 97 % (95-98) 01/05/17 11:48 PT/INR, D-dimer PT 11.8 Seconds (9.4-12.1) 01/03/17 19:49 Abnormal lab findings: Abnormal lab results WBC 20.5 K/mcL (4.3-11.1) H 01/06/17 03:35 RBC 3.06 M/mcL (3.82-4.97) L 01/06/17 03:35 Hgb 9.6 g/dL (11.5-15.4) L 01/06/17 03:35 Hct 28.7 % (35.3-44.9) L 01/06/17 03:35 Band Neutrophils % 34.0 % (0-4) H 01/04/17 04:26 Neutrophils # 19.1 K/mcL (1.6-8.9) H 01/06/17 03:35 Lymphocytes # 0.4 K/mcL (0.6-4.6) L 01/06/17 03:35 APTT 25.4 Seconds (26.0-36.0) L 01/03/17 19:49 ABG pCO2 48 mmHg (35-45) H 01/05/17 11:48 ABG HCO3 27.7 mEQ/L (21-27) H 01/05/17 11:48 ABG Total CO2 29.2 mEq/L (20-26) H 01/05/17 11:48 Potassium 3.2 mEq/L (3.5-4.5) L 01/06/17 09:20 Glucose 129 mg/dL (70-99) H 01/06/17 03:35 POC Glucose 114 (58-89) H 01/06/17 10:52 Calcium 8.3 mg/dL (8.6-10.8) L 01/06/17 03:35 Phosphorus 1.8 mg/dL (2.3-4.7) L 01/06/17 09:20 Iron 18 mcg/dL (50-170) L 01/05/17 04:00 % Saturation 8 % (15-50) L 01/05/17 04:00 Transferrin 153 mg/dL (180-382) L 01/05/17 04:00 Ferritin 234 ng/ml (5-204) H 01/05/17 04:00 Alkaline Phosphatase 30 Units/L (38-126) L 01/04/17 04:26 Serum Total Protein 5.2 g/dL (6.0-8.3) L 01/04/17 04:26 Albumin 2.7 g/dL (3.5-5.0) L 01/04/17 04:26 - Microbiology Findings Microbiology Findings: Microbiology, Last 48 Hours 01/04/17 05:25 Sputum Culture - Final Sputum Escherichia coli Strep agalactiae - (Group B) - Clinical Findings Intake & Output: Intake & Output 01/05/17 01/06/17 01/06/17 23:59 07:59 15:59 Intake Total 100 / 100 100 / 100 490 / 490 Output Total 325 / 325 375 / 375 75 / 75 Balance -225 / -225 -275 / -275 415 / 415 Weight 68.2 kg - Attending Attestation I examined this patient and my medical decision-making was reviewed with the WEB PRESS JOGGER/PA/Advanced Practice Nurse/Resident Physician. I agree with the documented findings, disposition and treatment plan as described except to the extent set forth below. Patient seen and examined. Labs, radiology, chart personally reviewed. 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 Patient is doing much better and she stated she will not smoke tobacco again. She would be transferred to the floor for further management and transition to oral steroid as a preparation for discharging patient home and continue bronchodilators Cardiovascular: stable GI: Nutrition per dietary and GI prophylaxis per routine Heme: DVT prophylaxis per routine ID: Continue antibiotic and plan to de-escalation Renal; urine out put and renal funtion reviewed Endorcine: blood glucose is monitored Lines: all lines checked and no evidence of infections Skin: skin care to prevent pressure ulcers per nursing routine care
[2017-01-06] MEDS: Budesonide/Formoterol 160/4.5 MDI IH SCH ×3 (08:00→20:44)
[2017-01-06] MEDS ORDERED: Haloperidol Lactate 5 MG/ML VIAL IVP PRN ×2 (08:21→09:55)
[2017-01-06] MEDS: Pantoprazole 40 MG VIAL IVP SCH (08:44)
[2017-01-06] MEDS: ALPRAZolam 0.5 MG TABLET PO SCH ×2 (08:44→22:04)
[2017-01-06] MEDS: Levofloxacin 750 MG/150 ML 750 MG/150 ML BAG IVPB SCH (08:45)
[2017-01-06] MEDS: Sennosides/Docusate Sodium TABLET PO SCH ×2 (08:45→22:04)
[2017-01-06] MEDS: Metoprolol XL (24 HR) Succ 25 MG TAB.ER.24H PO SCH (08:45)
[2017-01-06] MEDS ORDERED: predniSONE 20 MG TABLET PO SCH ×2 (09:00)
[2017-01-06 09:44] LABS: Phosphorous 1.8 mg/dL (2.3-4.7); Potassium 3.2 mEq/L (3.5-4.5)
[2017-01-06] MEDS ORDERED: Acetaminophen 325 MG TABLET PO PRN (09:55)
[2017-01-06] MEDS ORDERED: *HR* Dextrose 50 % in Water (Syg) 50 ML SYRINGE IVP PRN (09:55)
[2017-01-06] MEDS ORDERED: Ondansetron 4 MG/2 ML VIAL IVP PRN (09:55)
[2017-01-06] MEDS ORDERED: Naloxone 0.4 MG/ML INJ IVP PRN (09:55)
[2017-01-06] MEDS ORDERED: Dextrose Gel 15 GM PO PRN ×2 (09:55)
[2017-01-06] MEDS ORDERED: D5% in Water 1,000 ML IVC PRN (09:55)
[2017-01-06] MEDS ORDERED: Piperacillin/Tazobactam 3.375 GM in D5% in Water (Mini-Bag+) 100 ML IVPB SCH (11:30)
[2017-01-06] MEDS ORDERED: Insulin LISPRO 300 UNITS/3 ML VIAL SQ SCH ×2 (12:00→21:00)
[2017-01-06 16:12] LABS: BUN/Creatinine Ratio 21 (6-26); Blood Urea Nitrogen 15 mg/dL (7-20); Calcium 8.7 mg/dL (8.6-10.8); Carbon Dioxide 28 mEq/L (19-29); Chloride 109 mEq/L (98-109); Glucose 118 mg/dL (70-99); Osmolality,Calculated 300 (280-300); Potassium 3.9 mEq/L (3.5-4.5); Sodium 144 mEq/L (136-145); eGFR For African Americans > 60 (> 60); eGFR For Non-African Americans > 60 (> 60)
[2017-01-06] MEDS ORDERED: *HR* OxyCODONE/APAP 7.5/325 TABLET PO PRN (20:08)
[2017-01-06] MEDS ORDERED: *HR* OxyCODONE/APAP 7.5/325 TABLET PO SCH (21:00)
[2017-01-06] MEDS ORDERED: Gabapentin 300 MG CAPSULE PO SCH (21:00)
[2017-01-07 04:04] LABS: Basophils % 0.1 %; Hematocrit 28.2 % (35.3-44.9); Immature Granulocytes % 0.8 % (0-4); Lymphocytes # 1.3 K/mcL (0.6-4.6); Lymphocytes % 8.1 %; Mean Corpuscular HGB Conc 31.9 g/dL (31.6-35.5); Mean Corpuscular Hemoglobin 30.5 pg (28.0-33.3); Mean Corpuscular Volume 95.6 fL (83.0-100.0); Mean Platelet Volume 9.6 fL (9.4-12.4); Monocytes # 0.9 K/mcL (0.0-1.3); Neutrophils # 13.3 K/mcL (1.6-8.9); Platelet Count 238 K/mcL (140-400); Red Blood Count 2.95 M/mcL (3.82-4.97); Red Cell Distribution Width 14.6 % (11.5-14.5)
[2017-01-07 04:07] LABS: BUN/Creatinine Ratio 26 (6-26); Blood Urea Nitrogen 17 mg/dL (7-20); Calcium 8.6 mg/dL (8.6-10.8); Carbon Dioxide 32 mEq/L (19-29); Chloride 107 mEq/L (98-109); Glucose 109 mg/dL (70-99); Magnesium 2.1 mg/dL (1.6-2.6); Osmolality,Calculated 298 (280-300); Phosphorous 1.9 mg/dL (2.3-4.7); Potassium 4.2 mEq/L (3.5-4.5); Sodium 143 mEq/L (136-145); eGFR For African Americans > 60 (> 60); eGFR For Non-African Americans > 60 (> 60)
[2017-01-07 04:10] LABS: Ionized Calcium 1.13 mmol/L (1.15-1.35)
[2017-01-07] MEDS: Ipratropium/Albuterol Neb 3 ML IH SCH ×3 (04:20→11:55)
[2017-01-07] MEDS: *HR* Heparin 5,000 UNIT/ML VIAL SQ SCH (05:49)
[2017-01-07] MEDS ORDERED: Calcium Gluconate 1,000 MG in D5% in Water 100 ML IVPB ONE (06:49)
--- NOTE | 2017-01-07 07:03 | Pulmonology Progress Note ---
<Florence Tidwell - Last Filed: 01/07/17 08:25> Date of Encounter: 01/07/17 Time of Encounter: 08:25 Assessment and Plan (1) Sepsis Current Visit: Yes Status: Acute patient had fever, tachycardia, leukocytosis. source of infection: bacterial pneumonia. sputum culture grew gram negative jd and strep agalectiae blood cultures showed no growth. lactate trending down. Plan: antibiotics de-escalated to levaquin continue bronchodilators. continue PO steroids with taper. wean off nasal canula as tolerated. . will do 6 minute walk test and see if patient qualifies for oxygen all the time. she is currently on 2L HS. will transfer out of ICU afterwards. Qualifiers: Sepsis type: sepsis due to unspecified organism Qualified Code(s): A41.9 - Sepsis, unspecified organism (2) Acute on chronic respiratory failure with hypoxia and hypercapnia Current Visit: No Status: Acute etiology multifactorial in setting of COPD, continued tobacco use, bacterial pneumonia. Sputum Cultures from last admission have grown Sarmiento sensitive Pseudomonas. Plan continue oral steroids and taper down continue levaquin. continue bronchodilators. wean off nasal canula as tolerated. (3) Bacterial pneumonia Current Visit: Yes Status: Acute as above (4) COPD with acute exacerbation Current Visit: No Status: Acute as above (5) Leukocytosis Current Visit: Yes Status: Acute white count trending down. etiology likely secondary to pneumonia/COPD exacerbation Plan: continue antibiotics. Qualifiers: Leukocytosis type: unspecified Qualified Code(s): D72.829 - Elevated white blood cell count, unspecified (6) Anemia Current Visit: Yes Status: Acute normal MCV B12/folate normal low iron, ferritin. will hold off on iron supplementation for now in setting of sepsis. Qualifiers: Anemia type: iron deficiency Iron deficiency anemia type: unspecified iron deficiency Qualified Code(s): D50.9 - Iron deficiency anemia, unspecified (7) DVT prophylaxis Current Visit: No Status: Acute Heparin SQ Neuro/sedation: Alert and oriented x3, mentating well. Pulm: had acute/chronic respiratory failure with hypoxia and hypercapnia, currently resolved. multifactorial in setting of pneumonia, COPD exacerbation, continued tobacco use. On BiPAP now. will monitor. cardiac: no issues currently. GI/Fluids/electrolytes: senna plus. Renal: no issues at this time. Endo: low dose sliding scale insulin for steroid coverage. ID: continue oral levaquin for bacterial pneumonia. Heme/onc: heparin for DVT prophylaxis. Low iron. will hold iron supplementation for now in setting of sepsis. disposition: transfer out of ICU Subjective Principal diagnosis: sepsis Interval history: 61 year old female evaluated at bedside. She had no events overnight and slept well. Patient denies any nausea, vomiting, diarrhea, fever, chills. she denies any complaints today. Objective PUL Vital signs: Last Vital Signs Temp 97.9 F 01/07/17 04:55 Pulse 98 01/07/17 06:00 Resp 24 01/07/17 06:00 BP 115/67 01/07/17 04:20 Pulse Ox 96 01/07/17 06:00 General appearance: no acute distress, alert, lethargic ENT: oropharynx moist Mallampati (class): 2 Neck: supple, lymphadenopathy, no JVD Auscultation: bilateral: wheezes, rales Cardiovascular: regular rate and rhythm Gastrointestinal: normoactive bowel sounds Integumentary: normal Extremities: no cyanosis, no edema Musculoskeletal: no deformities non-focal exam mood appropriate Results - Laboratory Findings CBC and BMP: 01/07/17 03:35 01/07/17 03:35 ABG ABG pH 7.37 pH Units (7.32-7.45) 01/05/17 11:48 ABG pCO2 48 mmHg (35-45) H 01/05/17 11:48 ABG pO2 99 mmHg (85-104) 01/05/17 11:48 ABG O2 Saturation 97 % (95-98) 01/05/17 11:48 PT/INR, D-dimer PT 11.8 Seconds (9.4-12.1) 01/03/17 19:49 Abnormal lab findings: Abnormal lab results WBC 15.6 K/mcL (4.3-11.1) H 01/07/17 03:35 RBC 2.95 M/mcL (3.82-4.97) L 01/07/17 03:35 Hgb 9.0 g/dL (11.5-15.4) L 01/07/17 03:35 Hct 28.2 % (35.3-44.9) L 01/07/17 03:35 RDW 14.6 % (11.5-14.5) H 01/07/17 03:35 Band Neutrophils % 34.0 % (0-4) H 01/04/17 04:26 Neutrophils # 13.3 K/mcL (1.6-8.9) H 01/07/17 03:35 APTT 25.4 Seconds (26.0-36.0) L 01/03/17 19:49 ABG pCO2 48 mmHg (35-45) H 01/05/17 11:48 ABG HCO3 27.7 mEQ/L (21-27) H 01/05/17 11:48 ABG Total CO2 29.2 mEq/L (20-26) H 01/05/17 11:48 Carbon Dioxide 32 mEq/L (19-29) H 01/07/17 03:35 Glucose 109 mg/dL (70-99) H 01/07/17 03:35 POC Glucose 136 (58-89) H 01/06/17 20:33 Ionized Calcium 1.13 mmol/L (1.15-1.35) L 01/07/17 03:35 Phosphorus 1.9 mg/dL (2.3-4.7) L 01/07/17 03:35 Iron 18 mcg/dL (50-170) L 01/05/17 04:00 % Saturation 8 % (15-50) L 01/05/17 04:00 Transferrin 153 mg/dL (180-382) L 01/05/17 04:00 Ferritin 234 ng/ml (5-204) H 01/05/17 04:00 Alkaline Phosphatase 30 Units/L (38-126) L 01/04/17 04:26 Serum Total Protein 5.2 g/dL (6.0-8.3) L 01/04/17 04:26 Albumin 2.7 g/dL (3.5-5.0) L 01/04/17 04:26 - Microbiology Findings Microbiology Findings: Microbiology, Last 48 Hours 01/04/17 05:25 Sputum Culture - Final Sputum Escherichia coli Strep agalactiae - (Group B) - Clinical Findings Intake & Output: Intake & Output 01/06/17 01/06/17 01/07/17 15:59 23:59 07:59 Intake Total 650 / 650 540 / 540 0 / 0 Output Total 75 / 75 625 / 625 0 / 0 Balance 575 / 575 -85 / -85 0 / 0 Weight 68.4 kg Consult Discharge Plan - Plan Additional Instructions: Follow up with PCP within one week of discharge FOllow up with pulmonology within 4 weeks of discharge Finish prednisone taper as directed. Finish course of levaquin. Take senna plus as needed for constipation. return to emergency department if symptoms persist. Referrals: Francois Daly MD [Primary Care Provider] - 01/13/17 3:00 pm Adeline Ely MD [Partnered Physician] - 01/24/17 2:00 pm Prescriptions: levoFLOXacin [Levofloxacin] 750 mg PO DAILY #3 tablet predniSONE [PredniSONE] See Taper PO TAPER #6 tablet Sennosides/Docusate Sodium [Senna Plus] 1 each PO BID #60 tablet <Adeline Ely - Last Filed: 01/07/17 12:28> Date of Encounter: 01/07/17 Objective PUL Vital signs: Last Vital Signs Temp 98.0 F 01/07/17 07:42 Pulse 98 01/07/17 08:00 Resp 20 01/07/17 08:00 BP 160/83 01/07/17 08:00 Pulse Ox 95 01/07/17 09:16 Results - Laboratory Findings CBC and BMP: 01/07/17 03:35 01/07/17 03:35 ABG ABG pH 7.37 pH Units (7.32-7.45) 01/05/17 11:48 ABG pCO2 48 mmHg (35-45) H 01/05/17 11:48 ABG pO2 99 mmHg (85-104) 01/05/17 11:48 ABG O2 Saturation 97 % (95-98) 01/05/17 11:48 PT/INR, D-dimer PT 11.8 Seconds (9.4-12.1) 01/03/17 19:49 Abnormal lab findings: Abnormal lab results WBC 15.6 K/mcL (4.3-11.1) H 01/07/17 03:35 RBC 2.95 M/mcL (3.82-4.97) L 01/07/17 03:35 Hgb 9.0 g/dL (11.5-15.4) L 01/07/17 03:35 Hct 28.2 % (35.3-44.9) L 01/07/17 03:35 RDW 14.6 % (11.5-14.5) H 01/07/17 03:35 Band Neutrophils % 34.0 % (0-4) H 01/04/17 04:26 Neutrophils # 13.3 K/mcL (1.6-8.9) H 01/07/17 03:35 APTT 25.4 Seconds (26.0-36.0) L 01/03/17 19:49 ABG pCO2 48 mmHg (35-45) H 01/05/17 11:48 ABG HCO3 27.7 mEQ/L (21-27) H 01/05/17 11:48 ABG Total CO2 29.2 mEq/L (20-26) H 01/05/17 11:48 Carbon Dioxide 32 mEq/L (19-29) H 01/07/17 03:35 Glucose 109 mg/dL (70-99) H 01/07/17 03:35 Ionized Calcium 1.13 mmol/L (1.15-1.35) L 01/07/17 03:35 Phosphorus 1.9 mg/dL (2.3-4.7) L 01/07/17 03:35 Iron 18 mcg/dL (50-170) L 01/05/17 04:00 % Saturation 8 % (15-50) L 01/05/17 04:00 Transferrin 153 mg/dL (180-382) L 01/05/17 04:00 Ferritin 234 ng/ml (5-204) H 01/05/17 04:00 Alkaline Phosphatase 30 Units/L (38-126) L 01/04/17 04:26 Serum Total Protein 5.2 g/dL (6.0-8.3) L 01/04/17 04:26 Albumin 2.7 g/dL (3.5-5.0) L 01/04/17 04:26 - Microbiology Findings Microbiology Findings: Microbiology, Last 48 Hours 01/04/17 05:25 Sputum Culture - Final Sputum Escherichia coli Strep agalactiae - (Group B) - Clinical Findings Intake & Output: Intake & Output 01/06/17 01/07/17 01/07/17 23:59 07:59 15:59 Intake Total 540 / 540 0 / 0 480 / 480 Output Total 625 / 625 0 / 0 Balance -85 / -85 0 / 0 480 / 480 Weight 68.4 kg - Attending Attestation I examined this patient and my medical decision-making was reviewed with the CLOTH WIRE WEAVER/PA/Advanced Practice Nurse/Resident Physician. I agree with the documented findings, disposition and treatment plan as described except to the extent set forth below. Patient seen and examined. Labs, radiology, chart personally reviewed. Agree with resident's history and physical, assessment, plan with following comments: LAP LAYER: Patient follows commands, Pulmonary: Acceptable oxygenation and ventilation. Plan to discharge home on taper steroid and antibiotic. Patient uses home oxygen at night and qualified for daytime with 6 minute walk. Cardiovascular: stable GI: Nutrition per dietary and GI prophylaxis per routine Heme: DVT prophylaxis per routine. Follow-up with primary care for iron deficiency anemia ID: Continue antibiotics and plan to de-escalation Renal; urine out put and renal funtion reviewed Endorcine: blood glucose is monitored Lines: all lines checked and no evidence of infections Skin: skin care to prevent pressure ulcers per nursing routine care
[2017-01-07] MEDS ORDERED: Insulin LISPRO 300 UNITS/3 ML VIAL SQ SCH (07:30)
[2017-01-07] MEDS: Sennosides/Docusate Sodium TABLET PO SCH (07:37)
[2017-01-07] MEDS: ALPRAZolam 0.5 MG TABLET PO SCH (07:38)
[2017-01-07 08:08] VITALS: BP 160/83
[2017-01-07] MEDS: Budesonide/Formoterol 160/4.5 MDI IH SCH (08:43)
[2017-01-07] MEDS ORDERED: Levofloxacin 750 MG/150 ML 750 MG/150 ML BAG IVPB SCH (09:00)
[2017-01-07] MEDS ORDERED: Metoprolol XL (24 HR) Succ 25 MG TAB.ER.24H PO SCH (09:00)
[2017-01-07] MEDS ORDERED: levoFLOXacin 750 MG TABLET PO SCH (09:00)
[2017-01-07] MEDS ORDERED: predniSONE 20 MG TABLET PO SCH (09:00)
--- NOTE | 2017-01-07 11:16 | Discharge Summary ---
<Florence Tidwell - Last Filed: 01/07/17 11:01> Date of Encounter: 01/07/17 Time of Encounter: 09:00 - Discharge Diagnosis (1) Sepsis Priority: Primary Status: Acute Qualifiers: Sepsis type: sepsis due to unspecified organism Qualified Code(s): A41.9 - Sepsis, unspecified organism (2) Acute on chronic respiratory failure with hypoxia and hypercapnia Priority: Secondary Status: Acute (3) Bacterial pneumonia Priority: Secondary Status: Acute (4) COPD with acute exacerbation Priority: Secondary Status: Acute (5) Leukocytosis Priority: Secondary Status: Acute Qualifiers: Leukocytosis type: unspecified Qualified Code(s): D72.829 - Elevated white blood cell count, unspecified (6) Anemia Priority: Secondary Status: Acute Qualifiers: Anemia type: iron deficiency Iron deficiency anemia type: unspecified iron deficiency Qualified Code(s): D50.9 - Iron deficiency anemia, unspecified (7) DVT prophylaxis Priority: Secondary Status: Acute - Discharge Medications Prescriptions: levoFLOXacin [Levofloxacin] 750 mg PO DAILY #3 tablet predniSONE [PredniSONE] See Taper PO TAPER #6 tablet Sennosides/Docusate Sodium [Senna Plus] 1 each PO BID #60 tablet Home Medications: ALPRAZolam [Xanax 0.5 MG Tablet] 0.25 - 0.5 mg PO BID PRN 03/16/16 [History] Atorvastatin Calcium [Lipitor] 20 mg PO HS 03/16/16 [History] Citalopram Hydrobromide [Celexa] 40 mg PO QAM 03/16/16 [History] Cyclobenzaprine [Flexeril] 10 mg PO TID 03/16/16 [History] Metoprolol XL (24 HR) Succ [Toprol Xl] 25 mg PO DAILY 03/16/16 [History] Albuterol Neb [Proventil Neb] 2.5 mg IH TID PRN 10/27/16 [History] Budesonide/Formoterol 160/4.5 [Symbicort 160/4.5] 2 puff IH BIDR 10/27/16 [ History] Montelukast [Singulair] 10 mg PO HS 10/27/16 [History] Naloxegol Oxalate [Movantik] 25 mg PO DAILY 10/27/16 [History] Oxycodone HCl/Acetaminophen [Percocet 7.5-325 mg Tablet] 1 each PO TID PRN 10/27 [History] Varenicline Tartrate [Chantix] 1 mg PO Q12H 10/27/16 [History] Albuterol Sulfate [Proair Hfa] 2 puff IH Q4-6H PRN 12/24/16 [History] Tiotropium [Spiriva] 1 cap IH DAILY 12/24/16 [History] Gabapentin [Neurontin] 600 mg PO HS 01/04/17 [History] Sennosides/Docusate Sodium [Senna Plus] 1 each PO BID #60 tablet 01/07/17 [Rx] levoFLOXacin [Levofloxacin] 750 mg PO DAILY #3 tablet 01/07/17 [Rx] predniSONE [PredniSONE] See Taper PO TAPER #6 tablet 01/07/17 [Rx] Allergies/Adverse Reactions: Allergies No Known Allergies Allergy (Verified 01/04/17 07:02) Labs on day of discharge: Labs from last 24 hours 01/07/17 01/07/17 01/07/17 07:37 03:35 03:35 WBC 15.6 H RBC 2.95 L Hgb 9.0 L Hct 28.2 L MCV 95.6 MCH 30.5 MCHC 31.9 RDW 14.6 H Plt Count 238 MPV 9.6 Immature Gran % 0.8 Seg Neutrophils % 85.0 Lymphocytes % 8.1 Monocytes % 6.0 Eosinophils % 0.0 Basophils % 0.1 Neutrophils # 13.3 H Lymphocytes # 1.3 Monocytes # 0.9 Eosinophils # 0.0 Basophils # 0.0 Sodium Potassium Chloride Carbon Dioxide BUN Creatinine Est GFR ( Amer) Est GFR (Non-Af Amer) BUN/Creatinine Ratio Glucose POC Glucose 86 Calculated Osmolality Calcium Ionized Calcium 1.13 L Phosphorus 1.9 L Magnesium 2.1 01/07/17 01/06/17 01/06/17 03:35 20:33 15:42 WBC RBC Hgb Hct MCV MCH MCHC RDW Plt Count MPV Immature Gran % Seg Neutrophils % Lymphocytes % Monocytes % Eosinophils % Basophils % Neutrophils # Lymphocytes # Monocytes # Eosinophils # Basophils # Sodium 143 144 Potassium 4.2 3.9 Chloride 107 109 Carbon Dioxide 32 H 28 BUN 17 15 Creatinine 0.65 0.70 Est GFR ( Amer) > 60 > 60 Est GFR (Non-Af Amer) > 60 > 60 BUN/Creatinine Ratio 26 21 Glucose 109 H 118 H POC Glucose 136 H Calculated Osmolality 298 300 Calcium 8.6 8.7 Ionized Calcium Phosphorus Magnesium - Impressions ITS Impressions Chest X-Ray 01/04/17 05:55 IMPRESSION: 1. Stable asymmetric pulmonary consolidation more prominent on the left. 2. Endotracheal tube and right CVC in appropriate position. No pneumothorax. 3. Enteric tube in the stomach with the tip at the level of the pylorus. D/ / 01/04/2017 07:45:33 Valentin Reyez MD / giovanni Interpreting Provider: Valentin Reyez MD X-Ray 01/04/17 05:55 IMPRESSION: 1. Stable asymmetric pulmonary consolidation more prominent on the left. 2. Endotracheal tube and right CVC in appropriate position. No pneumothorax. 3. Enteric tube in the stomach with the tip at the level of the pylorus. D/ / 01/04/2017 07:45:33 Valentin Reeyz MD / giovanni Interpreting Provider: Valentin Reyez MD X-Ray 01/05/17 10:24 IMPRESSION: 1. Interval removal of the nasogastric tube. 2. Severe constipation including a large stool ball in the rectum. 3. Reticular opacities partially visualized in the lung bases. D/ / 01/05/2017 11:35:01 Breonna Sanchez MD / Nereyda Puri Interpreting Provider: Breonna Sanchez MD Date of admission: 01/03/17 21:39 Primary care physician: Francois Daly MD Consults: 01/04/17 04:54 Consult to Pulmonology [CONS] Routine Consulting Provider: Pulm Crit Care & Sleep Siria Reason for Consult: Resp Failure Call Completed: Yes 01/05/17 11:32 Consult to Invasive Line Access Team [CONS] Routine Reason for Consult: Limited vascular access Line Type: EPIV 01/06/17 07:41 Consult to Occupational Therapy [CONS] Routine Comment: Evaluate, develop and implement POC Reason for Consult: POC Consult to Physical Therapy [CONS] Routine Comment: Evaluate, develop and implement POC Reason for Consult: POC - Patient Status Disposition: Home, Self-Care Condition: Fair Functional capacity at discharge: independent ambulation Overall status at discharge: patient is progressing back to baseline - Discharge Instructions Follow Up With: Francois Daly MD [Primary Care Provider] - 01/13/17 3:00 pm Adeline Ely MD [Partnered Physician] - 01/24/17 2:00 pm Additional Instructions: Follow up with PCP within one week of discharge FOllow up with pulmonology within 4 weeks of discharge Finish prednisone taper as directed. Finish course of levaquin. Take senna plus as needed for constipation. return to emergency department if symptoms persist. - Diet and Activity Activity: increase activity as tolerated Diet: advance to your usual diet - Hospital Course Hospital course: Ms. Dutton is a 61 year old female with past medical history of COPD (on 2L home oxygen at night), HTN, asthma, chronic pain, arthritis, asthma, hyperlipidemia, anxiety, depression. Patient was recently discharged from [facility] on 12/27/16 after being treated for left lower lobe pneumonia and acute on chronic respiratory failure secondary to COPD exacerbation. Patient was discharged home and states she felt better for a few days but however her shortness of breath and cough returned shortly thereafter. She was admitted to [facility] again on 01/03/17 for acute on chronic respiratory failure with hypoxia and hypercapnia secondary to bacterial pneumonia and COPD exacerbation. Chest x- ray showed large left lung and moderate right lung pneumonia. Once patient's oxygen saturation dropped at home, she was confused as well. Head CT showed no acute intracranial abnormality. Patient met criteria for sepsis with fever, tachycardia, tachypnea, leukocytosis. Initial lactate with 1.3. She received fluid boluses and afterwards was placed on broad-spectrum antibiotics. Blood culture showed no growth. Sputum culture was positive for E. coli and group B Strep agalectiae. Antibiotics were de-escalated to Levaquin based on sensitivities. Patient was initially admitted to the general floor with BiPAP for respiratory acidosis. However, her hospital course was complicated by lack of improvement of respiratory acidosis, requiring intubation and transfer to ICU. Patient responded well to antibiotics and was successfully extubated after being monitored on mechanical ventilation. At first, patient was somnolent post extubation but quickly recovered and passed swallow eval. She showed significant clinical improvement throughout her hospital stay. She was evaluated by physical and occupational therapy while in the ICU. They recommended inpatient rehab due to significant weakness. However, patient denied inpatient rehab. Patient develop significant abdominal pain and constipation during her hospital stay. KUB showed large stool ball in the rectum. Her constipation is likely secondary to chronic pain medication use. SHe must be re evaluated by her PCP regarding this, and some of her pain medications may need to be discontinued. Of note, patient was found to have low iron during her hospital stay. However, she was not started on iron supplementation in the setting of sepsis. She will need to follow-up with her PCP after discharge and be placed on iron supplementation after her infection subsides. Overall, patient remained stable during the course of her hospital stay, and was stable at discharge. Plan: Follow up with PCP within one week of discharge FOllow up with pulmonology within 4 weeks of discharge Finish prednisone taper as directed. Finish course of levaquin. Take senna plus as needed for constipation. return to emergency department if symptoms persist. Time spent discussing smoking cessation with patient: 3 to 10 minutes - Time Spent with Patient Total time spent providing and/or coordinating discharge services: Physical Examination Vital Signs: Vital Signs, Last 4 Hours Temp Pulse Resp BP Pulse Ox 01/07/17 09:16 95 01/07/17 08:00 98 20 160/83 96 01/07/17 07:43 84 01/07/17 07:42 98.0 F General appearance: no acute distress, alert ENT: oropharynx moist Mallampati (class): 2 Neck: supple Effort: normal Auscultation: bilateral: diminished breath sounds, wheezes Cardiovascular: regular rate and rhythm Gastrointestinal: normoactive bowel sounds, soft, non-tender Integumentary: normal Extremities: no cyanosis, no edema, no clubbing Musculoskeletal: no deformities non-focal exam mood appropriate <Adeline Ely M - Last Filed: 01/07/17 12:30> Date of Encounter: 01/07/17 Labs on day of discharge: Labs from last 24 hours 01/07/17 01/07/17 01/07/17 11:46 07:37 03:35 WBC RBC Hgb Hct MCV MCH MCHC RDW Plt Count MPV Immature Gran % Seg Neutrophils % Lymphocytes % Monocytes % Eosinophils % Basophils % Neutrophils # Lymphocytes # Monocytes # Eosinophils # Basophils # Sodium Potassium Chloride Carbon Dioxide BUN Creatinine Est GFR ( Amer) Est GFR (Non-Af Amer) BUN/Creatinine Ratio Glucose POC Glucose 191 H 86 Calculated Osmolality Calcium Ionized Calcium 1.13 L Phosphorus 1.9 L Magnesium 2.1 01/07/17 01/07/17 01/06/17 03:35 03:35 20:33 WBC 15.6 H RBC 2.95 L Hgb 9.0 L Hct 28.2 L MCV 95.6 MCH 30.5 MCHC 31.9 RDW 14.6 H Plt Count 238 MPV 9.6 Immature Gran % 0.8 Seg Neutrophils % 85.0 Lymphocytes % 8.1 Monocytes % 6.0 Eosinophils % 0.0 Basophils % 0.1 Neutrophils # 13.3 H Lymphocytes # 1.3 Monocytes # 0.9 Eosinophils # 0.0 Basophils # 0.0 Sodium 143 Potassium 4.2 Chloride 107 Carbon Dioxide 32 H BUN 17 Creatinine 0.65 Est GFR ( Amer) > 60 Est GFR (Non-Af Amer) > 60 BUN/Creatinine Ratio 26 Glucose 109 H POC Glucose 136 H Calculated Osmolality 298 Calcium 8.6 Ionized Calcium Phosphorus Magnesium 01/06/17 15:42 WBC RBC Hgb Hct MCV MCH MCHC RDW Plt Count MPV Immature Gran % Seg Neutrophils % Lymphocytes % Monocytes % Eosinophils % Basophils % Neutrophils # Lymphocytes # Monocytes # Eosinophils # Basophils # Sodium 144 Potassium 3.9 Chloride 109 Carbon Dioxide 28 BUN 15 Creatinine 0.70 Est GFR ( Amer) > 60 Est GFR (Non-Af Amer) > 60 BUN/Creatinine Ratio 21 Glucose 118 H POC Glucose Calculated Osmolality 300 Calcium 8.7 Ionized Calcium Phosphorus Magnesium - Impressions ITS Impressions Chest X-Ray 01/04/17 05:55 IMPRESSION: 1. Stable asymmetric pulmonary consolidation more prominent on the left. 2. Endotracheal tube and right CVC in appropriate position. No pneumothorax. 3. Enteric tube in the stomach with the tip at the level of the pylorus. D/ / 01/04/2017 07:45:33 Valentin Reyez MD / giovanni Interpreting Provider: Valentin Reyez MD X-Ray 01/04/17 05:55 IMPRESSION: 1. Stable asymmetric pulmonary consolidation more prominent on the left. 2. Endotracheal tube and right CVC in appropriate position. No pneumothorax. 3. Enteric tube in the stomach with the tip at the level of the pylorus. D/ / 01/04/2017 07:45:33 Valentin Reyez MD / giovanni Interpreting Provider: Valentin Reyez MD X-Ray 01/05/17 10:24 IMPRESSION: 1. Interval removal of the nasogastric tube. 2. Severe constipation including a large stool ball in the rectum. 3. Reticular opacities partially visualized in the lung bases. D/ / 01/05/2017 11:35:01 Breonna Sanchez MD / Nereyda Puri Interpreting Provider: Breonna Sanchez MD Date of admission: 01/03/17 21:39 Primary care physician: Francois Daly MD Consults: 01/04/17 04:54 Consult to Pulmonology [CONS] Routine Consulting Provider: Pulm Crit Care & Sleep Siria Reason for Consult: Resp Failure Call Completed: Yes 01/05/17 11:32 Consult to Invasive Line Access Team [CONS] Routine Reason for Consult: Limited vascular access Line Type: EPIV 01/06/17 07:41 Consult to Occupational Therapy [CONS] Routine Comment: Evaluate, develop and implement POC Reason for Consult: POC Consult to Physical Therapy [CONS] Routine Comment: Evaluate, develop and implement POC Reason for Consult: POC - Hospital Course Hospital course: Ms. Dutton is a 61 year old female - Time Spent with Patient Total time spent providing and/or coordinating discharge services: Physical Examination Vital Signs: Vital Signs, Last 4 Hours Pulse Ox 01/07/17 09:16 95 - Attending Attestation I examined this patient and my medical decision-making was reviewed with the MINE CAPTAIN/PA/Advanced Practice Nurse/Resident Physician. I agree with the documented findings, disposition and treatment plan as described except to the extent set forth below. Patient feels significantly better and she stated she would quit smoking. Patient has a follow-up appointment in the pulmonary clinic. Patient will be discharged home on taper prednisone and to complete a course of antibiotics as well as oxygen continuously which was already arranged before hospitalization with the bronchodilators.
== END 2017-01-07 12:43 | disposition home or self-care (01) | DRG 871 ==
LOC: EMEROO 19:13 → SUATTDRO 21:39 → 2NENU 21:39 → ICNU 01-04 05:02
PROVIDERS: ADMIT Internal Medicine; ATTEND Internal Medicine Pulmonary Disease

== ENCOUNTER 2019-10-22 17:15 | Observation (INO) ==
[2019-10-22 17:50] LABS: Basophils # 0.1 K/mcL (0.0-0.2); Basophils % 0.5 %; Eosinophils # 0.2 K/mcL (0.0-0.6); Eosinophils % 1.5 %; Hematocrit 38.1 % (35.3-44.9); Immature Granulocytes % 0.3 % (0-4); Lymphocytes % 30.2 %; Mean Corpuscular HGB Conc 31.5 g/dL (31.6-35.5); Mean Corpuscular Hemoglobin 28.4 pg (28.0-33.3); Mean Corpuscular Volume 90.1 fL (83.0-100.0); Monocytes # 0.8 K/mcL (0.0-1.3); Monocytes % 7.7 %; Platelet Count 445 K/mcL (140-400); Red Blood Count 4.23 M/mcL (3.82-4.97); Red Cell Distribution Width 16.1 % (11.5-14.5); Segmented Neutrophils % 59.8 %
[2019-10-22 18:13] LABS: Alanine Aminotransferase 10 Units/L (7-52); Albumin/Globulin Ratio 1.7 (1.1-2.2); Alkaline Phosphatase 63 Units/L (34-104); Aspartate Amino Transferase 12 Units/L (13-39); BUN/Creatinine Ratio 18 (6-26); Bilirubin,Total 0.3 mg/dL (0.3-1.0); Blood Urea Nitrogen 13 mg/dL (8-23); Calcium 8.8 mg/dL (8.6-10.3); Carbon Dioxide 31 mEq/L (23-29); Chloride 97 mEq/L (98-107); Globulin 2.4 g/dL (2.4-3.5); Glucose 86 mg/dL (70-105); Osmolality,Calculated 273 (280-300); Potassium 3.5 mEq/L (3.5-5.1); Sodium 132 mEq/L (136-145); Total Protein 6.4 g/dL (6.4-8.9); Troponin I < 0.03 ng/mL (< 0.04); eGFR For African Americans > 60 (> 60); eGFR For Non-African Americans > 60 (> 60)
[2019-10-22] MEDS ORDERED: Naloxone 0.4 MG/ML INJ IVP PRN (20:27)
[2019-10-22] MEDS ORDERED: Ondansetron 4 MG/2 ML VIAL IVP PRN (20:27)
[2019-10-22] MEDS ORDERED: Acetaminophen 325 MG TABLET PO PRN (20:27)
[2019-10-22] MEDS ORDERED: 0.9 % Sodium Chloride 1,000 ML IVC SCH (20:30)
[2019-10-22] MEDS ORDERED: Ipratropium/Albuterol Neb 3 ML IH PRN (20:34)
[2019-10-22] MEDS: *HR* Heparin 5,000 UNIT/ML VIAL SQ SCH (21:31)
[2019-10-22] MEDS ORDERED: Levalbuterol Neb 1.25 MG/3 ML IH PRN (22:19)
[2019-10-22] MEDS ORDERED: Albuterol 2.5 MG/3 ML NEBULIZER IH PRN (22:19)
[2019-10-22] MEDS ORDERED: Gabapentin 300 MG CAPSULE PO SCH (22:30)
[2019-10-22] MEDS ORDERED: Budesonide/Formoterol 160/4.5 1 PUFF INH IH SCH (22:30)
[2019-10-22] MEDS: Sennosides/Docusate Sodium TABLET PO SCH (22:54)
[2019-10-22] MEDS: ALPRAZolam 0.25 MG TABLET PO PRN (22:54)
[2019-10-22] MEDS: Tiotropium 18 MCG inhalation IH SCH (23:44)
[2019-10-22] MEDS: Budesonide/Formoterol 160/4.5 1 PUFF INH IH SCH (23:44)
[2019-10-23] MEDS: Torsemide 20 MG TABLET PO SCH ×2 (00:16→08:50)
[2019-10-23 01:23] LABS: INR 0.9; Prothrombin Time 10.6 Seconds (9.4-12.1)
[2019-10-23 01:26] LABS: BUN/Creatinine Ratio 20 (6-26); Blood Urea Nitrogen 12 mg/dL (8-23); Calcium 8.8 mg/dL (8.6-10.3); Carbon Dioxide 30 mEq/L (23-29); Chloride 103 mEq/L (98-107); Chol/HDL Ratio 2.2 (0-4.9); Cholesterol 172 mg/dL (< 200); Glucose 119 mg/dL (70-105); HDL Cholesterol 79 mg/dL (40-59); LDL Cholesterol,Calculated 76 mg/dL (0-99); Magnesium 2.2 mg/dL (1.6-2.6); Osmolality,Calculated 285 (280-300); Phosphorous 3.6 mg/dL (2.7-4.5); Potassium 3.3 mEq/L (3.5-5.1); Sodium 137 mEq/L (136-145); Triglycerides 84 mg/dL (< 150); eGFR For African Americans > 60 (> 60); eGFR For Non-African Americans > 60 (> 60)
[2019-10-23 01:27] LABS: Basophils # 0.1 K/mcL (0.0-0.2); Basophils % 0.5 %; Eosinophils # 0.2 K/mcL (0.0-0.6); Eosinophils % 2.6 %; Hematocrit 37.6 % (35.3-44.9); Immature Granulocytes % 0.2 % (0-4); Lymphocytes # 2.8 K/mcL (0.6-4.6); Lymphocytes % 30.4 %; Mean Corpuscular HGB Conc 31.9 g/dL (31.6-35.5); Mean Corpuscular Hemoglobin 28.6 pg (28.0-33.3); Mean Corpuscular Volume 89.5 fL (83.0-100.0); Mean Platelet Volume 9.7 fL (9.4-12.4); Monocytes # 0.8 K/mcL (0.0-1.3); Monocytes % 8.3 %; Neutrophils # 5.3 K/mcL (1.6-8.9); Platelet Count 453 K/mcL (140-400); Red Cell Distribution Width 16.4 % (11.5-14.5); White Blood Count 9.2 K/mcL (4.3-11.1)
[2019-10-23] MEDS: *HR* Heparin 5,000 UNIT/ML VIAL SQ SCH (05:44)
[2019-10-23] MEDS ORDERED: MethylPREDNISolone 40 MG/ML VIAL IVP SCH (06:00)
[2019-10-23 06:57] VITALS: BP 139/94
[2019-10-23] MEDS: Budesonide/Formoterol 160/4.5 1 PUFF INH IH SCH (07:43)
[2019-10-23] MEDS: Tiotropium 18 MCG inhalation IH SCH (07:43)
[2019-10-23] MEDS: Sennosides/Docusate Sodium TABLET PO SCH (08:50)
[2019-10-23] MEDS: ALPRAZolam 0.25 MG TABLET PO PRN (09:49)
== END 2019-10-23 11:29 | disposition home or self-care (01) ==
LOC: 3BNU 17:15 → EMEROOARM 17:15 → SUATTDRO 19:05 → 3BNU 20:05
PROVIDERS: ADMIT Family Medicine; ATTEND Internal Medicine

== ENCOUNTER 2022-02-13 16:27 | Inpatient (IN) ==
[2022-02-13] MEDS ORDERED: Ipratropium/Albuterol Neb 3 ML IH ONE (16:45)
[2022-02-13] MEDS ORDERED: methylPREDNISolone 125 MG/2 ML VIAL IVP ONE (16:45)
[2022-02-13 17:23] LABS: BUN/Creatinine Ratio 25 (6-26); Blood Urea Nitrogen 18 mg/dL (8-23); Calcium 8.9 mg/dL (8.6-10.3); Carbon Dioxide 34 mEq/L (23-29); Chloride 89 mEq/L (98-107); Glucose 102 mg/dL (70-105); Osmolality,Calculated 268 (280-300); Potassium 4.2 mEq/L (3.5-5.1); Sodium 128 mEq/L (136-145); eGFR For African Americans > 60 (> 60); eGFR For Non-African Americans > 60 (> 60)
[2022-02-13 17:24] LABS: Troponin I < 0.03 ng/mL (< 0.04)
[2022-02-13 17:32] LABS: Influenza A PCR Negative (Negative); Influenza B PCR Negative (Negative); Resp. Syncytial Virus PCR Negative (Negative)
[2022-02-13 17:37] LABS: Basophils # 0.1 K/mcL (0.0-0.2); Basophils % 0.5 %; Eosinophils # 0.1 K/mcL (0.0-0.6); Eosinophils % 0.8 %; Hematocrit 38.9 % (35.3-44.9); Hemoglobin 12.5 g/dL (11.5-15.4); Immature Granulocytes % 0.5 % (0-4); Lymphocytes # 2.1 K/mcL (0.6-4.6); Lymphocytes % 15.9 %; Mean Corpuscular HGB Conc 32.1 g/dL (31.6-35.5); Mean Corpuscular Hemoglobin 30.9 pg (28.0-33.3); Mean Corpuscular Volume 96.3 fL (83.0-100.0); Mean Platelet Volume 9.1 fL (9.4-12.4); Monocytes # 1.1 K/mcL (0.0-1.3); Monocytes % 8.3 %; Neutrophils # 9.8 K/mcL (1.6-8.9); Platelet Count 425 K/mcL (140-400); Red Blood Count 4.04 M/mcL (3.82-4.97); Red Cell Distribution Width 15.2 % (11.5-14.5); White Blood Count 13.3 K/mcL (4.3-11.1)
[2022-02-13 17:38] LABS: SARS-CoV-2 by PCR (In House) Negative (Negative)
[2022-02-13] MEDS ORDERED: levoFLOXacin 750 MG/150 ML 750 MG/150 ML BAG IVPB ONE ×2 (18:40→22:00)
[2022-02-13] MEDS ORDERED: Acetaminophen 325 MG TABLET PO PRN (19:21)
[2022-02-13] MEDS ORDERED: Ondansetron 4 MG/2 ML VIAL IVP PRN (19:21)
[2022-02-13] MEDS ORDERED: Melatonin 3 MG TABLET PO PRN (19:21)
[2022-02-13] MEDS ORDERED: Naloxone 0.4 MG/ML INJ IVP PRN (19:21)
[2022-02-13 19:59] LABS: Magnesium 2.1 mg/dL (1.6-2.6); Phosphorous 4.2 mg/dL (2.7-4.5)
[2022-02-13] MEDS: Ipratropium/Albuterol Neb 3 ML IH SCH ×2 (20:29→23:15)
[2022-02-13 20:40] LABS: Procalcitonin < 0.02 ng/mL (0.00-0.15)
[2022-02-13 20:44] LABS: VBG HCO3 34 mEq/L (21-27); VBG PCO2 84 mmHg (41-51); VBG PH 7.21 pH Units (7.32-7.42); VBG PO2 84 mmHg (25-50)
[2022-02-13] MEDS ORDERED: 0.9 % Sodium Chloride 1,000 ML IVC ONE (21:10)
[2022-02-13 21:11] LABS: Vitamin B12 512 pg/mL (250-1100)
[2022-02-13] MEDS: *HR* Heparin 5,000 UNIT/ML VIAL SQ SCH (21:29)
[2022-02-13 21:43] LABS: Prothrombin Time 10.6 Seconds (9.4-12.1)
[2022-02-13] MEDS ORDERED: Dextrose Gel 15 GM/37.5 ML TUBE PO PRN ×2 (21:55)
[2022-02-13] MEDS ORDERED: D5% in Water 1,000 ML IVC PRN (21:55)
[2022-02-13] MEDS ORDERED: *HR* Dextrose 50 % in Water (Syg) 50 ML SYRINGE IVP PRN (21:55)
[2022-02-13 23:28] LABS: Bilirubin,Direct 0.1 mg/dL (0.0-0.2); Bilirubin,Indirect 0.3 mg/dL (0.0-1.0); Bilirubin,Total 0.4 mg/dL (0.3-1.0); Thyroid Stimulating Hormone 2.362 mcIU/mL (0.340-5.600); Total Protein 6.4 g/dL (6.4-8.9)
[2022-02-13 23:56] LABS: Albumin 3.9 g/dL (3.5-5.7); Albumin/Globulin Ratio 1.6 (1.1-2.2); Globulin 2.5 g/dL (2.4-3.5)
[2022-02-14] MEDS: methylPREDNISolone 125 MG/2 ML VIAL IVP SCH ×4 (00:17→23:16)
[2022-02-14 02:15] LABS: Bilirubin,Urine Negative (Negative); Blood,Urine Negative (Negative); Clarity,Urine Clear (Clear); Color,Urine Colorless (Yellow); Glucose,Urine (UA) Normal (Normal); Ketones,Urine Negative (Negative); Leukocyte Esterase,Urine Negative (Negative); Nitrite,Urine Negative (Negative); PH,Urine 6.5 pH Units (5.0-8.0); Protein,Urine Negative (Neg-Trace); Specific Gravity,Urine 1.007 (1.010-1.025); Urobilinogen,Urine Normal (Normal)
[2022-02-14] MEDS: Ipratropium/Albuterol Neb 3 ML IH SCH ×6 (03:15→22:44)
[2022-02-14 04:18] LABS: Hemoglobin 12.5 g/dL (11.5-15.4); Mean Corpuscular HGB Conc 31.3 g/dL (31.6-35.5); Mean Corpuscular Hemoglobin 31.1 pg (28.0-33.3); Mean Corpuscular Volume 99.5 fL (83.0-100.0); Mean Platelet Volume 9.4 fL (9.4-12.4); Platelet Count 377 K/mcL (140-400); Red Blood Count 4.02 M/mcL (3.82-4.97); Red Cell Distribution Width 15.2 % (11.5-14.5); White Blood Count 10.4 K/mcL (4.3-11.1)
[2022-02-14 05:00] LABS: BUN/Creatinine Ratio 20 (6-26); Blood Urea Nitrogen 11 mg/dL (8-23); Calcium 8.3 mg/dL (8.6-10.3); Carbon Dioxide 33 mEq/L (23-29); Chloride 97 mEq/L (98-107); Glucose 96 mg/dL (70-105); Osmolality,Calculated 275 (280-300); Sodium 133 mEq/L (136-145); eGFR For African Americans > 60 (> 60); eGFR For Non-African Americans > 60 (> 60)
[2022-02-14] MEDS: *HR* Heparin 5,000 UNIT/ML VIAL SQ SCH ×3 (05:55→21:35)
[2022-02-14 05:57] LABS: VBG HCO3 30 mEq/L (21-27); VBG PCO2 66 mmHg (41-51); VBG PH 7.27 pH Units (7.32-7.42); VBG PO2 174 mmHg (25-50)
[2022-02-14] MEDS ORDERED: levoFLOXacin 750 MG/150 ML 750 MG/150 ML BAG IVPB SCH ×2 (09:00→21:00)
[2022-02-14] MEDS ORDERED: predniSONE 20 MG TABLET PO SCH (09:00)
[2022-02-14 18:11] LABS: A.calcoaceticus-baumannii cplx Not Detected (Not Detect); Bacteroides fragilis by PCR Not Detected (Not Detect); Candida albicans by PCR Not Detected (Not Detect); Candida auris by PCR Not Detected (Not Detect); Candida glabrata by PCR Not Detected (Not Detect); Candida krusei by PCR Not Detected (Not Detect); Candida parapsilosis by PCR Not Detected (Not Detect); Candida tropicalis by PCR Not Detected (Not Detect); Crypto. neoformans/gattii PCR Not Detected (Not Detect); Enterobacter cloacae Cmplx PCR Not Detected (Not Detect); Enterobacterales by PCR Not Detected (Not Detect); Enterococcus faecalis by PCR Not Detected (Not Detect); Enterococcus faecium by PCR Not Detected (Not Detect); Escherichia coli by PCR Not Detected (Not Detect); Klebs. pneumoniae group by PCR Not Detected (Not Detect); Klebsiella aerogenes by PCR Not Detected (Not Detect); Klebsiella oxytoca by PCR Not Detected (Not Detect); Proteus by PCR Not Detected (Not Detect); Pseudomonas aeruginosa by PCR Not Detected (Not Detect); Salmonella species by PCR Not Detected (Not Detect); Serratia marcescens by PCR Not Detected (Not Detect); Staph epidermidis by PCR Not Detected (Not Detect); Staph lugdunensis by PCR Not Detected (Not Detect); Staphylococcus aureus by PCR Not Detected (Not Detect); Staphylococcus by PCR Not Detected (Not Detect); Stenotrophomonas maltophilia Not Detected (Not Detect); Streptococcus agalactiae(B)PCR Not Detected (Not Detect); Streptococcus by PCR DETECTED (Not Detect); Streptococcus pneumoniae PCR Not Detected (Not Detect); Streptococcus pyogenes (A) PCR Not Detected (Not Detect)
[2022-02-14] MEDS: Gabapentin 300 MG CAPSULE PO SCH (22:33)
[2022-02-14] MEDS: ALPRAZolam 0.5 MG TABLET PO PRN (22:33)
[2022-02-15 01:13] LABS: Hematocrit 36.7 % (35.3-44.9); Hemoglobin 11.8 g/dL (11.5-15.4); Mean Corpuscular HGB Conc 32.2 g/dL (31.6-35.5); Mean Corpuscular Hemoglobin 30.8 pg (28.0-33.3); Mean Corpuscular Volume 95.8 fL (83.0-100.0); Mean Platelet Volume 9.5 fL (9.4-12.4); Platelet Count 345 K/mcL (140-400); Red Blood Count 3.83 M/mcL (3.82-4.97); Red Cell Distribution Width 14.7 % (11.5-14.5); White Blood Count 15.5 K/mcL (4.3-11.1)
[2022-02-15 01:30] LABS: BUN/Creatinine Ratio 21 (6-26); Blood Urea Nitrogen 16 mg/dL (8-23); Calcium 8.7 mg/dL (8.6-10.3); Carbon Dioxide 30 mEq/L (23-29); Chloride 95 mEq/L (98-107); Glucose 145 mg/dL (70-105); Osmolality,Calculated 274 (280-300); Potassium 4.1 mEq/L (3.5-5.1); Sodium 130 mEq/L (136-145); eGFR For African Americans > 60 (> 60); eGFR For Non-African Americans > 60 (> 60)
[2022-02-15] MEDS: Ipratropium/Albuterol Neb 3 ML IH SCH ×6 (04:01→23:07)
[2022-02-15] MEDS: *HR* Heparin 5,000 UNIT/ML VIAL SQ SCH ×3 (05:21→20:06)
[2022-02-15] MEDS ORDERED: Perflutren Lipid Microsphere 1.3 ML in 0.9 % Sodium Chloride 8.7 ML IVP PRN (07:16)
[2022-02-15] MEDS: methylPREDNISolone 125 MG/2 ML VIAL IVP SCH (07:58)
[2022-02-15] MEDS: Gabapentin 300 MG CAPSULE PO SCH ×3 (07:59→20:05)
[2022-02-15] MEDS ORDERED: Iopamidol - 370 500 ML MLS IVP ONE (10:20)
[2022-02-15] MEDS ORDERED: Fluticasone Propionate Nasal 50 MCG/SPRAY BOTTLE NS PRN (15:57)
[2022-02-15] MEDS ORDERED: *HR* Metoprolol 5 MG/5 ML VIAL IVP ONE (19:49)
[2022-02-15] MEDS: Azithromycin 250 MG TABLET PO SCH (20:05)
[2022-02-15] MEDS: cefTRIAXone 2,000 MG in 0.9 % Sodium Chloride Mini Bag 100 ML IVPB SCH (20:06)
[2022-02-15] MEDS: Budesonide/Formoterol 160/4.5 1 PUFF INH IH SCH (20:24)
[2022-02-15] MEDS: ALPRAZolam 0.5 MG TABLET PO PRN (21:55)
[2022-02-16] MEDS: Ipratropium/Albuterol Neb 3 ML IH SCH ×6 (03:47→23:04)
[2022-02-16] MEDS: *HR* Heparin 5,000 UNIT/ML VIAL SQ SCH ×3 (05:13→20:03)
[2022-02-16 05:41] LABS: ABG Base Excess 1 mEq/L (-2 to 3); ABG HCO3 29 mEq/L (21-27); ABG Oxygen Saturation 93 % (95-98); ABG PCO2 57 mmHg (35-45); ABG PH 7.31 pH Units (7.32-7.45); ABG PO2 75 mmHg (85-104); ABG TCO2 30 mEq/L (20-26)
[2022-02-16 06:23] LABS: Basophils % 0.1 %; Eosinophils # 0.1 K/mcL (0.0-0.6); Eosinophils % 0.2 %; Hematocrit 39.3 % (35.3-44.9); Hemoglobin 12.3 g/dL (11.5-15.4); Immature Granulocytes % 1.1 % (0-4); Lymphocytes # 0.5 K/mcL (0.6-4.6); Lymphocytes % 2.1 %; Mean Corpuscular HGB Conc 31.3 g/dL (31.6-35.5); Mean Corpuscular Hemoglobin 30.6 pg (28.0-33.3); Mean Corpuscular Volume 97.8 fL (83.0-100.0); Mean Platelet Volume 9.4 fL (9.4-12.4); Monocytes # 0.9 K/mcL (0.0-1.3); Monocytes % 3.9 %; Neutrophils # 20.5 K/mcL (1.6-8.9); Platelet Count 372 K/mcL (140-400); Red Blood Count 4.02 M/mcL (3.82-4.97); Red Cell Distribution Width 15.4 % (11.5-14.5); Segmented Neutrophils % 92.6 %; White Blood Count 22.1 K/mcL (4.3-11.1)
[2022-02-16 06:40] LABS: BUN/Creatinine Ratio 29 (6-26); Blood Urea Nitrogen 21 mg/dL (8-23); Calcium 8.6 mg/dL (8.6-10.3); Carbon Dioxide 30 mEq/L (23-29); Chloride 100 mEq/L (98-107); Glucose 165 mg/dL (70-105); Osmolality,Calculated 287 (280-300); Sodium 135 mEq/L (136-145); eGFR For African Americans > 60 (> 60); eGFR For Non-African Americans > 60 (> 60)
[2022-02-16] MEDS: Budesonide/Formoterol 160/4.5 1 PUFF INH IH SCH ×2 (07:40→20:18)
[2022-02-16] MEDS: Tiotropium 10 INH DOSE IH SCH (07:42)
[2022-02-16] MEDS: Gabapentin 300 MG CAPSULE PO SCH ×3 (08:15→20:02)
[2022-02-16] MEDS: predniSONE 20 MG TABLET PO SCH (08:16)
[2022-02-16] MEDS ORDERED: Mag Hydrox/Al Hydrox/Simeth 30 ML UDC PO PRN (14:36)
[2022-02-16] MEDS: Azithromycin 250 MG TABLET PO SCH (20:02)
[2022-02-16] MEDS: cefTRIAXone 2,000 MG in 0.9 % Sodium Chloride Mini Bag 100 ML IVPB SCH (20:14)
[2022-02-17] MEDS: Ipratropium/Albuterol Neb 3 ML IH SCH ×6 (03:40→23:40)
[2022-02-17] MEDS: *HR* Heparin 5,000 UNIT/ML VIAL SQ SCH ×3 (03:59→21:29)
[2022-02-17 05:18] LABS: Basophils % 0.1 %; Eosinophils # 0.3 K/mcL (0.0-0.6); Eosinophils % 1.4 %; Hematocrit 40.2 % (35.3-44.9); Hemoglobin 12.6 g/dL (11.5-15.4); Immature Granulocytes % 0.7 % (0-4); Lymphocytes # 1.3 K/mcL (0.6-4.6); Mean Corpuscular HGB Conc 31.3 g/dL (31.6-35.5); Mean Corpuscular Hemoglobin 30.6 pg (28.0-33.3); Mean Corpuscular Volume 97.6 fL (83.0-100.0); Mean Platelet Volume 9.8 fL (9.4-12.4); Monocytes # 1.5 K/mcL (0.0-1.3); Neutrophils # 15.2 K/mcL (1.6-8.9); Platelet Count 353 K/mcL (140-400); Red Blood Count 4.12 M/mcL (3.82-4.97); Red Cell Distribution Width 16.1 % (11.5-14.5); Segmented Neutrophils % 82.8 %; White Blood Count 18.3 K/mcL (4.3-11.1)
[2022-02-17 05:37] LABS: BUN/Creatinine Ratio 31 (6-26); Blood Urea Nitrogen 20 mg/dL (8-23); Calcium 9.3 mg/dL (8.6-10.3); Carbon Dioxide 36 mEq/L (23-29); Chloride 99 mEq/L (98-107); Glucose 87 mg/dL (70-105); Osmolality,Calculated 284 (280-300); Potassium 4.6 mEq/L (3.5-5.1); Sodium 136 mEq/L (136-145); eGFR For African Americans > 60 (> 60); eGFR For Non-African Americans > 60 (> 60)
[2022-02-17] MEDS: Budesonide/Formoterol 160/4.5 1 PUFF INH IH SCH ×2 (07:28→19:48)
[2022-02-17] MEDS: Tiotropium 10 INH DOSE IH SCH (07:36)
[2022-02-17] MEDS: Gabapentin 300 MG CAPSULE PO SCH ×3 (07:46→21:31)
[2022-02-17] MEDS: predniSONE 20 MG TABLET PO SCH (07:46)
[2022-02-17] MEDS: ALPRAZolam 0.5 MG TABLET PO PRN ×2 (07:49→21:31)
[2022-02-17] MEDS ORDERED: 0.9 % Sodium Chloride 500 ML IVC ONE (10:23)
[2022-02-17] MEDS ORDERED: *HR* FentaNYL (PF) 100 MCG/2 ML VIAL IVP PRN (10:23)
[2022-02-17] MEDS ORDERED: *HR* Midazolam HCl 5 MG/5 ML VIAL IVP PRN (10:23)
[2022-02-17] MEDS ORDERED: Lidocaine Viscous Oral Soln 15 ML SOLUTION MM PRN (10:23)
[2022-02-17] MEDS: cefTRIAXone 2,000 MG in 0.9 % Sodium Chloride Mini Bag 100 ML IVPB SCH (21:30)
[2022-02-17] MEDS: Azithromycin 250 MG TABLET PO SCH (21:31)
[2022-02-18 02:42] LABS: Basophils % 0.3 %; Eosinophils % 0.1 %; Hematocrit 40.2 % (35.3-44.9); Hemoglobin 12.6 g/dL (11.5-15.4); Lymphocytes # 1.2 K/mcL (0.6-4.6); Lymphocytes % 8.4 %; Mean Corpuscular HGB Conc 31.3 g/dL (31.6-35.5); Mean Corpuscular Volume 98.8 fL (83.0-100.0); Mean Platelet Volume 9.9 fL (9.4-12.4); Monocytes # 1.4 K/mcL (0.0-1.3); Monocytes % 9.4 %; Neutrophils # 11.9 K/mcL (1.6-8.9); Platelet Count 317 K/mcL (140-400); Red Blood Count 4.07 M/mcL (3.82-4.97); Red Cell Distribution Width 15.9 % (11.5-14.5); Segmented Neutrophils % 80.8 %; White Blood Count 14.7 K/mcL (4.3-11.1)
[2022-02-18 03:07] LABS: BUN/Creatinine Ratio 36 (6-26); Blood Urea Nitrogen 20 mg/dL (8-23); Calcium 8.9 mg/dL (8.6-10.3); Carbon Dioxide 34 mEq/L (23-29); Chloride 96 mEq/L (98-107); Glucose 89 mg/dL (70-105); Osmolality,Calculated 286 (280-300); Potassium 4.6 mEq/L (3.5-5.1); Sodium 137 mEq/L (136-145); eGFR For African Americans > 60 (> 60); eGFR For Non-African Americans > 60 (> 60)
[2022-02-18] MEDS: Ipratropium/Albuterol Neb 3 ML IH SCH ×4 (03:56→15:27)
[2022-02-18] MEDS: *HR* Heparin 5,000 UNIT/ML VIAL SQ SCH ×2 (05:44→14:37)
[2022-02-18] MEDS: Tiotropium 10 INH DOSE IH SCH (07:27)
[2022-02-18] MEDS: Budesonide/Formoterol 160/4.5 1 PUFF INH IH SCH (07:27)
[2022-02-18] MEDS: predniSONE 20 MG TABLET PO SCH (08:36)
[2022-02-18] MEDS: Gabapentin 300 MG CAPSULE PO SCH ×2 (08:36→15:13)
[2022-02-18] MEDS: ALPRAZolam 0.5 MG TABLET PO PRN (08:38)
[2022-02-18] MEDS ORDERED: Bisacodyl 10 MG RECTAL SUPPOSITORY RC SCH (09:00)
[2022-02-18 12:03] VITALS: BP 166/95; PULSE 93; TEMP 98.5; O2SAT 90
[2022-02-18] MEDS ORDERED: cefTRIAXone 2,000 MG in 0.9 % Sodium Chloride 20 ML IVP SCH (21:00)
== END 2022-02-18 16:59 | disposition home or self-care (01) | DRG 189 ==
LOC: 2ANU 16:27 → EMEROOARM 16:27 → SUATTDRO 19:21 → 2ANU 20:45 → SUATTDRO 02-14 18:35
PROVIDERS: ADMIT Internal Medicine; ATTEND Internal Medicine